=== PATIENT | male | born 1990 | race Caucasian/White ===

== ENCOUNTER 2024-07-17 03:34 | Emergency (ER) | payer OTHER, SELFPAY ==
[2024-07-17 03:41] VITALS: BP 144/88; PULSE 70; TEMP 36.6; O2SAT 99; BMI 18.8
--- OUTSIDE RECORDS SUMMARY | 2024-07-17 03:52 | XMS_ITS | Encounter Summary ---
Author Organization [facility] Address [address] [place] [address] Care Team Providers Care Sweat Band Sewer Name Role Phone Baron Serrato Primary Care Provider [phone] Reason for Visit * Reason Comments Medication Refill Encounter Details Date Type Department Care Team (Late Contact Info) Description 10/14/[address] [place] [id number] Lucio Gauthier MD [facility] [place] [address] Medication Refill Social History Tobacco Use Types Packs/Day Years Used Date Smoking Tobacco: Every Day Cigarettes 1 9 Smokeless Tobacco: Never Alcohol Use Standard Drinks/Week Comments Yes 0 (1 standard drink = 0.6 oz pur e alcohol) socially PHQ-2 Answer Date Recorded PHQ-9 Total Score 0 02/25/2020 Sex and Gender Information Value Date Recorded Sex Assigned at Not on file Legal Sex Male 1:02 PM EST Gender Identity Not on file Sexual Orientation Not on file COVID-19 Exposure Response Date Recorded In the last month, have you been in contact with someone who was confirmed or suspected to have Coronavirus / COVID-19? No / Unsure 10/02/2020 10:57 AM EDT documented as of this encounter Plan of Treatment Upcoming Encounters Date Type Department Care Team (Late Contact Info) Description 08/12/2024 11:00 AM EDT Office Visit [facility] [address] [place] [address] [place] [address] [place] [address] 6 month f/u documented as of this encounter Visit Diagnoses Diagnosis Erectile dysfunction, unspecified erectile dysfunction type documented in this encounter Additional Health Concerns Infection Onset Date Last Indicated Resolved Time COVID-19 (Rule Out) 11/05/2022 11/05/2022 11/06/19 2:11 AM EDT documented as of this encounter Care Teams Sweat Band Sewer Relationship Specialty [place] [address] [place] [address] PCP - General Physician Academic Affairs Coordinator 02/12/24 documented as of this encounter
--- OUTSIDE RECORDS SUMMARY | 2024-07-17 03:52 | XMS_ITS | Encounter Summary ---
Author Organization [facility] [employer] [facility] tem Address [id number] [address] [place] [address] Care Team Providers Care Senior Network Security Architect Name Role Phone No Pcp, No Pcp Primary Care Provider Unavailabl e Encounter Details Date Type Department Care Team (Late st Contact Info) Description 11/24/2016 Documentation [facility] - 8 MED-SURG/ORTHO [address] [place] [phone] Coral Jones, SHADE BANDER-ALIGNMENT TECHNICIAN [address] [place] [address] Social History Tobacco Use Types Packs/Day Years Used Date Smoking Tobacco: Every Day Cigarettes 1 10 Smokeless Tobacco: Never Alcohol Use Standard Drinks/Week Comments Yes 6 (1 standard drink = 0.6 oz pur e alcohol) 2-6 cans beer daily Sex and Gender Information Value Date Recorded Sex Assigned at Male 12/20/2023 12:02 PM EST Legal Sex Male 9:41 PM EDT Gender Identity Male 12/20/2023 12:02 PM EST Sexual Orientation Not on file documented as of this encounter Plan of Treatment Not on file documented as of this encounter Visit Diagnoses Not on filedocumented in this encounter Care Teams Senior Network Security Architect Relationship Specialty Start Date End Date No Pcp, [place] [address] PCP - General Family Medicine 12/20/23 documented as of this encounter
--- OUTSIDE RECORDS SUMMARY | 2024-07-17 03:52 | XMS_ITS | Encounter Summary ---
Author Organization [facility] tem Address [id number] [address] [place] [address] Care Team Providers Care Hydro Operator Name Role Phone No Pcp, No Pcp Primary Care Provider Unavailabl e Encounter Details Date Type Department Care Team (Late st Contact Info) Description 11/24/2016 Telephone [facility] - 8 MED-SURG/ORTHO [address] [place] [phone] Coral Jones, CANCER REGISTRAR-COFFERDAM CONSTRUCTION SUPERVISOR [address] [place] [address] Social History Tobacco Use Types Packs/Day Years [...] on filedocumented in this encounter Care Teams Hydro Operator Relationship Specialty Start Date End Date No Pcp, [place] [address] PCP - General Family Medicine 12/20/23 documented as of this encounter
--- OUTSIDE RECORDS SUMMARY | 2024-07-17 03:52 | XMS_ITS | Clinical Summary ---
Author Organization [employer] tem Address [id number] [address] [place] [address] Care Team Providers Care Absorption Plant Operator Helper Name Role Phone No Pcp, No Pcp Primary Care Provider Unavailabl e Allergies Active Allergy Reactions Criticality Noted Date Comments Aspirin 07/25/2016 Ibuprofen 12/21/2022 Ketorolac Flushing Low 12/22/2022 Medications vefhsu-ssygtbjp-ce ylase 40,000-126,000- 168,000 unit capsule,delayed release(DR/EC) Take 80,000 Units by mouth in the morning and 80,000 Units at noon and 80,000 Units in the evening. Take before meals. 12/17/19 23 Active pantoprazole (PROTONIX) 40 mg EC tablet Take 1 tablet (40 mg total) by mouth every morning before breakfast. 12/09/19 23 Active SENNA 8.6 mg tablet Take 2 tablets (17.2 mg total) by mouth daily as needed for constipation. Active thiamine HCl (VITAMIN B-1) 100 mg tablet Take 1 tablet (100 mg total) by mouth in the morning. 30 tablet 12/25/19 23 Active ondansetron ODT (ZOFRAN ODT) 4 mg disintegrating tablet Dissolve 1 tablet (4 mg total) on tongue every 8 (eight) hours as needed for nausea for up to 10 doses. 10 tablet 12/20/19 24 Active naloxone (NARCAN) 4 mg/actuation spray,non-aerosol nasal spray Administer 1 spray (4 mg total) into alternating nostrils as needed for opioid reversal. 12/20/19 24 Active Active Problems Problem Noted Date Diagnosed Date Alcohol-induced acute pancre atitis, unspecified complication status 12/21/2022 Sinus bradycardia 12/21/2022 Alcohol use disorder 12/21/2022 Acute on chronic pancreatitis 03/31/2022 Alcohol-induced chronic pancreatitis 08/30/2020 H/O acute pancreatitis 03/10/2017 Acute pancreatitis 02/19/2017 History of alcohol abuse 11/24/2016 H/O chronic pancreatitis 11/24/2016 Cigarette nicotine dependence without complicati on 11/24/2016 Smoking 09/24/2016 Pancreatitis 09/19/2016 Resolved Problems Problem Noted Date Diagnosed Date Resolved Date Pancreatic duct stones 10/17/202211/24 Bradycardia 07/16/2022 11/25/2023 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 01/12/2021 11/25/2023 Fatigue 01/12/2021 11/25/2023 Closed posterior dislocation of elbow, left, sequela 08/30/2020 11/25/2023 Herpes simplex virus infection 08/30/2020 11/25/2023 Alcohol-induced acute pancreatitis 11/21/2016 11/24/2016 Alcohol abuse 09/24/2016 11/24/2016 Genital herpes simplex 11/16/201411/24 Immunizations Immunization Administration Dates Next Due Influenza, Injectable, quadrivalent (PF) 017 Pneumococcal Polysaccharide 08/30/2020 Tdap 05/08/2020 Family History Medical History Relation Name Comments Asthma Brother 1 No Known Problems Brother 2 Heart disease Father Tobias Hypertension Father Tobias Other Father Tobias Heart Stent Hyperlipidemia Mother Bisi Hypertension Paternal Grandfather No Known Problems Sister Relation Name Status Comments Brother 1 Alive Brother 2 Alive Daughter 1 Alive Daughter 2 Alive Daughter 3 Alive Father Tobias Alive Mother Bisi Alive Paternal Grandfather Alive Paternal Grandmother Sister Alive Social History Tobacco Use Types Packs/Day Years Used Date Smoking Tobacco: Every Day Cigarettes 1 12 Smokeless Tobacco: Never Tobacco Cessation:Ready to Q uit: Not Asked; Counseling Given: Not Answered Alcohol Use Standard Drinks/Week Comments Yes 51 (1 standard drink = 0.6 oz pu re alcohol) 12 pack beer per day AUDIT-C Answer Date Recorded Frequency of Alcohol Consumption Never 12/03/2019 Average Number of Drinks Not on file 10/23/2 020 Frequency of Binge Drinking Not on file 11/11 PHQ-2 Answer Date Recorded Total Score 3 12/21/2022 Housing Instability Answer Date Recorde d Are you worried or concerned that in the next two months you may not have stable housing that you own, rent or stay in as a part of a household? No 12/23/2022 Childcare Answer Date Recorded Childcare Unknown 07/21/2018 Employment Answer Date Recorded Employment Unknown 07/21/2018 Hunger Screening Answer Date Recorded Within the past 12 months we worried whether our food would run out before we got money to buy more. Never True 12/20/2023 Within the past 12 months th e food we bought just didn't last and we didn't have money to get more. Never True 12/20/2023 Purpose - Life Answer Date Recorded Purpose and direction in life Unknown Sex and Gender Information Value Date Recorded Sex Assigned at Male 12/20/2023 12:02 PM EST Legal Sex Male 9:41 PM EDT Gender Identity Male 12/20/2023 12:02 PM EST Sexual Orientation Not on file Last Filed Vital Signs Vital Sign Reading Time Taken Comments Blood Pressure 132/83 12/20/2023 3:45 PM EST Pulse 71 12/20/2023 3:45 PM EST Temperature 36.2 C (97.1 F) 12/20/2023 11:57 AM EST Respiratory Rate 18 12/20/2023 3:45 PM EST Oxygen Saturation 98% 12/20/2023 4:00 PM EST Inhaled Oxygen Concentration - - Weight 54.9 kg (121 lb) 12/20/2023 11:57 AM EST Height 170.2 cm (5' 7 ) 12/21/2022 8:50 AM EST Body Mass Index 18.95 12/21/2022 8:50 AM EST Plan of Treatment Health Maintenance Due Date Last Done Comments Tobacco Counseling 1988 Depression Screening 12/22/2023 12/21/2022 Tobacco Screening 12/22/2023 12/21/2022 Influenza Vaccine 10/11/2024 11/23/2016 Adult BMI Screening 12/19/2024 12/20/2023 DTaP,Tdap and Td Vaccines (3 - Td or Tdap) 10/06/2033 10/07/2023, 05/08/2020 Goals Goal Patient Goal Type Associated Problems Recent Progress Patient-Stated? Author safe discharge General Yes Marifer Saleem LSW Note: Evaluation of progress towards goal: Home, self care. Patient says he plans to quit drinking without professional support or peer support. SW used Motivational Interviewing to help patient identify goals and motivation for change. He says his primary motivation to make this change is to protect the relationship he has with his children. He also pays child support and time in the hospital is time away from working to support his children. He further states if he does not pay his child support, he could have legal consequences. Patient says he does not identify as an alcoholic because he does not feel the need to drink. He says he chooses to drink again after periods of abstinence because he gets bored. He was not interested in further developing a relapse prevention plan at this time. Medical Devices Not on file Insurance [employer] [facility] Directives * Full Code (Latest Code Status on File) Date Activated Date Inactivated Comments 12/21/2022 1:38 AM 12/23/2022 4:42 PM * Full Code Date Activated Date Inactivated Comments 03/31/2022 9:15 PM 04/02/2022 7:13 PM * Full Code Date Activated Date Inactivated Comments 11/21/2016 4:40 PM 11/24/2016 1:51 PM * Full Code Date Activated Date Inactivated Comments 09/19/2016 5:42 PM 09/24/2016 7:47 PM Care Teams Absorption Plant Operator Helper Relationship Specialty Start Date End Date No Pcp, [place] [address] PCP - General Family Medicine 12/20/23
--- OUTSIDE RECORDS SUMMARY | 2024-07-17 03:52 | XMS_ITS | Clinical Summary ---
Author Organization [employer] [facility] 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 Intended supply: 90 days 180 capsule 1 04/17/19 25 025 Active Additional Information Patient not taking.Reported on 05/24/2024 ketoconazole (NIZORAL) 2 % shampooIndicat ions:Tinea versicolor Apply topically daily as needed. 120 mL 2 06/12/19 25 Active acetaminophen (TYLENOL) 500 MG tablet Take 2 tablets by mouth 2 times daily as needed for Pain 120 tablet 08/24/19 21 022 Discontinued escitalopram (LEXAPRO) 10 MG tabletIndicati ons:Current severe episode of major depressive 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 ([facility]) Take 1 tablet by mouth daily 30 tablet 1 02/13/19 22 022 Discontinued Active Problems Problem Noted Date Diagnosed Date Hospice care 07/07/2024 Pancreatitis, unspecified pancreatitis type 04/10 Chronic pancreatitis due to chronic alcoholism 0 04/25/2024 Alcohol abuse 03/24/2024 Normocytic anemia 03/23/2024 Proteinuria 03/23/2024 Transaminitis 11/22/2023 Moderate cigarette smoker (10-19 per day) 2023 Hyperglycemia 11/22/2023 Poor compliance 11/21/2023 Vapes nicotine containing substance 10/15/2022 Alcohol-induced acute pancre atitis without infection or necrosis 10/14/2022 Acute on chronic pancreatitis 07/16/2022 Alcohol use disorder 07/16/2022 Bradycardia 07/16/2022 Alcohol-induced acute pancreatitis 07/16/2022 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 01/12/2021 Assessment & Plan (02/12/2024 9:31 AM EST): Chronic, at goal (stable), continue current treatment plan Fatigue 01/12/2021 Closed posterior dislocation of elbow, left, seq uela 08/30/2020 Alcohol-induced chronic pancreatitis 08/30/2020 Herpes simplex virus infection 08/30/2020 Need for prophylactic vaccin ation against Streptococcus pneumoniae (pneumococcus) 08/30/2020 Resolved Problems Problem Noted Date Diagnosed Date Resolved Date Alcohol induced acute pancreatitis 11/26/2023 02/12/2024 Acute pancreatitis, unspecif ied complication status, unspecified pancreatitis type 11/21/2023 Malnutrition 11/21/2023 02/12/2024 Pancreatic duct stones 10/17/202202/11 Healthcare maintenance 08/30/202009/29 Encounters Date Type Department Care Team Description 06/11/2024 Telephone [facility] [address] [place] [address] Baron Serrato PA Medication Problem 05/24/2024 9:30 AM EDT Office Visit [facility] [address] [place] [address] Iglesia Esqueda DO Alcoholism (HCC) (Primary Dx); Alcohol-induced chronic pancreatitis (HCC); Nose irritation; Tinea versicolor 05/04/2024 Telephone [facility] [address] [place] [address] Lucio Gavin MD Other 04/25/2024 12:55 PM EDT - 04/28/2024 10:56 AM EDT Hospital Encounter [facility] [address] [place] [address] Kulwant Renee DO Matto, Shevan, MD Acute on chronic pancreatitis (HCC) (Primary Dx); Bradycardia; Chronic pancreatitis due to chronic alcoholism (HCC) Discharge Disposition: Home or Self Care 04/25/2024 Travel 04/16/2024 9:30 AM EST Office Visit [facility] [address] [address] [place] [address] [place] [address] Iglesia Esqueda DO Alcohol-induced chronic pancreatitis (HCC) (Primary Dx); Alcoholism (HCC); Irritation of nose from Last 3 Months Immunizations Immunization Administration Dates Next Due Influenza, FLUARIX, FLULAVAL , FLUZONE (age 6 mo+) and AFLURIA, (age 3 y+), Quadv PF, 0.5mL 11/23/2016 Pneumococcal, PPSV23, PNEUMO VAX 23, (age 2y+), SC/IM, 0.5mL 08/30/2020 TDaP, ADACEL (age 10y-64y), BOOSTRIX (age 10y+), IM, 0.5mL 10/07/2023,05/08/2020 Family History Medical History Relation Name Comments No Known Problems Father No Known Problems Mother Breast Cancer Paternal Aunt Cancer Paternal Grandfather Colon Cancer Paternal Grandfather Heart Disease Paternal Grandfather Relation Name Status Comments Father Alive Mother Alive Paternal Aunt Paternal Grandfather Social History Tobacco Use Types Packs/Day Years Used Date Smoking Tobacco: Former Cigarettes 0.5 17 0 02/10/2005 - 02/10/2022 Smokeless Tobacco: Never Tobacco Cessation:Counseling Given: Yes Alcohol Use Standard Drinks/Week Comments Not Currently 0 (1 standard drink = 0.6 oz pur e alcohol) [facility] Utilities Answer Date Recorded In the past 12 months has th e electric, gas, oil, or water company threatened to shut off services in your home? No 04/26/2024 AUDIT-C Answer Date Recorded Q1: How often do you have a drink containing alcohol? Never 10/07/2023 Q2: How many drinks containi ng alcohol do you have on a typical day when you are drinking? Patient does not drink Q3: How often do you have si x or more drinks on one occasion? Never 10/07/2023 Overall Financial Resource Strain (CARDIA) Answe r Date Recorded How hard is it for you to pa y for the very basics like food, housing, medical care, and heating? Not hard at all 02/12/2024 PHQ-2 Answer Date Recorded PHQ-9 Total Score 0 02/25/2024 Hunger Vital Sign Answer Date Recorded Within the past 12 months, y ou worried that your food would run out before you got the money to buy more. Never true 04/27/19 25 Within the past 12 months, t he food you bought just didn't last and you didn't have money to get more. Never true 04/26/2024 PRAPARE - Transportation Answer Date Re corded In the past 12 months, has l ack of transportation kept you from medical appointments or from getting medications? No 04/10 In the past 12 months, has l ack of transportation kept you from meetings, work, or from getting things needed for daily living? No 04/26/2024 Housing Stability Vital Sign Answer Colby e Recorded In the last 12 months, was t here a time when you were not able to pay the mortgage or rent on time? No 04/26/2024 In the past 12 months, how m any times have you moved where you were living? 0 04/26/2024 At any time in the past 12 m [facility], were you homeless or living in a snf (including now)? No 04/26/2024 Food Insecurity Answer Date Recorded Within the past 12 months, y ou worried that your food would run out before you got the money to buy more. 1 04/26/2024 Within the past 12 months, t he food you bought just didn't last and you didn't have money to get more. 1 04/26/2024 Interpersonal Safety Domain Source: IP Abuse Scr eening Answer Date Recorded Physical abuse Denies 04/25/2024 Verbal abuse Denies 04/25/2024 Emotional abuse Denies 04/25/2024 Financial abuse Denies 04/25/2024 Sexual abuse Denies 04/25/2024 Sex and Gender Information Value Date Recorded Sex Assigned at Not on file Legal Sex Male 1:02 PM EST Gender Identity Not on file Sexual Orientation Not on file Last Filed Vital Signs Vital Sign Reading Time Taken Comments Blood Pressure 102/64 05/24/2024 9:23 AM EDT Pulse 61 05/24/2024 9:23 AM EDT Temperature 36.8 C (98.2 F) 04/28/2024 8:43 AM EDT Respiratory Rate 18 04/27/2024 8:47 PM EDT Oxygen Saturation 99% 05/24/2024 9:23 AM EDT Inhaled Oxygen Concentration - - Weight 57.4 kg (126 lb 9.6 oz) 05/24/2024 9:23 A M EDT Height 170.2 cm (5' 7.01 ) 05/24/2024 9:23 AM ED T Body Mass Index 19.82 05/24/2024 9:23 AM EDT Plan of Treatment Upcoming Encounters Date Type Department Care Team (Late st Contact Info) Description 08/12/2024 11:00 AM EDT Office Visit [facility] [address] [place] [address] [place] [address] [place] [address] [facility] [place] [address] 6 month f/u Health Maintenance Due Date Last Done Comments Flu vaccine Discontinued 11/23/2016 Pneumococcal 0-49 years Vaccine Discontinued HIV screen Discontinued 09/19/2020 DTaP/Tdap/Td vaccine Discontinued 10/07/2023, 05/09/19 21 Hepatitis C screen Discontinued 10/30/2023, 09/19/2020 Depression Monitoring Discontinued 02/25/2024, 025 Medical Devices Implanted Type Area Energy Professional Device Identifier Shelf Expiration Date Model / Serial / Lot Stent Pancreas 7fr L12cm Plas Str Ld Katarina Trailing Radpq - [id number] Implanted:Qty : 1 on 12/05/2023 by Scott Morales MD at [facility] Stent:Bi soto/Pa ncreatic /Iliac N/A: Pancreas [employer]- [id number] 07/01/2024 [id number] 0 / / [id number] Stent Pancreas 7fr L7cm Plas Str Ld Katarina Trailing Radpq Mrk - [id number] Implanted:Qty : 1 on 12/05/2023 by Scott Morales MD at [facility] Stent:Bi soto/Pa ncreatic /Iliac N/A: Duodenum [employer]- [id number] 01/20/2025 [id number] / / [id number] Advanix Panc Stent Strt Lb 9xdw23pl - [id number] Implanted:Qty : 1 on 12/05/2023 by Scott Morales MD at [facility] Stent N/A: Pancreas [employer]- [id number] 04/29/2024 [id number] / / [id number] Stent Pancreas L7cm Od7fr Polymer Pgtl Ld Katarina Ld Radpq Mrk - [id number] Implanted:Qty : 1 on 10/17/2022 by Scott Morales MD at [facility] N/A: Other [employer]- 12/20/2023 [id number] / / [id number] Stent Pancreas 5fr L7cm 0.035in For Drn Obstructed Pancreas - [id number] Implanted:Qty : 1 on 10/17/2022 by Scott Morales MD at [facility] N/A: Other [employer]- 10/30/2024 [id number] / / [id number] System Del 7fr Pancreas Nav[employer] Rx - [id number] Implanted:Qty : 2 on 01/22/2023 by Scott Morales MD at [facility] N/A: Pancreas [employer]WD 05/19/2024 [id number] 0 / / [id number] Stent Pancreas L9cm Od7fr Polymer Pgtl Ld Katarina Ld Radpq Mrk - [id number] Implanted:Qty : 1 on 01/22/2023 by Scott Morales MD at [facility] N/A: Pancreas [employer]WD 04/29/2024 [id number] / / [id number] Stent Pancreas L7cm Od7fr Polymer Pgtl Ld Katarina Ld Radpq Mrk - [id number] Implanted:Qty : 1 on 01/22/2023 by Scott Morales MD at [facility] N/A: Pancreas [employer]WD 04/29/2024 [id number] / / [id number] Stent Pancreas L7cm Od5fr Polymer Pgtl Ld Katarina Ld Radpq Mrk - [id number] Implanted:Qty : 1 on 01/22/2023 by Scott Morales MD at [facility] N/A: Pancreas [employer]WD 06/02/2024 [id number] / / [id number] Explanted Type Area Energy Professional Device Identifier Shelf Expiration Date Model / Serial / Lot Kit Pancreas Stnt 5fr L7cm Plas Str No Ld Katarina Trailing - [id number] Explanted:Qty: 1 on 10/17/2022 at [facility] [employer] 12/08/2022 [id number] / / [id number] Description:Wrong size Procedures Procedure Name Priority Date/Time Associated Diagnosis Comments COMPREHENSIVE METABOLIC PANEL W/ REFLEX TO MG FOR LOW K Routine 04/28/2024 6:50 AM EDT CBC WITH AUTO DIFFERENTIAL Routine 04/28/2024 6:50 AM EDT COMPREHENSIVE METABOLIC PANEL W/ REFLEX TO MG FOR LOW K Routine 04/27/2024 7:15 AM EDT CBC WITH AUTO DIFFERENTIAL Routine 04/27/2024 7:15 AM EDT ECHO (TTE) COMPLETE Routine 04/26/2024 4 :[address] HEAD WO CONTRAST Routine 04/26/2024 1 2:31 PM EDT TSH REFLEX TO FT4 Routine 04/26/2024 7:0 2 AM EDT MAGNESIUM Routine 04/26/2024 7:02 AM EDT COMPREHENSIVE METABOLIC PANEL W/ REFLEX TO MG FOR LOW K STAT 04/26/2024 7:02 AM EDT CBC WITH AUTO DIFFERENTIAL STAT 04/26/2024 7:02 AM EDT POTASSIUM STAT 04/25/2024 9:38 PM EDT URINALYSIS WITH REFLEX TO CULTURE STAT 04/25/2024 2:34 PM EDT EKG 12-LEAD Routine 04/25/2024 2:08 PM EDT POTASSIUM STAT 04/25/2024 2:[address] ABDOMEN PELVIS W IV CONTRAST STAT 04/25/2024 1:38 PM EDT HEPATIC FUNCTION PANEL STAT 5 1:12 PM EDT LIPASE STAT 04/25/2024 1:12 PM EDT BASIC METABOLIC PANEL STAT 04/25/2024 1:12 PM EDT CBC WITH AUTO DIFFERENTIAL STAT 04/25/2024 1:12 PM EDT HEPATITIS PANEL, ACUTE STAT 4 9:13 PM EDT HIV SCREEN Routine 09/19/2020 10:05 AM EDT Healthcare maintenance from Last 3 Months or Most Recently Relevant to Health Maintenance Results * (ABNORMAL) Comprehensive Metabolic Panel w/ Reflex to MG (04/28/2024 6:50 AM EDT) Only the most recent of3 resultswithin the time period is included. Sodium 141 135 - 144 mmol/L 04/28/2024 6:50 AM [facility] Potassium 4.4 3.7 - 5.3 mmol/L 04/28/2024 6:50 AM [facility] Chloride 106 98 - 107 mmol/L 04/28/2024 6:50 AM [facility] CO2 28 20 - 31 mmol/L 04/28/2024 6:50 AM [facility] Anion Gap 7(L) 9 - 17 mmol/L 04/28/2024 6:50 AM [facility] Glucose 135(H) 70 - 99 mg/dL 04/28/2024 6:50 AM [facility] BUN 7 6 - 20 mg/dL 04/28/2024 6:50 AM [facility] Creatinine 0.8 0.7 - 1.2 mg/dL 04/28/2024 6:50 AM [facility] Est, Glom Filt Rate >90 >60 mL/min/1.7 3m2 04/28/2024 6:50 AM [facility] Comment: These results are not intended for use in patients <18 years of age. eGFR results are calculated without a race factor using the 2020 CKD-EPI equation. Careful clinical correlation is recommended, particularly when comparing to results calculated using previous equations. The CKD-EPI equation is less accurate in patients with extremes of muscle mass, extra-renal metabolism of creatine, excessive creatine ingestion, or following therapy that affects renal tubular secretion. Calcium 8.5(L) 8.6 - 10.4 mg/dL 04/28/2024 6:50 AM [facility] Total Protein 5.8(L) 6.4 - 8.3 g/dL 04/28/2024 6:50 AM [facility] Albumin 3.5 3.5 - 5.2 g/dL 04/28/2024 6:50 AM EDT [facility] Albumin/Globulin Ratio 1.5 1.0 - 2.5 04/28/2024 6:50 AM EDT [facility] Total Bilirubin 0.2(L) 0.3 - 1.2 mg/dL 04/28/2024 6:50 AM EDT [facility] Alkaline Phosphatase 82 40 - 129 U/L 04/28/2024 6:50 AM EDT [facility] ALT 34 5 - 41 U/L 04/28/2024 6:50 AM EDT [facility] AST 34 <40 U/L 04/28/2024 6:50 AM T [facility] Blood BLOOD SPECIMEN / Unknown 04/28/2024 6:50 AM EDT 04/28/2024 6:51 AM EDT us Amanda Moyer MD CHEMISTRY ORDERABLES [place] [address], [facility] [phone] [facility] [id number], [facility] [phone] * (ABNORMAL) CBC with Auto Differential (04/28/2024 6:50 AM EDT) Only the most recent of4 resultswithin the time period is included. WBC 5.9 3.5 - 11.0 k/uL 04/28/2024 6:50 AM EDT [facility] RBC 4.03(L) 4.5 - 5.9 m/uL 04/28/2024 6:50 AM EDT [facility] Hemoglobin 12.5(L) 13.5 - 17.5 g/dL 04/28/2024 6:50 AM EDT [facility] Hematocrit 36.4(L) 41 - 53 % 04/28/2024 6:50 AM [facility] MCV 90.2 80 - 100 fL 04/28/2024 6:50 AM [facility] MCH 30.9 26 - 34 pg 04/28/2024 6:50 AM [facility] MCHC 34.3 31 - 37 g/dL 04/28/2024 6:50 AM [facility] RDW 13.6 12.5 - 15.4 % 04/28/2024 6:50 AM [facility] Platelets 192 140 - 450 k/uL 04/28/2024 6:50 AM [facility] MPV 7.9 6.0 - 12.0 fL 04/28/2024 6:50 AM [facility] Neutrophils % 52 36 - 66 % 04/28/2024 6:50 AM [facility] Lymphocytes % 36 24 - 44 % 04/28/2024 6:50 AM [facility] Monocytes % 7 2 - 11 % 04/28/2024 6:50 AM [facility] Eosinophils % 4 1 - 4 % 04/28/2024 6:50 AM [facility] Basophils % 1 0 - 2 % 04/28/2024 6:50 AM [facility] Neutrophils Absolute 3.10 1.8 - 7.7 k/uL 04/28/2024 6:50 AM [facility] Lymphocytes Absolute 2.10 1.0 - 4.8 k/uL 04/28/2024 6:50 AM [facility] Monocytes Absolute 0.40 0.1 - 1.2 k/uL 04/28/2024 6:50 AM [facility] Eosinophils Absolute 0.20 0.0 - 0.4 k/uL 04/28/2024 6:50 AM [facility] Basophils Absolute 0.10 0.0 - 0.2 k/uL 04/28/2024 6:50 AM EDT [facility] Blood BLOOD SPECIMEN / Unknown 04/28/2024 6:50 AM EDT 04/28/2024 6:51 AM EDT us Amanda Moyer MD HEMATOLOGY ORDERABLES Final Resu lt [employer] [facility] [place] [address], [facility] [phone] [facility] [address] [place] [address], [facility] [phone] * ECHO (TTE) COMPLETE (04/26/2024 4:55 PM EDT) LA Minor Florence 4.8 cm [facility] CV CPACS LA Major Florence 4.3 cm [facility] CV CPACS LA Area 2C 17.4 cm2 BS CV CPACS LA Area 4C 13.5 cm2 [facility] CV CPACS LA Volume MOD A2C 50 18 - 58 mL [facility] CV CPA CS LA Volume MOD A4C 33 18 - 58 mL BS CV CPA CS LA Volume BP 43 18 - 58 mL [facility] CV CPACS LA Diameter 2.8 cm BS CV CPACS AR PHT 854.0 ms [facility] CV CPACS AR Max Velocity PISA 4.2 m/s BS CV CPACS AV Peak Velocity 1.4 m/s BS CV CPACS AV Peak Gradient 8 mmHg BS CV CPACS AV Mean Gradient 4 mmHg [facility] CV [facility]ACS AV VTI 32.8 cm [facility] CV [facility]ACS AV Mean Velocity 0.9 m/s BS CV CPACS AV Area by VTI 2.3 cm2 [facility] CV CPACS AV Area by Peak Velocity 2.1 cm2 [facility] CV CPACS Aortic Root 3.4 cm [facility] CV CPACS Ascending Aorta 3.9 cm [facility] IVC Expiration 2.1 cm [facility]ACS IVC Inspiration 1.0 cm [facility] CV CPACS IVSd 0.8 0.6 - 1.0 cm [facility] CV CPACS LVIDd 4.8 4.2 - 5.9 cm [facility] CV CPACS LVIDs 3.1 cm [facility] CV CPACS LVOT Diameter 2.1 cm BS CV CPACS LVOT Mean Gradient 2 mmHg [facility] CV CPACS LVOT VTI 21.9 cm BS CV CPACS LVOT Peak Velocity 0.8 m/s [facility] CV CPACS LVOT Peak Gradient 3 mmHg [facility] CV CPACS LVPWd 0.9 0.6 - 1.0 cm BS CV CPACS LV E' Lateral Velocity 13.50 cm/s [facility] CV CPACS LV E' Septal Velocity 12.50 cm/s [facility] CV CPACS LVOT Area 3.5 cm2 [facility] CV CPACS LVOT SV 75.8 ml [facility] CV CPACS MV E Wave Deceleration Time 215.0 ms [facility] MV A Velocity 0.30 m/s [facility] MV E Velocity 0.70 m/s [facility] CV CPACS RV Basal Dimension 3.0 cm [facility] CV CP[facility] RV Free Wall Peak S' 12.9 cm/s [facility] CV CPACS Body Surface Area 1.61 m2 [facility] CV CPACS Fractional Shortening 2D 35 28 - 44 % [facility] CV CPACS LVIDd Index 2.94 cm/m2 BS CV CPACS LVIDs Index 1.90 cm/m2 [facility] CV CPACS LV RWT Ratio 0.38 BS CV CPACS LV Mass 2D 137.1 88 - 224 g BS CV CPACS LV Mass 2D Index 84.1 49 - 115 g/m2 [facility] CV CPACS MV E/A 2.33 BS CV CPACS E/E' Ratio (Averaged) 5.39 BS CV CPACS E/E' Lateral 5.19 BS CV CPACS E/E' Septal 5.60 BS CV CPACS LA Volume Index BP 26 16 - 34 ml/m2 BS CV CPACS LVOT Stroke Volume Index 46.5 mL/m2 [facility] CV CPACS LA Volume Index MOD A2C 31 16 - 34 ml/m2 BS CV CPACS LA Volume Index MOD A4C 20 16 - 34 ml/m2 BS CV CPACS LA Size Index 1.72 cm/m2 [facility] CV CPACS LA/AO Root Ratio 0.82 BS CV CPACS Ao Root Index 2.09 cm/m2 [facility] CV CPACS Ascending Aorta Index 2.39 cm/m2 [facility] CV CPACS AV Velocity Ratio 0.57 BS CV CPACS LVOT:AV VTI Index 0.67 [facility] CV CPACS LUÍS/BSA VTI 1.4 cm2/m2 [facility] CV CPACS LUÍS/BSA Peak Velocity 1.3 cm2/m2 [facility] CV CPACS EF Physician 60 % [facility] CV CPACS Anatomical Region Laterality Modality Echocardiography Narrative 04/26/2024 5:53 PM EDT Left Ventricle: Normal left ventricular systolic function with a visually estimated EF of 55 - 60%. EF by visual approximation is 60%. Left ventricle size is normal. Normal wall thickness. Normal wall motion. Normal diastolic function. Aortic Valve: Bicuspid valve. Mild sclerosis of the aortic valve cusps. Mild regurgitation. Tricuspid Valve: Trace regurgitation. Pulmonic Valve: Trace regurgitation. Aorta: Normal sized aortic root. Ao root diameter is 3.4 cm. Mildly dilated ascending aorta. Ao ascending diameter is 3.9 cm. Image quality is adequate. Left Ventricle Normal left ventricular systolic function with a visually estimated EF of 55 - 60%. EF by visual approximation is 60%. Left ventricle size is normal. Normal wall thickness. Normal wall motion. Normal diastolic function. Right Ventricle Right ventricle size is normal. Normal systolic function. Left Atrium Left atrium size is normal. LA Vol Index is 26 ml/m2 mL/m2. Normal flow patterns in the pulmonary veins. Right Atrium Right atrium size is normal. IVC/SVC IVC diameter is less than or equal to 21 mm and decreases greater than 50% during inspiration; therefore the estimated right atrial pressure is normal (~3 mmHg). IVC size is normal. Mitral Valve Valve structure is normal. No regurgitation. No stenosis noted. Tricuspid Valve Valve structure is normal. Trace regurgitation. No stenosis noted. Aortic Valve Bicuspid valve. Mild sclerosis of the aortic valve cusps. Mild regurgitation. No stenosis. Pulmonic Valve Valve structure is normal. Trace regurgitation. No stenosis noted. Ascending Aorta Normal sized aortic root. Ao root diameter is 3.4 cm. Mildly dilated ascending aorta. Ao ascending diameter is 3.9 cm. Pericardium No pericardial effusion. Septum No interatrial shunt visualized with color Doppler. Study Details Image quality: adequate. The view(s) performed were parasternal, apical, subcostal and suprasternal. The underlying ECG rhythm was sinus bradycardia. Color flow Doppler was performed and pulse wave and/or continuous wave Doppler was performed. No contrast was given. Wall Scoring Baseline Score Index: 1.00 The left ventricular wall motion is normal. us Amanda Moyer MD CV ECHO ORDERABLES Final Result * CT HEAD WO CONTRAST (04/26/2024 12:31 PM EDT) Anatomical Region Laterality Modality Head Computed Tomogra phy 04/26/2024 1:17 PM EDT Impressions 04/26/2024 1:18 PM EDT No acute intracranial abnormality. Narrative 04/26/2024 1:18 PM EDT EXAMINATION: CT OF THE HEAD WITHOUT CONTRAST 04/26/2024 12:29 pm TECHNIQUE: CT of the head was performed without the administration of intravenous contrast. Automated exposure control, iterative reconstruction, and/or weight based adjustment of the mA/kV was utilized to reduce the radiation dose to as low as reasonably achievable. COMPARISON: CT head performed 03/08/2023. HISTORY: ORDERING SYSTEM PROVIDED HISTORY: numbness and tingling of the right face TECHNOLOGIST PROVIDED HISTORY: numbness and tingling of the right face Reason for Exam: Earlier today pt had tingling to rt side of face and left side of the back of his head. No falls or injury FINDINGS: BRAIN/VENTRICLES: There is no acute intracranial hemorrhage, mass effect, or midline shift. There is satisfactory overall choudhury-white matter differentiation. The ventricular structures are symmetric and unremarkable. The infratentorial structures are unremarkable. ORBITS: The visualized portion of the orbits demonstrate no acute abnormality. SINUSES: The visualized paranasal sinuses and mastoid air cells demonstrate no acute abnormality. SOFT TISSUES/SKULL: No acute abnormality of the visualized skull or soft tissues. Procedure Note Shawn Aguirre MD - 04/26/2024 EXAMINATION: CT OF THE HEAD WITHOUT CONTRAST 04/26/2024 12:29 pm TECHNIQUE: CT of the head was performed without the administration of intravenous contrast. Automated exposure control, iterative reconstruction, and/orweight based adjustment of the mA/kV was utilized to reduce the radiation dose toas low as reasonably achievable. COMPARISON: CT head performed 03/08/2023. HISTORY: ORDERING SYSTEM PROVIDED HISTORY: numbness and tingling of the rightface TECHNOLOGIST PROVIDED HISTORY: numbness and tingling of the right face Reason for Exam: Earlier today pt had tingling to rt side of face andleft side of the back of his head. No falls or injury FINDINGS: BRAIN/VENTRICLES: There is no acute intracranial hemorrhage, mass effect,or midline shift. There is satisfactory overall choudhury-white matter differentiation. The ventricular structures are symmetric andunremarkable. The infratentorial structures are unremarkable. ORBITS: The visualized portion of the orbits demonstrate no acuteabnormality. SINUSES: The visualized paranasal sinuses and mastoid air cellsdemonstrate no acute abnormality. SOFT TISSUES/SKULL: No acute abnormality of the visualized skull orsoft tissues. IMPRESSION: No acute intracranial abnormality. us Amanda Moyer MD IMG CT ORDERABLES Final Result * TSH reflex to FT4 (04/26/2024 7:02 AM EDT) TSH 4.34 0.30 - 5.00 uIU/mL 04/26/2024 7:02 AM EDT [facility] 04/26/2024 7:02 AM EDT 04/26/2024 7:03 AM EDT us Amanda Moyer MD CHEMISTRY ORDERABLES Final [place] [address], [facility] [phone] [facility] [address] [place] [id number], [facility] [phone] * Magnesium (04/26/2024 7:02 AM EDT) Magnesium 1.9 1.6 - 2.6 mg/dL 04/26/2024 7:02 AM EDT [facility] 04/26/2024 7:02 AM EDT 04/26/2024 7:03 AM EDT us Amanda Moyer MD CHEMISTRY ORDERABLES Final Resul t Performing Organization Address City/[facility]/[place] [address], [facility] [phone] [facility] [address] [place] [address], [facility] [phone] * Potassium (04/25/2024 9:38 PM EDT) Only the most recent of2 resultswithin the time period is included. Potassium 4.3 3.7 - 5.3 mmol/L 04/25/2024 9:38 PM EDT [facility] Blood BLOOD SPECIMEN / Unknown 04/25/2024 9:38 PM EDT 04/25/2024 9:39 PM EDT Amanda Moyer MD CHEMISTRY ORDERABLES Final Resul t Performing Organization Address [facility]/[place] [address], [facility] [phone] [facility] [address] [place] [address], [facility] [phone] * (ABNORMAL) Urinalysis with Reflex to Culture (04/25/2024 2:34 PM EDT) Color, UA Yellow Yellow 04/25/2024 2:34 PM EDT [facility] Turbidity UA Clear Clear 04/25/2024 2:34 PM EDT [facility] Glucose, Ur NEGATIVE NEGATIVE mg/dL 04/25/2024 2:34 PM EDT [facility] Bilirubin, Urine NEGATIVE NEGATIVE 04/25/2024 2:34 PM EDT [facility] Ketones, Urine LARGE(A) NEGATIVE mg/dL 04/25/2024 2:34 PM EDT [facility] Specific [place], UA 1.025 1.005 - 1.030 04/25/2024 2:34 PM EDT [facility] Urine Hgb NEGATIVE NEGATIVE 04/25/2024 2:34 PM EDT [facility] pH, Urine 5.5 5.0 - 8.0 04/25/2024 2:34 PM EDT [facility] Protein, UA NEGATIVE NEGATIVE mg/dL 04/25/2024 2:34 PM EDT [facility] Urobilinogen, Urine Normal 0.0 - 1.0 EU/dL 04/25/2024 2:34 PM EDT [facility] Nitrite, Urine NEGATIVE NEGATIVE 04/25/2024 2:34 PM EDT [facility] Leukocyte Esterase, Urine NEGATIVE NEGATIVE 04/25/2024 2:34 PM EDT [facility] Comment Microscopic exam not performed based on chemical results unless requested in original order. 04/25/2024 2:34 PM EDT [facility] Comment 04/25/2024 2:34 PM EDT [facility] Comment Utilizing a urinalysis as the only screening method to exclude a potential uropathogen can be unreliable in many patient populations. Rapid screening tests are less sensitive than culture and if UTI is a clinical possibility, culture should be considered despite a negative urinalysis. 04/25/2024 2:34 PM EDT [facility] URINE SPECIMEN / Unknown 04/25/2024 2:34 PM EDT 04/25/2024 2:42 PM EDT us Kulawnt Renee DO URINE ORDERABLES Final Result [employer] [address] [place] [address], [facility] [phone] [facility] [address] [place] [address], [facility] [phone] * EKG 12 Lead (04/25/2024 2:08 PM EDT) Ventricular Rate 79 BPM [facility] Atrial Rate 79 BPM [facility] P-R Interval 144 ms [facility] QRS Duration 86 ms [facility] Q-T Interval 378 ms [facility] QTc Calculation (Bazett) 433 ms [facility] P [place] 69 degrees [facility] R [place] 73 degrees [facility] T [place] 60 degrees [facility] 04/25/2024 2:08 PM EDT Narrative [facility] - 04/26/2024 10:57 PM EDT Normal sinus rhythm with sinus arrhythmia Normal ECG When compared with ECG of 22-MAR-2024 19:27, No significant change was found Procedure Note Lucio Gavin MD - 04/26/2024 Normal sinus rhythm with sinus arrhythmia Normal ECG When compared with ECG of 22-MAR-2024 19:27, No significant change was found us Kulwant Renee DO ECG ORDERABLES Final Result PN STV MUSE * CT ABDOMEN PELVIS W IV CONTRAST Additional Contrast? None (04/25/2024 1:38 PM EDT) Anatomical Region Laterality Modality Abdomen, Pelvis, Hip Computed To mography 04/25/2024 2:14 PM EDT Impressions 04/25/2024 2:17 PM EDT 1. No acute abnormality in the abdomen or pelvis. 2. Pancreatic duct stent is present. No inflammatory changes surrounding the pancreas, improved since the prior CT scan. Findings of chronic pancreatitis. Narrative 04/25/2024 2:17 PM EDT EXAMINATION: CT OF THE ABDOMEN AND PELVIS WITH CONTRAST 04/25/2024 1:26 pm TECHNIQUE: CT of the abdomen and pelvis was performed with the administration of intravenous contrast. Multiplanar reformatted images are provided for review. Automated exposure control, iterative reconstruction, and/or weight based adjustment of the mA/kV was utilized to reduce the radiation dose to as low as reasonably achievable. COMPARISON: CT scan of the abdomen and pelvis 03/22/2024 HISTORY: ORDERING SYSTEM PROVIDED HISTORY: Pain TECHNOLOGIST PROVIDED HISTORY: Pain Decision Support Exception - unselect if not a suspected or confirmed emergency medical condition->Emergency Medical Condition (MA) Reason for Exam: diffuse abdominal pains FINDINGS: Lower Chest: Visualized portion of the lower chest demonstrates no acute abnormality. Organs: The liver enhances homogeneously. The gallbladder is not visualized. The spleen and adrenal glands are unremarkable. Calcifications throughout the pancreas. A pancreatic duct stent is present. No inflammatory changes surrounding the pancreas, improved since the prior CT scan. The kidneys perfuse contrast symmetrically without hydronephrosis. GI/Bowel: No dilated loops of bowel. The appendix is within normal limits. Pelvis: The urinary bladder and pelvic organs are unremarkable. Peritoneum/Retroperitoneum: Aorta is normal in course and caliber. No free intraperitoneal air or free fluid. No lymphadenopathy. Bones/Soft Tissues: No acute osseous abnormality. Procedure Note Hesham Oh MD - 04/25/2024 EXAMINATION: CT OF THE ABDOMEN AND PELVIS WITH CONTRAST 04/25/2024 1:26 pm TECHNIQUE: CT of the abdomen and pelvis was performed with the administration of intravenous contrast. Multiplanar reformatted images are provided forreview. Automated exposure control, iterative reconstruction, and/or weightbased adjustment of the mA/kV was utilized to reduce the radiation dose to aslow as reasonably achievable. COMPARISON: CT scan of the abdomen and pelvis 03/22/2024 HISTORY: ORDERING SYSTEM PROVIDED HISTORY: Pain TECHNOLOGIST PROVIDED HISTORY: Pain Decision Support Exception - unselect if not a suspected or confirmed emergency medical condition->Emergency Medical Condition (MA) Reason for Exam: diffuse abdominal pains FINDINGS: Lower Chest: Visualized portion of the lower chest demonstrates noacute abnormality. Organs: The liver enhances homogeneously. The gallbladder is notvisualized. The spleen and adrenal glands are unremarkable. Calcificationsthroughout the pancreas. A pancreatic duct stent is present. No inflammatorychanges surrounding the pancreas, improved since the prior CT scan. The kidneys perfuse contrast symmetrically without hydronephrosis. GI/Bowel: No dilated loops of bowel. The appendix is within normallimits. Pelvis: The urinary bladder and pelvic organs are unremarkable. Peritoneum/Retroperitoneum: Aorta is normal in course and caliber. Nofree intraperitoneal air or free fluid. No lymphadenopathy. Bones/Soft Tissues: No acute osseous abnormality. IMPRESSION: 1. No acute abnormality in the abdomen or pelvis. 2. Pancreatic duct stent is present. No inflammatory changes surroundingthe pancreas, improved since the prior CT scan. Findings of chronicpancreatitis. us Kulwant Renee DO IMG CT ORDERABLES Final Result * Lipase (04/25/2024 1:12 PM EDT) Lipase 23 13 - 60 U/L 04/25/2024 1:12 PM EDT [facility] Blood BLOOD SPECIMEN / Unknown 04/25/2024 1:12 PM EDT 04/25/2024 1:25 PM EDT us Kulwant Renee DO CHEMISTRY ORDERABLES Final Res ult [employer] [address] [place] [address], [facility] [phone] [facility] [address] [place] [address], [facility] [phone] * (ABNORMAL) Hepatic Function Panel (04/25/2024 1:12 PM EDT) Albumin 5.0 3.5 - 5.2 g/dL 04/25/2024 1:12 PM EDT [facility] Alkaline Phosphatase 115 40 - 129 U/L 04/25/2024 1:12 PM EDT [facility] ALT 34 5 - 41 U/L 04/25/2024 1:12 PM EDT [facility] AST 45(H) <40 U/L 04/25/2024 1:12 PM EDT [facility] Total Bilirubin 0.8 0.3 - 1.2 mg/dL 04/25/2024 1:12 PM EDT [facility] Bilirubin, Direct 0.2 <0.3 mg/dL 04/25/2024 1:12 PM EDT [facility] Bilirubin, Indirect 0.6 0.0 - 1.0 mg/dL 04/25/2024 1:12 PM EDT [facility] Total Protein 8.7(H) 6.4 - 8.3 g/dL 04/25/2024 1:12 PM EDT [facility] Albumin/Globulin Ratio 1.4 1.0 - 2.5 04/25/2024 1:12 PM EDT [facility] Blood BLOOD SPECIMEN / Unknown 04/25/2024 1:12 PM EDT 04/25/2024 1:25 PM EDT us Kulwant Renee DO CHEMISTRY ORDERABLES Final Res ult [address] [place] [address], [facility] [phone] [facility] [address] [place] [address], [facility] [phone] * (ABNORMAL) Basic Metabolic Panel (04/25/2024 1:12 PM EDT) Sodium 134(L) 135 - 144 mmol/L 04/25/2024 1:12 PM EDT [facility] Potassium 7.0(HH) 3.7 - 5.3 mmol/L 04/25/2024 1:12 PM EDT [facility] Chloride 94(L) 98 - 107 mmol/L 04/25/2024 1:12 PM EDT [facility] CO2 19(L) 20 - 31 mmol/L 04/25/2024 1:12 PM EDT [facility] Anion Gap 21(H) 9 - 17 mmol/L 04/25/2024 1:12 PM EDT [facility] Glucose 89 70 - 99 mg/dL 04/25/2024 1:12 PM EDT [facility] BUN 16 6 - 20 mg/dL 04/25/2024 1:12 PM EDT [facility] Creatinine 1.0 0.7 - 1.2 mg/dL 04/25/2024 1:12 PM EDT [facility] Est, Glom Filt Rate >90 >60 mL/min/1. 73m2 04/25/2024 1:12 PM EDT [facility] Comment: These results are not intended for use in patients <18 years of age. eGFR results are calculated without a race factor using the 2020 CKD-EPI equation. Careful clinical correlation is recommended, particularly when comparing to results calculated using previous equations. The CKD-EPI equation is less accurate in patients with extremes of muscle mass, extra-renal metabolism of creatine, excessive creatine ingestion, or following therapy that affects renal tubular secretion. Calcium 9.1 8.6 - 10.4 mg/dL 04/25/2024 1:12 PM EDT [facility] Blood BLOOD SPECIMEN / Unknown 04/25/2024 1:12 PM EDT 04/25/2024 1:25 PM EDT us Kulwant Renee DO CHEMISTRY ORDERABLES Final Res ult [facility] [employer] [address] [place] [address], [facility] [phone] [facility] [address] [place] [address], [facility] [phone] * Hepatitis Panel, Acute (10/30/2023 9:13 PM EDT) Hepatitis B Surface Ag NONREACTIVE NONREACTIVE 10/30/2023 9:13 PM EDT [facility] [employer] Hepatitis C Ab NONREACTIVE NONREACTIVE 10/30/19 24 9:13 PM EDT [facility] Comment: The hepatitis C procedure used in our laboratory is a Chemiluminescent test specific for three recombinant HCV antigens. A negative anti-HCV result indicates that the antibodies to hepatitis C virus are not present at this time. Individuals with reactive anti-HCV should be considered infected and infectious until proven otherwise. Confirmation of all equivocal or reactive results is recommended by ordering HCV RNA by PCR. Hep B Core Ab, IgM NONREACTIVE NONREACTIVE 10/11 9:13 PM EDT [employer] Hep A IgM NONREACTIVE NONREACTIVE 10/30/2023 9:13 PM EDT [facility] [employer] BLOOD SPECIMEN / Unknown 10/30/2023 9:13 PM EDT 10/30/2023 9:16 PM EDT us Amaury Hooks PA-C IMMUNOLOGY ORDER YAZAN Final Result Performing Organization Address City/[facility]/ZIP Co de Phone Number [facility] [address] [place] [address], [facility] [phone] [employer] [address] [place], [place] [address] [phone] * HIV Screen (09/19/2020 10:05 AM EDT) Pathologist [facility] HIV Ag/Ab NONREACTIVE NONREACTIVE 09/19/2020 10:05 AM EDT [employer] Comment: No laboratory evidence of HIV infection. If acute HIV infection is suspected, consider testing for HIV-1 RNA. BLOOD SPECIMEN / Unknown 09/19/2020 10:05 AM EDT 09/19/2020 10:21 AM EDT us Ganesh Datt IMMUNOLOGY ORDERABLES Final Resu lt Performing Organization Address [facility]/ZIP Co de Phone Number [address] [address], [facility] [phone] from Last 3 Months or Most Recently Relevant to Health Maintenance Insurance [place]ICAID [place] [facility] Member Subscriber Plan / Payer (Ef fective 2023-Present) Name:Christoph Jones Relation to Subscriber:Self Name:Christoph Jones Payer ID:Not on file Group ID:[id number] Type:Not on file Address: [place] [id number] [facility] Advance Directives * Full Code (Latest Code Status on File) Date Activated Date Inactivated Comments 04/25/2024 8:22 PM 04/28/2024 1:01 PM * Full Code Date Activated Date Inactivated Comments 03/22/2024 10:50 PM 03/25/2024 8:21 PM * Full Code Date Activated Date Inactivated Comments 11/20/2023 7:43 PM 11/22/2023 3:31 PM * Full Code Date Activated Date Inactivated Comments 11/18/2023 11:06 PM 11/20/2023 7:41 PM * Full Code Date Activated Date Inactivated Comments 12/06/2022 6:47 AM 12/07/2022 8:01 PM Care Teams Equipment Processer Storage Relationship Specialty [place] [address] [place] [address] PCP - General Physician Filter Cleaner 02/12/24
--- NOTE | 2024-07-17 04:02 | ED_ITS ---
HPI HPI - General Adult General Chief complaint: Abdominal Pain Stated complaint: CRONIC PANCREATITIS Time Seen by Provider: 07/17/24 03:40 Source: patient Mode of arrival: walk-in Limitations: no limitations History of Present Illness HPI narrative: This 34-year-old male presents with a 2-day history of upper and mid abdominal pain accompanying nausea. 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 Symptoms had started 7 years ago. He states that he has had his pancreatic duct stented in the past. The stent was supposed to be removed 7 months ago but that never happened. He has recently moved from [place] to this area and is in the process of trying to find new physicians. Related Data Home Medications ?Medication ?Instructions ?Recorded ?Confirmed [id number] 1 cap PO TID 07/17/24 40,000-126,000-168,000 unit capsule, delay rel (Zenpep) Previous Rx's ?Medication ?Instructions ?Recorded dicyclomine 20 mg tablet 20 mg PO TID PRN abdominal p ain 07/17/24 #20 tabs polyethylene glycol 3350 17 17 g PO DAILY #476 grams 0 07/17/24 gram/dose oral powder (Miralax) Allergies Allergy/AdvReac Type Severity Reaction Status Date / Time aspirin Allergy Unknown Unknown Verified 07/17/24 03:49 Opioid HPI Opioid Management Most Recent Opioid Data: Last Pain Scale 9 Today, 03:41 Review of Systems ROS Status of ROS 10 or more systems reviewed and unremark able except as noted in history and below PFSH PFSH Social History Little interest or pleasure in doing things: not at all Feeling down, depressed, or hopeless: not at all Exam Narrative Exam Narrative: Patient is afebrile and has stable vital signs. He is not icteric or pale. HEENT exam is normal to inspection. Neck is supple. Lung sounds are clear to auscultation bilaterally with good air entry. Heart has regular rate and rhythm. Abdomen is soft and flat with tenderness in the epigastrium and just above the umbilicus. There is no organomegaly. No surgical scars are seen in the abdomen. Extremities are warm and dry. Speech and mentation are clear and intact. There is no facial asymmetry. He moves all extremities actively. Constitutional Vital Signs, click to edit/add: Last Vital Signs Temp 97.8 F 07/17/24 03:41 Pulse 70 07/17/24 03:41 Resp 16 07/17/24 03:41 BP 144/88 H 07/17/24 03:41 Pulse Ox 99 07/17/24 03:41 O2 Del Method Room Air 07/17/24 03:41 Course Vital Signs Vital signs: Vital Signs Temperature 97.8 F 07/17/24 03:41 Pulse Rate 70 07/17/24 03:41 Respiratory Rate 16 07/17/24 03:41 Blood Pressure 144/88 H 07/17/24 03:41 Pulse Oximetry 99 07/17/24 03:41 Oxygen Delivery Method Room Air 07/17/24 03:41 Temperature 97.8 F 07/17/24 03:41 Pulse Rate 70 07/17/24 03:41 Respiratory Rate 16 07/17/24 03:41 Blood Pressure 144/88 H 07/17/24 03:41 Pulse Oximetry 99 07/17/24 03:41 Oxygen Delivery Method Room Air 07/17/24 03:41 Medical Decision Making MDM Narrative Medical decision making narrative: Patient has a normal white count and CT scan of the abdomen pelvis is nondiagnostic for any acute inflammatory condition. There is no evidence of obstruction or perforation. Chronic pancreatitis is noted. Patient is fairly comfortable with IV morphine given in the ED. I upon discharge I am placing her on Bentyl for pain. A lot of stool showed up on the CT scan of the abdomen so I am also prescribing MiraLAX. Follow-up as advised with primary care and his industrial automation engineer. Lab Data Labs: Lab Results 07/17/24 Range/Units 04:15 WBC 7.6 (4.0-11.0) 10^3/uL RBC 4.41 L (4.70-6.10) 10^6/uL Hgb 13.6 L (14.0-18.0) g/dL Hct 39.5 L (42.0-54.0) % MCV 89.6 (80.0-94.0) fL MCH 30.8 (25.9-34.0) pg MCHC 34.4 (29.9-35.2) g/dL RDW 12.4 (11.0-15.0) % Plt Count 251 (150-450) 10^3/uL MPV 9.7 (9.5-13.5) fL Neut % (Auto) 43.5 (43.0-75.0) % Lymph % (Auto) 44.7 (20.5-60.0) % [place] % (Auto) 7.5 (1.7-12.0) % Eos % (Auto) 3.0 (0.9-7.0) % Baso % (Auto) 1.0 (0.2-2.0) % Neut # (Auto) 3.3 (1.4-6.5) 10^3/uL Lymph # (Auto) 3.4 (1.2-3.8) 10^3/uL [place] # (Auto) 0.6 (0.3-0.8) 10^3/uL Eos # (Auto) 0.2 (0.0-0.7) 10^3/uL Baso # (Auto) 0.1 (0.0-0.1) 10^3/uL Abs Immat Gran (auto) 0.02 (0.00-0.03) 10^3/uL Imm/Tot Granulo (auto) 0.3 (0.0-0.5) % Sodium 139 (136-145) mmol/L Potassium 3.6 (3.5-5.1) mmol/L Chloride 101 (98-107) mmol/L Carbon Dioxide 29.1 (21.0-32.0) mmol/L Anion Gap 12.5 BUN 9.0 (7.0-18.0) mg/dL Creatinine 0.83 (0.70-1.30) mg/dL Est GFR ( Amer) >60 (>=60 mL/min/1.73m^2) Est GFR (Non-Af Amer) >60 (>=60 mL/min/1.73m^2) BUN/Creatinine Ratio 10.8 Glucose 140 H (74-106) mg/dL Calcium 9.2 (8.5-10.1) mg/dL Total Bilirubin 0.2 (0.2-1.0) mg/dL Direct Bilirubin 0.1 (0.0-0.2) mg/dL AST 18 (15-37) U/L ALT 32 (16-63) U/L Alkaline Phosphatase 99 (46-116) U/L Total Protein 7.6 (6.4-8.2) g/dL Albumin 3.9 (3.4-5.0) g/dL Globulin 3.7 g/dL Albumin/Globulin Ratio 1.1 Lipase 110.0 H (16.0-77.0) U/L Ethanol Quant <3 mg/dL Discharge Plan Discharge Chief Complaint: Abdominal Pain Clinical Impression: Abdominal pain, Constipation Patient Disposition: Home, Self-Care Time of Disposition Decision: 06:49 Condition: Good Mode of Transportation: Private Vehicle Prescriptions / Home Meds: New polyethylene glycol 3350 [Miralax] 17 gram/dose powder 17 g PO DAILY Qty: 476 0RF dicyclomine 20 mg tablet 20 mg PO TID PRN (Reason: abdominal pain) Qty: 20 0RF No Action Zenpep 40,000-126,000- 168,000 unit capsule,delayed release(DR/EC) 1 cap PO TID Rx Instructions: administer with meals and/or snacks Print Language: Libyan Instructions: Constipation (ED), Abdominal Pain (ED) Additional Instructions: Liquid diet for 24 hours. Follow-up with primary care as soon as possible to establish care. Follow-up with your industrial automation engineer. Return for worsening symptoms. Abstain from alcohol. Referrals: Hermelindo Urena MD [Physician, Family Practice] - 1 week PhysicianNon-Staff, [Primary Care Provider] - 1 week
[2024-07-17] MEDS: ONDANSETRON PF 4 MG/2 ML VIAL IV (04:23)
[2024-07-17] MEDS: 0.9 % SODIUM CHLORIDE 1,000 ML 999 ML IV (04:23)
[2024-07-17] MEDS: MORPHINE SULFATE 2 MG/ML SYRINGE IM (04:24)
[2024-07-17 04:54] LABS: Basophils Absolute Auto 0.1 10^3/uL (0.0-0.1); Eosinophils Absolute Auto 0.2 10^3/uL (0.0-0.7); Hematocrit 39.5 % (42.0-54.0); Hemoglobin 13.6 g/dL (14.0-18.0); Immature Granulocytes Abs Auto 0.02 10^3/uL (0.00-0.03); Immature Granulocytes Pct Auto 0.3 % (0.0-0.5); Lymphocytes Absolute Auto 3.4 10^3/uL (1.2-3.8); Lymphocytes Percent Auto 44.7 % (20.5-60.0); Mean Corpuscular HGB Conc 34.4 g/dL (29.9-35.2); Mean Corpuscular Hemoglobin 30.8 pg (25.9-34.0); Mean Corpuscular Volume 89.6 fL (80.0-94.0); Mean Platelet Volume 9.7 fL (9.5-13.5); Monocytes Absolute Auto 0.6 10^3/uL (0.3-0.8); Monocytes Percent Auto 7.5 % (1.7-12.0); Neutrophils Absolute Auto 3.3 10^3/uL (1.4-6.5); Neutrophils Percent Auto 43.5 % (43.0-75.0); Platelet Count 251 10^3/uL (150-450); Red Blood Count 4.41 10^6/uL (4.70-6.10); Red Cell Distribution Width 12.4 % (11.0-15.0); White Blood Count 7.6 10^3/uL (4.0-11.0)
[2024-07-17 05:08] LABS: Alanine Aminotransferase 32 U/L (16-63); Albumin Globulin Ratio 1.1; Albumin Level 3.9 g/dL (3.4-5.0); Alkaline Phosphatase 99 U/L (46-116); Anion Gap 12.5; Aspartate Amino Transferase 18 U/L (15-37); BUN Creatinine Ratio 10.8; Bilirubin Direct 0.1 mg/dL (0.0-0.2); Bilirubin Total 0.2 mg/dL (0.2-1.0); Calcium 9.2 mg/dL (8.5-10.1); Carbon Dioxide 29.1 mmol/L (21.0-32.0); Chloride 101 mmol/L (98-107); Estimated GFR (African America >60 (>=60 mL/min/1.73m^2); Estimated GFR (Non-African Ame >60 (>=60 mL/min/1.73m^2); Globulin 3.7 g/dL; Glucose 140 mg/dL (74-106); Potassium 3.6 mmol/L (3.5-5.1); Sodium 139 mmol/L (136-145); Total Protein 7.6 g/dL (6.4-8.2)
[2024-07-17 05:24] LABS: Ethanol <3 mg/dL
== END 2024-07-17 07:11 | disposition home or self-care (01) ==
PROVIDERS: Emergency Provider Emergency Medicine
DX: K59.00 Constipation, unspecified (principal); R10.10 Upper abdominal pain, unspecified; K86.1 Other chronic pancreatitis
CPT/HCPCS: 36415; 74176; 80048; 80076; 80320; 81001; 83690; 85025; 96372; 96374; 99284; J2270; J2405

== ENCOUNTER 2024-07-29 12:17 | Emergency (ER) | payer OTHER, SELFPAY ==
[2024-07-29 12:23] VITALS: BP 129/91; PULSE 59; TEMP 36.9; O2SAT 100; BMI 19.1
[2024-07-29] MEDS: 0.9 % SODIUM CHLORIDE 1,000 ML 1000 ML IV (13:05)
[2024-07-29 13:06] LABS: Basophils Percent Auto 0.4 % (0.2-2.0); Eosinophils Absolute Auto 0.1 10^3/uL (0.0-0.7); Eosinophils Percent Auto 1.2 % (0.9-7.0); Hematocrit 38.9 % (42.0-54.0); Hemoglobin 13.1 g/dL (14.0-18.0); Immature Granulocytes Abs Auto 0.02 10^3/uL (0.00-0.03); Immature Granulocytes Pct Auto 0.2 % (0.0-0.5); Lymphocytes Absolute Auto 1.8 10^3/uL (1.2-3.8); Lymphocytes Percent Auto 18.3 % (20.5-60.0); Mean Corpuscular HGB Conc 33.7 g/dL (29.9-35.2); Mean Corpuscular Hemoglobin 30.8 pg (25.9-34.0); Mean Corpuscular Volume 91.5 fL (80.0-94.0); Mean Platelet Volume 9.4 fL (9.5-13.5); Monocytes Absolute Auto 0.5 10^3/uL (0.3-0.8); Monocytes Percent Auto 5.4 % (1.7-12.0); Neutrophils Absolute Auto 7.4 10^3/uL (1.4-6.5); Neutrophils Percent Auto 74.5 % (43.0-75.0); Platelet Count 201 10^3/uL (150-450); Red Blood Count 4.25 10^6/uL (4.70-6.10); Red Cell Distribution Width 12.6 % (11.0-15.0); White Blood Count 9.9 10^3/uL (4.0-11.0)
[2024-07-29] MEDS: ONDANSETRON PF 4 MG/2 ML VIAL IV (13:06)
[2024-07-29] MEDS: FAMOTIDINE/PF 20 MG/2 ML VIAL IV (13:06)
[2024-07-29 13:21] LABS: Alanine Aminotransferase 29 U/L (16-63); Albumin Globulin Ratio 1.1; Albumin Level 3.6 g/dL (3.4-5.0); Alkaline Phosphatase 85 U/L (46-116); Anion Gap 10.5; Aspartate Amino Transferase 18 U/L (15-37); BUN Creatinine Ratio 8.5; Bilirubin Total 0.5 mg/dL (0.2-1.0); Calcium 8.7 mg/dL (8.5-10.1); Carbon Dioxide 30.5 mmol/L (21.0-32.0); Chloride 102 mmol/L (98-107); Estimated GFR (African America >60 (>=60 mL/min/1.73m^2); Estimated GFR (Non-African Ame >60 (>=60 mL/min/1.73m^2); Globulin 3.4 g/dL; Glucose 122 mg/dL (74-106); Sodium 139 mmol/L (136-145)
[2024-07-29] MEDS: MORPHINE SULFATE 2 MG/ML SYRINGE IV ×2 (13:49→16:41)
--- NOTE | 2024-07-29 13:59 | CT_ITS ---
The [address] [address] Patient Name: BLUE CAO MRN: [id number] date: 1990 Sex: M Assigned Patient Location: ER Current Patient Location: ER Accession/Order Number: [id number] Exam Date: 07/29/2024 14:22 Report Date: 07/29/2024 14:28 At the request of: MAXIMINO STEELE MD Procedure: CT abdomen pelvis wo con CT Abdomen and Pelvis withoutcontrast TECHNIQUE: Axial imaging with 2-D reconstruction. . The CT exam was performed using one or more the following dose reduction techniques: Automated exposure control, adjustment of the MA and/or Kv according to patient size, or use of the iterative reconstruction technique. COMPARISON: 07/17/2024 History: Abdominal pain and nausea. History of pancreatitis LIMITATIONS: No IV contrast LOWER THORAX Unremarkable LIVER: Unremarkable GALLBLADDER: No gallbladder abnormality identified. BILE DUCTS: No dilatation SPLEEN: Unremarkable PANCREAS: Redemonstration of chronic pancreatitis and unchanged pancreatic duct stent. Mild adjacent inflammatory changes. Correlate with laboratory assessment. No pseudocyst or abscess. ADRENAL GLANDS: Unremarkable KIDNEYS:Punctate bilateral renal calculi redemonstrated. AORTA: No abdominal aortic aneurysm identified. RETROPERITONEUM: No significant retroperitoneal abnormalities identified. MESENTERY:Unremarkable STOMACH:Unremarkable SMALL BOWEL: The small bowel loops are nondistended. APPENDIX: The appendix is normal. COLON: Moderate constipation. URINARY BLADDER: Nondistended REPRODUCTIVE SYSTEM: Reproductive structures are unremarkable. PNEUMOPERITONEUM: None PERITONEAL FLUID:None BONY STRUCTURES: Unremarkable ABDOMINAL WALL: Unremarkable CT/CT abdomen pelvis wo con IMPRESSION: Acute on chronic pancreatitis. Correlate with laboratory assessment. No pseudocyst formation. No abscess. Unchanged pancreatic duct stent. Punctate bilateral nephrolithiasis without hydronephrosis. Nondistended urinary bladder. Impression dictated by: Sabino Sanders M.D. 07/29/2024 2:28 PM Dictation Location: [place] [address] Electronically authenticated by: [id number] Y Date: 07/29/2024 14:28
--- NOTE | 2024-07-29 15:27 | ECG_ITS ---
[facility] Test Date: 2024-07-29 Pat Name: BLUE CAO Department: Room: - Gender: Male Sorter Operator: : 1990 Requested By: [id number] Order Number: [id number] Reading MD: YEIMI MONTES DE OCA M.D. Measurements Intervals [place] Rate: 52 P: 72 NH: 144 QRS: 72 QRSD: 80 T: 47 QT: 404 QTc: 383 Interpretive Statements 1100 Sinus rhythm 9110 normal ECG No previous ECG available for comparison Electronically Signed On 07-29-2024 17:54:08 EDT by YEIMI MONTES DE OCA M.D.
--- NOTE | 2024-07-29 15:28 | PC.NURSE ---
pt puts call light on and reports his HR is in 40's has hx of bradycardia. Mother recently had a heart attack and he was concerned. Ekg cables hooked up to patient and EKG was done, given to Dr. Fernandez to review. Pt also mentions to this nurse that he vapes all day and does drink too much, he is here for pancreatitis. [employer] encourages him to try to change things he can control as family history isn't controllable.
[2024-07-29 16:23] LABS: Troponin I High Sensitivity <4.0 pg/mL (4.0-76.1)
--- NOTE | 2024-07-29 16:39 | ED_ITS ---
HPI - Abdominal Pain General Chief Complaint: Abdominal Pain Stated Complaint: ABDOMINAL PAIN Time Seen by Provider: 07/29/24 12:32 Source: patient Mode of arrival: walk-in Limitations: no limitations History of Present Illness HPI narrative: The patient is a 30 old male with history of alcoholic pancreatitis coming to the ER after he was just evaluated yesterday in another facility, the patient then was diagnosed with acute pancreatitis and discharged home with supportive care, he did not vomit since yesterday he has been discharged with Zofran the patient mentioned that tramadol is causing him to sleep and he thinks that he needs some other pain medication. The patient did not vomit since yesterday he has been drinking only liquids mostly Gatorade. The patient admit that he was drinking alcohol almost 3 days ago when this started Related Data Home Medications ?Medication ?Instructions ?Recorded ?Confirmed gxpkma-ujzztcgu-cfrwzyw 2 cap PO TID 07/17/24 40,000-126,000-168,000 unit capsule, delay rel (Zenpep) Previous Rx's ?Medication ?Instructions ?Recorded dicyclomine 20 mg tablet 20 mg PO TID PRN abdominal p ain 07/17/24 #20 tabs polyethylene glycol 3350 17 17 g PO DAILY #476 grams 0 07/17/24 gram/dose oral powder (Miralax) Allergies Allergy/AdvReac Type Severity Reaction Status Date / Time aspirin Allergy Unknown Unknown Verified 07/29/24 12:28 Review of Systems ROS Status of ROS 10 or more systems reviewed and unremark able except as noted in history and below PFSH PFS Social History Little interest or pleasure in doing things: not at all Feeling down, depressed, or hopeless: not at all Exam Narrative Exam Narrative: Nurses notes and vital signs reviewed and patient is not hypoxic. General: Well-appearing and in no apparent distress. Skin: Warm, dry, no pallor noted. No rash. Head: Normocephalic, atraumatic. Neck: Supple, non-tender. Eye: Pupils are equal, round and EOMI. No scleral icterus. Ears, Nose, Mouth, and Throat: TM are clear, no nasal mucosal hypertrophy. Oral mucosa is moist, no posterior oropharynx erythema, uvula is mid-line Cardiovascular: Regular Rate and Rhythm without murmur, gallop or rub. Respiratory: No accessory muscle use or respiratory distress. Lungs are clear to auscultation, no wheezing, rales or rhonchi Chest Wall: no tenderness Back: No midline thoracic or lumbar vertebral tenderness. No CVA tenderness Musculoskeletal: normal ROM, no calf or popliteal tenderness, no lower extremity edema/swelling GI: Abdomen is soft, non-distended. Normal bowel sounds. No masses appreciated. Epigastric discomfort Neurological: A&O x4. No cranial nerve dysfunction observed.t. Constitutional Vital Signs, click to edit/add: Last Vital Signs Temp 98.4 F 07/29/24 12:23 Pulse 59 L 07/29/24 12:23 Resp 16 07/29/24 12:23 BP 129/91 07/29/24 12:23 Pulse Ox 100 07/29/24 12:23 O2 Del Method Room Air 07/29/24 12:23 Course Vital Signs Vital signs: Vital Signs Temperature 98.4 F 07/29/24 12:23 Pulse Rate 59 L 07/29/24 12:23 Respiratory Rate 16 07/29/24 12:23 Blood Pressure 129/91 07/29/24 12:23 Pulse Oximetry 100 07/29/24 12:23 Oxygen Delivery Method Room Air 07/29/24 12:23 Temperature 98.4 F 07/29/24 12:23 Pulse Rate 59 L 07/29/24 12:23 Respiratory Rate 16 07/29/24 12:23 Blood Pressure 129/91 07/29/24 12:23 Pulse Oximetry 100 07/29/24 12:23 Oxygen Delivery Method Room Air 07/29/24 12:23 MDM - Abdominal Pain MDM Narrative Medical decision making narrative: The patient EKG showing sinus rhythm with a heart rate of [address] elevation or depression The patient which is diagnosed with pancreatitis yesterday he does not have any vomiting that is significant he has not been eating well because he is mostly drinking only fluids and he is tolerating that well Patient is coming to the ER requesting IV medication for pain control I did explain to him that right now he does not any IV fluid he mostly is providing p.o. well and that is usually the treatment for acute pancreatitis as well Specially that he is not vomiting the patient was provided here with IV fluid 1 L and his CBC and chemistry showed no acute significant pathology with a lipase of 499 CT of the abdomen pelvis showed no acute pathology and it was obtained because the patient history of a stent placement before and the fact that the pain is continuous Patient was tolerating p.o. in the ER with no difficulty and he was discharged home to continue taking his tramadol and supportive care The patient is to follow up with primary care physician in next 2-3 days or to return to the emergency department should any of the signs or symptoms worsen or new symptoms develop. The patient agrees with the following Diagnosis and Treatment plan and the patient will be discharged home. Lab Data Labs: Lab Results 07/29/24 07/29/24 Range/Units 12:56 15:53 WBC 9.9 (4.0-11.0) 10^3/uL RBC 4.25 L (4.70-6.10) 10^6/uL Hgb 13.1 L (14.0-18.0) g/dL Hct 38.9 L (42.0-54.0) % MCV 91.5 (80.0-94.0) fL MCH 30.8 (25.9-34.0) pg MCHC 33.7 (29.9-35.2) g/dL RDW 12.6 (11.0-15.0) % Plt Count 201 (150-450) 10^3/uL MPV 9.4 L (9.5-13.5) fL Neut % (Auto) 74.5 (43.0-75.0) % Lymph % (Auto) 18.3 L (20.5-60.0) % [place] % (Auto) 5.4 (1.7-12.0) % Eos % (Auto) 1.2 (0.9-7.0) % Baso % (Auto) 0.4 (0.2-2.0) % Neut # (Auto) 7.4 H (1.4-6.5) 10^3/uL Lymph # (Auto) 1.8 (1.2-3.8) 10^3/uL [place] # (Auto) 0.5 (0.3-0.8) 10^3/uL Eos # (Auto) 0.1 (0.0-0.7) 10^3/uL Baso # (Auto) 0.0 (0.0-0.1) 10^3/uL Abs Immat Gran (auto) 0.02 (0.00-0.03) 10^3/uL Imm/Tot Granulo (auto) 0.2 (0.0-0.5) % Sodium 139 (136-145) mmol/L Potassium 4.0 (3.5-5.1) mmol/L Chloride 102 (98-107) mmol/L Carbon Dioxide 30.5 (21.0-32.0) mmol/L Anion Gap 10.5 BUN 6.0 L (7.0-18.0) mg/dL Creatinine 0.71 (0.70-1.30) mg/dL Est GFR ( Amer) >60 (>=60 mL/min/1.73m^2) Est GFR (Non-Af Amer) >60 (>=60 mL/min/1.73m^2) BUN/Creatinine Ratio 8.5 Glucose 122 H (74-106) mg/dL Calcium 8.7 (8.5-10.1) mg/dL Total Bilirubin 0.5 (0.2-1.0) mg/dL AST 18 (15-37) U/L ALT 29 (16-63) U/L Alkaline Phosphatase 85 (46-116) U/L Troponin I High Sens <4.0 L (4.0-76.1) pg/mL Total Protein 7.0 (6.4-8.2) g/dL Albumin 3.6 (3.4-5.0) g/dL Globulin 3.4 g/dL Albumin/Globulin Ratio 1.1 Lipase 499.0 H (16.0-77.0) U/L Discharge Plan Discharge Chief Complaint: Abdominal Pain Clinical Impression: Pancreatitis Patient Disposition: Home, Self-Care Time of Disposition Decision: 16:29 Condition: Good Prescriptions / Home Meds: No Action Zenpep 40,000-126,000- 168,000 unit capsule,delayed release(DR/EC) 2 cap PO TID Rx Instructions: administer with meals and/or snacks polyethylene glycol 3350 [Miralax] 17 gram/dose powder 17 g PO DAILY Qty: 476 0RF dicyclomine 20 mg tablet 20 mg PO TID PRN (Reason: abdominal pain) Qty: 20 0RF Print Language: [place] Citizen Instructions: Pancreatitis (ED), Full Liquid Diet (DC) Referrals: Physician,Non-Staff, MD [Primary Care Provider] - 1 week Discharge Date/Time: 07/29/24 16:59
== END 2024-07-29 16:59 | disposition home or self-care (01) ==
PROVIDERS: Emergency Provider Emergency Medicine
DX: K85.90 Acute pancreatitis without necrosis or infection, unspecified (principal); R10.84 Generalized abdominal pain
CPT/HCPCS: 36415; 74176; 80053; 83690; 84484; 85025; 93005; 96361; 96374; 96375; 96376; 99285; J2270; J2405; J3490

== ENCOUNTER 2024-08-31 20:43 | Emergency (ER) | payer OTHER, SELFPAY ==
[2024-08-31 20:47] VITALS: BP 180/104; PULSE 63; TEMP 36.6; O2SAT 100; BMI 19.0
--- NOTE | 2024-08-31 20:48 | CT_ITS ---
The [address] [address] Patient Name: BLUE CAO MRN: [id number] date: 1990 Sex: M Assigned Patient Location: ED.MAIN Current Patient Location: ED.MAIN Accession/Order Number: [id number] Exam Date: 08/31/2024 22:35 Report Date: 08/31/2024 22:42 At the request of: LISA JIMENEZ Procedure: CT abdomen pelvis w con CT Abdomen and Pelvis withcontrast TECHNIQUE: Axial imaging with 2-D reconstruction.100 cc of Omnipaque 300. The CT exam was performed using one or more the following dose reduction techniques: Automated exposure control, adjustment of the MA and/or Kv according to patient size, or use of the iterative reconstruction technique. COMPARISON: 07/29/2024 History: Abdominal pain. History of pancreatitis. LIMITATIONS: None LOWER THORAX Unremarkable LIVER: Unremarkable GALLBLADDER: No gallbladder abnormality identified. BILE DUCTS: No dilatation SPLEEN: Unremarkable PANCREAS: Scattered pancreatic calcifications throughout consistent with chronic pancreatitis pancreatic duct stent present. There is in adequate position. Mild inflammatory changes pancreatic head. This suggests acute component. ADRENAL GLANDS: Unremarkable KIDNEYS:Punctate bilateral nephrolithiasis. No hydronephrosis. AORTA: No abdominal aortic aneurysm identified. RETROPERITONEUM: No significant retroperitoneal abnormalities identified. MESENTERY:Unremarkable STOMACH:Unremarkable SMALL BOWEL: The small bowel loops are nondistended. APPENDIX: The appendix is normal. COLON: Moderate constipation URINARY BLADDER: Urinary bladder wall thickening. May represent muscular hypertrophy. REPRODUCTIVE SYSTEM: Prostatomegaly PNEUMOPERITONEUM: None PERITONEAL FLUID:None BONY STRUCTURES: Unremarkable ABDOMINAL WALL: Unremarkable CT/CT abdomen pelvis w con IMPRESSION: No acute findings. Chronic pancreatitis. Mild acute pancreatitis may be present. Pancreatic stent in place. Impression dictated by: Saibno Sanders M.D. 08/31/2024 10:42 PM Dictation Location: [facility] Electronically authenticated by: [id number] Y Date: 08/31/2024 22:42
--- NOTE | 2024-08-31 20:54 | ED.ABDPAIN1 ---
Documented by User: Heather Angeles 09/05/24 15:14 HPI - Abdominal Pain General Chief Complaint: Abdominal Pain Stated Complaint: PANCREATITUS/ HURTS TO EAT OR DRINK Time Seen by Provider: 08/31/24 20:46 Source: patient Mode of arrival: walk-in Limitations: no limitations History of Present Illness HPI narrative: 34-year-old male presents here with chief complaint of abdominal pain. Patient states he has a history of chronic pancreatitis due to alcoholism. He states he has not drank any alcohol since last week. Patient was seen here last month diagnosed with pancreatitis. He states he recently moved to the area from [place]. He has not been able to take his Nathen Pap because not been able to get a refill states he does not have a car transportation to do so. Patient is currently afebrile. He states he had a friend dropped him off here to the ER. Related Data Home Medications �Medication �Instructions �Recorded �Confirmed elxjma-vjvvxyav-hlenecc 2 cap PO TID 07/17/24 08/31/24 40,000-126,000-168,000 unit capsule, delay rel (Zenpep) Previous Rx's �Medication �Instructions �Recorded dicyclomine 20 mg tablet 20 mg PO TID PRN abdominal pain 07/17/24 #20 tabs polyethylene glycol 3350 17 17 g PO DAILY #476 grams 07/17/24 gram/dose oral powder (Miralax) Allergies Allergy/AdvReac Type Severity Reaction Status Date / Time aspirin Allergy Unknown Unknown Verified 08/31/24 20:51 Review of Systems ROS Status of ROS 10 or more systems reviewed and unremarkable except as noted in history and below PFSH PFSH Social History Little interest or pleasure in doing things: not at all Feeling down, depressed, or hopeless: not at all Exam Narrative Exam Narrative: All Systems are negative except as noted/marked.All systems reviewed and otherwise negative Nurses note and vital signs reviewed and patient is not hypoxic. General: The patient appears well and in no apparent distress. Patient is resting comfortably on cart. Skin: Warm, dry, no pallor noted. There is no rash noted. Head: Normocephalic, atraumatic Eye: Normal conjunctiva, no drainage, EOMI. PERRL Ears, Nose, Mouth, and Throat: oral mucosa is moist. Nares patent. Mouth without vesicles. Ear canals patent. Tm's without Erythema Cardiovascular: Regular Rate and Rhythm Respiratory: Patient is in no distress, no accessory muscle use, lungs are clear to auscultation, no wheezing, rales or rhonchi Back: no CVA tenderness bilaterally to percussion. GI: upper quadrant pain, Normal bowel sounds, no tenderness to palpation, no masses appreciated. No rebound, guarding, or rigidity noted. Musculoskeletal: The patient has no evidence of calf tenderness, no pitting edema, symmetrical pulses noted bilaterally Neurological: A&O x4, normal speech Psychiatric: Cooperative Constitutional Vital Signs, click to edit/add: Last Vital Signs Temp 98.2 F 08/31/24 23:35 Pulse 51 L 08/31/24 23:35 Resp 16 08/31/24 23:35 BP 139/81 08/31/24 23:35 Pulse Ox 99 08/31/24 23:35 O2 Del Method Room Air 08/31/24 23:35 Course Vital Signs Vital signs: Vital Signs Temperature 97.8 F 08/31/24 20:47 Pulse Rate 63 08/31/24 20:47 Respiratory Rate 16 08/31/24 20:47 Blood Pressure 180/104 H 08/31/24 20:47 Pulse Oximetry 100 08/31/24 20:47 Oxygen Delivery Method Room Air 08/31/24 20:47 Temperature 98.2 F 08/31/24 23:35 Pulse Rate 51 L 08/31/24 23:35 Respiratory Rate 16 08/31/24 23:35 Blood Pressure 139/81 08/31/24 23:35 Pulse Oximetry 99 08/31/24 23:35 Oxygen Delivery Method Room Air 08/31/24 23:35 MDM - Abdominal Pain MDM Narrative Medical decision making narrative: 34-year-old male presents here with chief complaint of abdominal pain. Patient states he has a history of chronic pancreatitis due to alcoholism. He states he has not drank any alcohol since last week. Patient was seen here last month diagnosed with pancreatitis. He states he recently moved to the area from [place]. He has not been able to take his Nathen Pap because not been able to get a refill states he does not have a car transportation to do so. Patient is currently afebrile. He states he had a friend dropped him off here to the ER. CBC and CMP were reviewed. Patient's lipase is 130 compared to 440 that was previous. Patient is been given IV fluids he is CT scan is currently pending. Transition of care to Dr. Jamison Differential Diagnosis Differential diagnosis: Likely acute appendicitis, constipation and pancreatitis Medical Records Attestation: I reviewed the patient's medical records. Lab Data Attestation: I reviewed the patient's lab results. Labs: Lab Results 08/31/24 08/31/24 Range/Units 20:55 21:50 WBC 8.7 (4.0-11.0) 10^3/uL RBC 4.31 L (4.70-6.10) 10^6/uL Hgb 13.5 L (14.0-18.0) g/dL Hct 40.1 L (42.0-54.0) % MCV 93.0 (80.0-94.0) fL MCH 31.3 (25.9-34.0) pg MCHC 33.7 (29.9-35.2) g/dL RDW 13.3 (11.0-15.0) % Plt Count 203 (150-450) 10^3/uL MPV 9.6 (9.5-13.5) fL Neut % (Auto) 59.9 (43.0-75.0) % Lymph % (Auto) 28.8 (20.5-60.0) % [place] % (Auto) 8.2 (1.7-12.0) % Eos % (Auto) 2.1 (0.9-7.0) % Baso % (Auto) 0.7 (0.2-2.0) % Neut # (Auto) 5.2 (1.4-6.5) 10^3/uL Lymph # (Auto) 2.5 (1.2-3.8) 10^3/uL [place] # (Auto) 0.7 (0.3-0.8) 10^3/uL Eos # (Auto) 0.2 (0.0-0.7) 10^3/uL Baso # (Auto) 0.1 (0.0-0.1) 10^3/uL Abs Immat Gran (auto) 0.03 (0.00-0.03) 10^3/uL Imm/Tot Granulo (auto) 0.3 (0.0-0.5) % Sodium 141 (136-145) mmol/L Potassium 4.0 (3.5-5.1) mmol/L Chloride 104 (98-107) mmol/L Carbon Dioxide 29.0 (21.0-32.0) mmol/L Anion Gap 12.0 BUN 10.0 (7.0-18.0) mg/dL Creatinine 0.88 (0.70-1.30) mg/dL Est GFR ( Amer) >60 (>=60 mL/min/1.73m^2) Est GFR (Non-Af Amer) >60 (>=60 mL/min/1.73m^2) BUN/Creatinine Ratio 11.4 Glucose 119 H (74-106) mg/dL Lactate 1.1 (0.4-2.0) mmol/L Calcium 9.1 (8.5-10.1) mg/dL Total Bilirubin 0.2 (0.2-1.0) mg/dL Direct Bilirubin 0.1 (0.0-0.2) mg/dL AST 27 (15-37) U/L ALT 32 (16-63) U/L Alkaline Phosphatase 86 (46-116) U/L Total Protein 7.1 (6.4-8.2) g/dL Albumin 3.4 (3.4-5.0) g/dL Globulin 3.7 g/dL Albumin/Globulin Ratio 0.9 Lipase 130.0 H (16.0-77.0) U/L Urine Color Lt. yellow (YELLOW) Urine Clarity Clear (CLEAR) Urine pH 6.5 (5.0-9.0) Ur Specific [place] 1.010 (1.005-1.025) Urine Protein Negative (NEG/TRACE) mg/dL Urine Glucose (UA) Negative (NEGATIVE) mg/dL Urine Ketones Negative (NEGATIVE) mg/dL Urine Occult Blood Negative (NEGATIVE) Urine Nitrite Negative (NEGATIVE) Urine Bilirubin Negative (NEGATIVE) Urine Urobilinogen 0.2 (0.2-1.0) EU/dL Ur Leukocyte Esterase Negative (NEGATIVE) Urine RBC None seen (0-2) #/HPF Urine WBC None seen (NONE SEEN) #/HPF Ur Squamous Epith Cells None seen (NONE/RARE) #/LPF Urine Crystals Seen A (None Seen) #/HPF Amorphous Sediment Many Urine Bacteria None seen (NONE SEEN) #/HPF Urine Casts None seen (NONE SEEN) #/LPF Urine Mucus Small A (NONE SEEN) Ur Culture Indicated? No Discharge Plan Discharge Chief Complaint: Abdominal Pain Clinical Impression: Pancreatitis Patient Disposition: Home, Self-Care Condition: Good Mode of Transportation: Private Vehicle Prescriptions / Home Meds: No Action Zenpep 40,000-126,000- 168,000 unit capsule,delayed release(DR/EC) 2 cap PO TID Rx Instructions: administer with meals and/or snacks polyethylene glycol 3350 [Miralax] 17 gram/dose powder 17 g PO DAILY Qty: 476 0RF dicyclomine 20 mg tablet 20 mg PO TID PRN (Reason: abdominal pain) Qty: 20 0RF Print Language: [place] Instructions: Pancreatitis (ED) Referrals: Physician,Non-Staff, [Primary Care Provider] - 1 week Discharge Date/Time: 08/31/24 23:40 Documented by User: Amrik Jamison MD 08/31/24 23:29 HPI - Abdominal Pain General Chief Complaint: Abdominal Pain Stated Complaint: PANCREATITUS/ HURTS TO EAT OR DRINK Time Seen by Provider: 08/31/24 20:46 Related Data Home Medications �Medication �Instructions �Recorded �Confirmed maavfi-gzgyeblq-vklvijh 2 cap PO TID 07/17/24 08/31/24 40,000-126,000-168,000 unit capsule, delay rel (Zenpep) Previous Rx's �Medication �Instructions �Recorded dicyclomine 20 mg tablet 20 mg PO TID PRN abdominal pain 07/17/24 #20 tabs polyethylene glycol 3350 17 17 g PO DAILY #476 grams 07/17/24 gram/dose oral powder (Miralax) Allergies Allergy/AdvReac Type Severity Reaction Status Date / Time aspirin Allergy Unknown Unknown Verified 08/31/24 20:51 PFSH PFSH Social History Little interest or pleasure in doing things: not at all Feeling down, depressed, or hopeless: not at all Exam Constitutional Vital Signs, click to edit/add: Last Vital Signs Temp 98.2 F 08/31/24 23:35 Pulse 51 L 08/31/24 23:35 Resp 16 08/31/24 23:35 BP 139/81 08/31/24 23:35 Pulse Ox 99 08/31/24 23:35 O2 Del Method Room Air 08/31/24 23:35 Course Vital Signs Vital signs: Vital Signs Temperature 97.8 F 08/31/24 20:47 Pulse Rate 63 08/31/24 20:47 Respiratory Rate 16 08/31/24 20:47 Blood Pressure 180/104 H 08/31/24 20:47 Pulse Oximetry 100 08/31/24 20:47 Oxygen Delivery Method Room Air 08/31/24 20:47 Temperature 98.2 F 08/31/24 23:35 Pulse Rate 51 L 08/31/24 23:35 Respiratory Rate 16 08/31/24 23:35 Blood Pressure 139/81 08/31/24 23:35 Pulse Oximetry 99 08/31/24 23:35 Oxygen Delivery Method Room Air 08/31/24 23:35 MDM - Abdominal Pain MDM Narrative Medical decision making narrative: 34-year-old male presents here with chief complaint of abdominal pain. Patient states he has a history of chronic pancreatitis due to alcoholism. He states he has not drank any alcohol since last week. Patient was seen here last month diagnosed with pancreatitis. He states he recently moved to the area from [place]. He has not been able to take his Nathen Pap because not been able to get a refill states he does not have a car transportation to do so. Patient is currently afebrile. He states he had a friend dropped him off here to the ER. CBC and CMP were reviewed. Patient's lipase is 130 compared to 440 that was previous. Patient is been given IV fluids he is CT scan is currently pending. Transition of care to Dr. Jamison CT return with findings of chronic pancreatitis and mild acute pancreatitis. Pain is down to 5-6/10. Patient resting comfortably and in no distress. Patient informed of the plan to treat with norco and zofran prn. Given prescription for Valentines 5/325 1-2 tid prn # 10 he is to follow up with a family doctor Lab Data Labs: Lab Results 08/31/24 08/31/24 Range/Units 20:55 21:50 WBC 8.7 (4.0-11.0) 10^3/uL RBC 4.31 L (4.70-6.10) 10^6/uL Hgb 13.5 L (14.0-18.0) g/dL Hct 40.1 L (42.0-54.0) % MCV 93.0 (80.0-94.0) fL MCH 31.3 (25.9-34.0) pg MCHC 33.7 (29.9-35.2) g/dL RDW 13.3 (11.0-15.0) % Plt Count 203 (150-450) 10^3/uL MPV 9.6 (9.5-13.5) fL Neut % (Auto) 59.9 (43.0-75.0) % Lymph % (Auto) 28.8 (20.5-60.0) % [place] % (Auto) 8.2 (1.7-12.0) % Eos % (Auto) 2.1 (0.9-7.0) % Baso % (Auto) 0.7 (0.2-2.0) % Neut # (Auto) 5.2 (1.4-6.5) 10^3/uL Lymph # (Auto) 2.5 (1.2-3.8) 10^3/uL [place] # (Auto) 0.7 (0.3-0.8) 10^3/uL Eos # (Auto) 0.2 (0.0-0.7) 10^3/uL Baso # (Auto) 0.1 (0.0-0.1) 10^3/uL Abs Immat Gran (auto) 0.03 (0.00-0.03) 10^3/uL Imm/Tot Granulo (auto) 0.3 (0.0-0.5) % Sodium 141 (136-145) mmol/L Potassium 4.0 (3.5-5.1) mmol/L Chloride 104 (98-107) mmol/L Carbon Dioxide 29.0 (21.0-32.0) mmol/L Anion Gap 12.0 BUN 10.0 (7.0-18.0) mg/dL Creatinine 0.88 (0.70-1.30) mg/dL Est GFR ( Amer) >60 (>=60 mL/min/1.73m^2) Est GFR (Non-Af Amer) >60 (>=60 mL/min/1.73m^2) BUN/Creatinine Ratio 11.4 Glucose 119 H (74-106) mg/dL Lactate 1.1 (0.4-2.0) mmol/L Calcium 9.1 (8.5-10.1) mg/dL Total Bilirubin 0.2 (0.2-1.0) mg/dL Direct Bilirubin 0.1 (0.0-0.2) mg/dL AST 27 (15-37) U/L ALT 32 (16-63) U/L Alkaline Phosphatase 86 (46-116) U/L Total Protein 7.1 (6.4-8.2) g/dL Albumin 3.4 (3.4-5.0) g/dL Globulin 3.7 g/dL Albumin/Globulin Ratio 0.9 Lipase 130.0 H (16.0-77.0) U/L Urine Color Lt. yellow (YELLOW) Urine Clarity Clear (CLEAR) Urine pH 6.5 (5.0-9.0) Ur Specific [place] 1.010 (1.005-1.025) Urine Protein Negative (NEG/TRACE) mg/dL Urine Glucose (UA) Negative (NEGATIVE) mg/dL Urine Ketones Negative (NEGATIVE) mg/dL Urine Occult Blood Negative (NEGATIVE) Urine Nitrite Negative (NEGATIVE) Urine Bilirubin Negative (NEGATIVE) Urine Urobilinogen 0.2 (0.2-1.0) EU/dL Ur Leukocyte Esterase Negative (NEGATIVE) Urine RBC None seen (0-2) #/HPF Urine WBC None seen (NONE SEEN) #/HPF Ur Squamous Epith Cells None seen (NONE/RARE) #/LPF Urine Crystals Seen A (None Seen) #/HPF Amorphous Sediment Many Urine Bacteria None seen (NONE SEEN) #/HPF Urine Casts None seen (NONE SEEN) #/LPF Urine Mucus Small A (NONE SEEN) Ur Culture Indicated? No Discharge Plan Discharge Chief Complaint: Abdominal Pain Clinical Impression: Pancreatitis Patient Disposition: Home, Self-Care Condition: Good Mode of Transportation: Private Vehicle Prescriptions / Home Meds: No Action Zenpep 40,000-126,000- 168,000 unit capsule,delayed release(DR/EC) 2 cap PO TID Rx Instructions: administer with meals and/or snacks polyethylene glycol 3350 [Miralax] 17 gram/dose powder 17 g PO DAILY Qty: 476 0RF dicyclomine 20 mg tablet 20 mg PO TID PRN (Reason: abdominal pain) Qty: 20 0RF Print Language: Emirati Instructions: Pancreatitis (ED) Referrals: Physician,Non-Staff, MD [Primary Care Provider] - 1 week Discharge Date/Time: 08/31/24 23:40
--- OUTSIDE RECORDS SUMMARY | 2024-08-31 20:57 | XMS_ITS | Encounter Summary ---
Author Organization [facility] tem Address [facility]-[id number] [address] [place] [address] Care Team Providers Care Purchasing Assistant Name Role Phone No Pcp, No Pcp Primary Care Provider Unavailabl e Encounter Details Date Type Department Care Team (Late st Contact Info) Description 11/24/2016 Documentation [facility] - [facility] [address] [place] [id number] Coral Jones, PROGRAM ANALYST-PBX SUPERVISOR [id number] [place] [address] Social History Tobacco Use Types Packs/Day Years [...] on filedocumented in this encounter Care Teams Purchasing Assistant Relationship Specialty Start Date End Date No Pcp, [place] [address] PCP - General Family Medicine 12/20/23 documented as of this encounter
--- OUTSIDE RECORDS SUMMARY | 2024-08-31 20:57 | XMS_ITS | Encounter Summary ---
Author Organization [facility] tem Address [id number] [address] [place] [address] Care Team Providers Care Unarmed Security Guard Name Role Phone No Pcp, No Pcp Primary Care Provider Unavailabl e Encounter Details Date Type Department Care Team (Late st Contact Info) Description 11/24/2016 Telephone [facility] - 8 MED-SURG/ORTHO [address] [place] [address] Coral Jones, JAVA USER INTERFACE DEVELOPER-ROLL BUCKER [address] [place] [address] Social History Tobacco Use Types Packs/Day Years [...] on filedocumented in this encounter Care Teams Unarmed Security Guard Relationship Specialty Start Date End Date No Pcp, [place] [address] PCP - General Family Medicine 12/20/23 documented as of this encounter
--- OUTSIDE RECORDS SUMMARY | 2024-08-31 20:57 | XMS_ITS | Clinical Summary ---
Author Organization [facility] Address [address], [address] [place] [address] Care Team Providers Care Kier Boiler Name Role Phone Baron Serrato Primary Care Provider [phone] Allergies Active Allergy Reactions Criticality Noted Date Comments Aspirin 05/10/2014 Unsure why he states mom told him to not take it Ibuprofen 12/21/2022 Ketorolac Other (See Comments) Low 12/22/2022 Medications Pancrelipase, Dis-Wssu-Ufhn, (ZENPEP) 71011-211751 units CPEP Take 2 capsules by mouth in the morning, at noon, and at bedtime 240 capsule 4 12/26/19 24 Active gabapentin (NEURONTIN) 100 MG capsuleIndicat ions:Alcoholis m ([facility]) Take 1 capsule by mouth 2 times [...] 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 ([facility]) Take 1 tablet by mouth daily 30 [...] Type Department Care Team Description 06/11/2024 Telephone [facility] Primary Care [address] [place] [address] Baron Serrato PA Medication Problem from Last 3 Months Immunizations Immunization Administration [...] drink = 0.6 oz pur e alcohol) [facility] [employer] Answer Date Recorded In the past 12 months has [employer], oil, or water Friend [employer] threatened to shut off services in your [...] any time in the past 12 [facility], were you homeless or living in a [place] health care facility (including now)? No 04/26/2024 Food Insecurity Answer [...] 05/24/2024 9:23 AM EDT Plan of Treatment Health Maintenance Due Date Last Done Comments Flu vaccine Discontinued 11/23/2016 Pneumococcal 0-49 years Vaccine Discontinued HIV screen Discontinued 09/19/2020 DTaP/Tdap/Td vaccine Discontinued 10/07/2023, 05/09/19 Hepatitis C screen Discontinued 10/30/2023, 09/19/2020 Depression Monitoring Discontinued 02/25/2024, 025 Medical Devices Implanted Type Area Bright Cutter Device Identifier Shelf Expiration Date Model / Serial / Lot Stent Pancreas 7fr L12cm Plas Str Ld Katarina Trailing Radpq - [id number] Implanted:Qty : 1 on 12/05/2023 by Scott Morales MD at [facility] Stent:Bi liary/Pa ncreatic /Iliac N/A: Pancreas [employer] [id number] 07/01/2024 [id number] 0 / / [id number] Stent Pancreas 7fr L7cm Plas Str Ld Katarina Trailing Radpq Mrk - [id number] Implanted:Qty : 1 on 12/05/2023 by Scott Morales MD at [facility] Stent:Bi liary/Pa ncreatic /Iliac N/A: Duodenum [employer] [id number] 01/20/2025 [id number] 0 / / [id number] Advanix Panc Stent Strt Lb 8yuy11xr - [id number] Implanted:Qty : 1 on 12/05/2023 by Scott Morales MD at [facility] Stent N/A: Pancreas [employer] [id number] 04/29/2024 [id number] 0 / / [id number] Stent Pancreas L7cm Od7fr Polymer Pgtl Ld Katarina Ld Radpq Mrk - [id number] Implanted:Qty : 1 on 10/17/2022 by Scott Morales MD at [facility] N/A: Other [employer] 12/20/2023 [id number] 0 / / [id number] Stent Pancreas 5fr L7cm 0.035in For Drn Obstructed Pancreas - [id number] Implanted:Qty : 1 on 10/17/2022 by Scott Morales MD at [facility] N/A: Other [employer] 10/30/2024 [id number] / / [id number] System Del 7fr Pancreas Naviflex Rx - [id number] Implanted:Qty : 2 on 01/22/2023 by Scott Morales MD at [facility] N/A: Pancreas [employer] 05/19/2024 [id number] 0 / / [id number] Stent Pancreas L9cm Od7fr Polymer Pgtl Ld Katarina Ld Radpq Mrk - [id number] Implanted:Qty : 1 on 01/22/2023 by Scott Morales MD at [facility] N/A: Pancreas [employer] 04/29/2024 [id number] 0 / / [id number] Stent Pancreas L7cm Od7fr Polymer Pgtl Ld Katarina Ld Radpq Mrk - [id number] Implanted:Qty : 1 on 01/22/2023 by Scott Morales MD at [facility] N/A: Pancreas [employer] 04/29/2024 [id number] 0 / / [id number] Stent Pancreas L7cm Od5fr Polymer Pgtl Ld Katarina Ld Radpq Mrk - [id number] Implanted:Qty : 1 on 01/22/2023 by Scott Morales MD at [facility] N/A: Pancreas [employer] 06/02/2024 [id number] / / [id number] Explanted Type Area Bright Cutter Device Identifier Shelf Expiration Date Model / Serial / Lot Kit Pancreas Stnt 5fr L7cm Plas Str No Ld Katarina Trailing - [id number] Explanted:Qty: 1 on 10/17/2022 at [facility] [employer] 12/08/2022 [id number] / / [id number] Description:Wrong size Procedures Procedure Name Priority Date/Time Associated Diagnosis Comments HEPATITIS PANEL, ACUTE STAT 10/30/2023 9:13 PM EDT HIV SCREEN Routine 09/19/2020 10:05 AM EDT Healthcare maintenance from Last 3 Months or Most Recently Relevant to Health Maintenance Results * Hepatitis Panel, Acute (10/30/2023 9:13 PM EDT) Hepatitis B Surface Ag NONREACTIVE NONREACTIVE 10/30/2023 9:13 PM EDT [facility] Hepatitis C Ab NONREACTIVE NONREACTIVE 10/30/19 9:13 PM EDT [facility] Comment: The hepatitis C procedure used in [...] IgM NONREACTIVE NONREACTIVE 10/11 9:13 PM EDT [facility] Hep A IgM NONREACTIVE NONREACTIVE 10/30/2023 9:13 PM EDT [facility] BLOOD SPECIMEN / Unknown 10/30/2023 9:13 PM EDT 10/30/2023 9:16 PM EDT us Amaury Hooks PA-C IMMUNOLOGY ORDER YAZAN Final Result [facility] [address] [place] [address], [facility] [phone] [place] [address], [facility] [phone] * HIV Screen (09/19/2020 10:05 AM EDT) Pathologist [facility] [place] HIV Ag/Ab NONREACTIVE NONREACTIVE 09/19/2020 10:05 AM EDT [facility] Comment: No laboratory evidence of HIV infection. If acute HIV infection is suspected, consider testing for HIV-1 RNA. BLOOD SPECIMEN / Unknown 09/19/2020 10:05 AM EDT 09/19/2020 10:21 AM EDT us Ganesh Datt IMMUNOLOGY ORDERABLES Final Resu lt [facility] [address] [place] [address], [facility] [phone] from Last 3 Months or Most Recently Relevant to Health Maintenance Insurance [employer] Member Subscriber Plan / Payer (Ef fective 2023-Present) Name:Christoph Jones Relation to Subscriber:Self Name:Christoph Jones Payer ID:Not on file Group ID:[id number] Type:Not on file Address: [place] [phone] [employer] Member Subscriber Plan / Payer (Ef fective 2023-Present) Name:Larry Jonesy Relation to Subscriber:Self Name:Christoph Jones Payer ID:Not on file Group ID:[id number] Type:Not on file Address: [place] [phone] [facility] Advance Directives * Full Code (Latest Code [...] 6:47 AM 12/07/2022 8:01 PM Care Teams Kier Boiler Relationship Specialty [place] [address] [facility] [place] [address] PCP - General Physician Chain Sales Representative 02/12/24
--- OUTSIDE RECORDS SUMMARY | 2024-08-31 20:57 | XMS_ITS | Clinical Summary ---
Author Organization [employer] tem Address [id number] [address] [place] [address] Care Team Providers Care Slackman Name Role Phone No Pcp, No Pcp Primary Care Provider Unavailabl e Allergies Active Allergy Reactions Criticality Noted Date Comments Aspirin 07/25/2016 Ibuprofen 12/21/2022 Ketorolac Flushing Low 12/22/2022 Medications pnppmg-cbrzzjeb-qhc lase 40,000-126,000- 168,000 unit capsule,delayed release(DR/EC) Take 80,000 Units by mouth in the morning and 80,000 Units at noon and 80,000 Units in the evening. Take with meals. 4 Active ondansetron ODT (ZOFRAN ODT) 4 mg disintegrating tablet Dissolve 1 tablet (4 mg total) on tongue 3 (three) times a day as needed for nausea for up to 3 doses. 3 tablet 5 Active Active Problems Problem Noted Date Diagnosed [...] abuse 09/24/2016 11/24/2016 Genital herpes simplex 11/16/201411/24 Encounters Date Type Department Care Team Description 07/28/2024 4:37 PM EDT - 07/28/2024 7:29 PM EDT Emergency [facility] - Emergency [address] [place] [address] Hilario Thomas MD Alcohol-induced chronic pancreatitis (CMS-HCC) (Primary Dx) Discharge Disposition: Home 07/28/2024 Travel from Last 3 Months Immunizations Immunization Administration [...] Average Number of Drinks Not on file 020 Frequency of Binge Drinking Not on [...] got money to buy more. Never True 07/28/2024 Within the past 12 months th e food we bought just didn't last and we didn't have money to get more. Never True 07/28/2024 Purpose - Life Answer Date Recorded Purpose and direction in life Unknown Sex and Gender Information Value Date Recorded Sex Assigned at Male 12/20/2023 12:02 PM EST Legal Sex Male 9:41 PM EDT Gender Identity Male 12/20/2023 12:02 PM EST Sexual Orientation Not on file Last Filed Vital Signs Vital Sign Reading Time Taken Comments Blood Pressure 156/102 07/28/2024 6:43 PM EDT Pulse 48 07/28/2024 6:43 PM EDT Temperature 36.9 C (98.4 F) 07/28/2024 4:13 PM EDT Respiratory Rate 20 07/28/2024 6:43 PM EDT Oxygen Saturation 100% 07/28/2024 6:43 PM EDT Inhaled Oxygen Concentration - - Weight 54.9 kg (121 lb) 07/28/2024 4:13 PM EDT Height 170.2 cm (5' 7 ) 07/28/2024 4:13 PM EDT Body Mass Index 18.95 07/28/2024 4:13 PM EDT Plan of Treatment Health Maintenance Due Date Last Done Comments Tobacco Counseling 1988 Depression Screening 12/22/2023 12/21/2022 Influenza Vaccine 10/11/2024 11/23/2016 Adult BMI Screening 07/28/2025 07/28/2024 Tobacco Screening 07/28/2025 07/28/2024 DTaP,Tdap and Td Vaccines (3 - Td [...] this time. Medical Devices Not on file Procedures Procedure Name Priority Date/Time Associated Diagnosis Comments LACTATE W/ REFLEX STAT 07/28/2024 4:3 6 PM EDT EXTRA TUBES BLUE TOP Routine 07/28/2024 4:35 PM EDT EXTRA TUBES Routine 07/28/2024 4:35 PM EDT ETHANOL STAT 07/28/2024 4:35 PM EDT LIPASE STAT 07/28/2024 4:35 PM EDT COMPREHENSIVE METABOLIC PANEL STAT 07/28/2024 4:35 PM EDT CBC WITH AUTO DIFFERENTIAL STAT 07/28/2024 4:35 PM EDT from Last 3 Months Results * Lactate w/ Reflex (07/28/2024 4:36 PM EDT) LACTATE W/REFLEX 0.8 0.4 - 2.0 mmol/L 07/28/2024 4:59 PM EDT [facility] Blood Venous blood / Unknown 07/28/2024 4:36 PM EDT 07/28/2024 4:41 PM EDT Narrative [facility] - 07/28/2024 4:59 PM EDT Result did not trigger repeat Lactate, re-order if needed. us Hilario Thomas MD LAB BLOOD ORDERABLES Final Resu lt Performing Organization Address City/[facility]/ZIP Co de Phone Number [address] [place] [address], [place] * Light Blue Top (07/28/2024 4:35 PM EDT) Extra Tube Auto Resulted 07/28/2024 6:02 PM EDT [facility] Blood Venous blood / Unknown 07/28/2024 4:35 PM EDT 07/28/2024 4:43 PM EDT Hilario Thomas MD LAB BLOOD ORDERABLES Final Resu lt Performing Organization Address [facility] Co de Phone Number [address] [place] [address], [place] * (ABNORMAL) CBC auto differential (07/28/2024 4:35 PM EDT) WBC 13.2(H) 4 - 11 x10E9/L 07/28/2024 4:51 PM EDT [facility] RBC Count 4.48 4.1 - 5.7 X10E12/L 07/28/2024 4:51 PM EDT [facility] Hemoglobin 13.6 13 - 17 g/dL 07/28/2024 4:51 PM EDT [facility] Hematocrit 40.4 39 - 50 % 07/28/2024 4:51 PM EDT [facility] MCV 90 80 - 100 fL 07/28/2024 4:51 PM EDT [facility] MCH 30.5 27 - 34 pg 07/28/2024 4:51 PM EDT [facility] MCHC 33.7 32 - 36 g/dL 07/28/2024 4:51 PM EDT [facility] RDW 13.4 11.5 - 15 % 07/28/2024 4:51 PM EDT [facility] Platelet Count 251 150 - 450 X10E9/L 07/28/2024 4:51 PM EDT [facility] MPV 7.6 7 - 12 fL 07/28/2024 4:51 PM EDT [facility] Neutrophils % 71.4 % 07/28/2024 4:51 PM EDT [facility] Lymphocytes % 20.0 % 07/28/2024 4:51 PM EDT [facility] Monocytes % 7.4 % 07/28/2024 4:51 PM EDT [facility] Eosinophils % 0.8 % 07/28/2024 4:51 PM EDT [facility] Basophils % 0.4 % 07/28/2024 4:51 PM EDT [facility] Neutrophils Absolute (A) 9.5(H) 1.5 - 6.6 10*3/uL 07/28/2024 4:51 PM EDT [facility] Lymphocytes Absolute 2.7 1.0 - 3.5 10*3/uL 07/28/2024 4:51 PM EDT [facility] Monocytes Absolute 1.0(H) 0.0 - 0.9 10*3/uL 07/28/2024 4:51 PM EDT [facility] Eosinophils Absolute 0.1 0.0 - 0.4 10*3/uL 07/28/2024 4:51 PM EDT [facility] Basophils Absolute 0.1 0.0 - 0.2 10*3/uL 07/28/2024 4:51 PM EDT [facility] Differential Type AUTOMATED DIFFERENTIAL 07/28/2024 4:51 PM EDT [facility] Blood Venous blood / Unknown 07/28/2024 4:35 PM EDT 07/28/2024 4:42 PM EDT us Hilario Thomas MD LAB BLOOD ORDERABLES Final Resu lt [address] [place] [address], [place] * (ABNORMAL) Lipase (07/28/2024 4:35 PM EDT) LIPASE 141(H) 17 - 40 U/L 07/28/2024 4:57 PM EDT [facility] Blood Venous blood / Unknown 07/28/2024 4:35 PM EDT 07/28/2024 4:42 PM EDT Hilario Thomas MD LAB BLOOD ORDERABLES Final Resu lt Performing Organization Address [facility] Co de Phone Number [address] [place] [address], [place] * Ethanol (07/28/2024 4:35 PM EDT) ETHANOL <0.010 <=0.080 g/dL 07/28/2024 5:00 PM EDT [facility] Comment: This report is intended for use in clinical monitoring or management of patients. Blood Venous blood / Unknown 07/28/2024 4:35 PM EDT 07/28/2024 4:42 PM EDT Hilario Thomas MD LAB BLOOD ORDERABLES Final Resu lt Performing Organization Address City/[facility] Co de Phone Number [address] [place] [address], [place] * (ABNORMAL) Comprehensive metabolic panel (07/28/2024 4:35 PM EDT) SODIUM 134 134 - 146 mmol/L 07/28/2024 5:00 PM EDT [facility] POTASSIUM 3.5 3.5 - 5.0 mmol/L 07/28/2024 5:00 PM EDT [facility] CHLORIDE 105 98 - 109 mmol/L 07/28/2024 5:00 PM EDT [facility] CARBON DIOXIDE 24 22 - 32 mmol/L 07/28/2024 5:00 PM EDT [facility] ANION GAP 5 5 - 15 mmol/L 07/28/2024 5:00 PM EDT [facility] BLOOD UREA NITROGEN 11 5 - 23 mg/dL 07/28/2024 5:00 PM EDT [facility] CREATININE 0.86 0.70 - 1.20 mg/dL 07/28/2024 5:00 PM EDT [facility] Comment:METHOD TRACEABLE TO IDMS STANDARD GLUCOSE 120(H) 65 - 99 mg/dL 07/28/2024 5:00 PM EDT [facility] CALCIUM 8.7 8.5 - 10.5 mg/dL 07/28/2024 5:00 PM EDT [facility] TOTAL PROTEIN 7.3 6.0 - 8.0 g/dL 07/28/2024 5:00 PM EDT [facility] ALBUMIN 4.2 3.2 - 5.3 g/dL 07/28/2024 5:00 PM EDT [facility] ALKALINE PHOSPHATASE 75 39 - 130 U/L 07/28/2024 5:00 PM EDT [facility] AST 25 <=41 U/L 07/28/2024 5:00 PM EDT [facility] ALT 24 <=40 U/L 07/28/2024 5:00 PM EDT [facility] BILIRUBIN,TOTAL 0.8 0.3 - 1.2 mg/dL 07/28/2024 5:00 PM EDT [facility] EGFR Non-Race Dependent >90 >=60 ml/min/1.7 3sq.m 07/28/2024 5:00 PM EDT [facility] Comment: eGFR not reported due to non-numeric value for Creatinine. Reported eGFR is based on the CKD-EPI 2020 equation that does not use a race coefficient. Blood Venous blood / Unknown 07/28/2024 4:35 PM EDT 07/28/2024 4:42 PM EDT us Hilario Thomas MD LAB BLOOD ORDERABLES Final Resu lt [facility] [address] [place] [address], [place] from Last 3 Months Insurance [employer] Advance Directives * Full Code (Latest Code [...] 5:42 PM 09/24/2016 7:47 PM Care Teams Slackman Relationship Specialty Start Date End Date No Pcp, [place] [address] PCP - General Family Medicine 12/20/23
--- OUTSIDE RECORDS SUMMARY | 2024-08-31 20:57 | XMS_ITS | Encounter Summary ---
Author Organization [facility] Address [address], [address] [place] [address] Care Team Providers Care Water Filterer Name Role Phone Baron Serrato Primary Care Provider [phone] Reason for Visit * Reason Comments Medication Refill Encounter Details Date Type Department Care Team (Late st Contact Info) Description [facility] [facility] [address] [place] [address] [address] [place] [address] Lucio Gauthier MD [facility] [employer] [place] [phone] Medication Refill Social History Tobacco Use Types [...] Time COVID-19 (Rule Out) 11/05/2022 11/05/2022 11/06/19 23 2:11 AM EDT documented as of this encounter Care Teams Water Filterer Relationship Specialty [place] [address] [place] [address] PCP - General Physician Import And Export Clerk 02/12/24 documented as of this encounter
[2024-08-31] MEDS: MORPHINE SULFATE 2 MG/ML SYRINGE IV ×2 (21:04→22:07)
[2024-08-31 21:06] LABS: Hematocrit 40.1 % (42.0-54.0); Hemoglobin 13.5 g/dL (14.0-18.0); Immature Granulocytes Abs Auto 0.03 10^3/uL (0.00-0.03); Immature Granulocytes Pct Auto 0.3 % (0.0-0.5); Lymphocytes Absolute Auto 2.5 10^3/uL (1.2-3.8); Mean Corpuscular HGB Conc 33.7 g/dL (29.9-35.2); Mean Corpuscular Hemoglobin 31.3 pg (25.9-34.0); Mean Corpuscular Volume 93.0 fL (80.0-94.0); Platelet Count 203 10^3/uL (150-450); Red Blood Count 4.31 10^6/uL (4.70-6.10); White Blood Count 8.7 10^3/uL (4.0-11.0)
[2024-08-31 21:23] LABS: Alanine Aminotransferase 32 U/L (16-63); Albumin Globulin Ratio 0.9; Albumin Level 3.4 g/dL (3.4-5.0); Alkaline Phosphatase 86 U/L (46-116); Anion Gap 12.0; Aspartate Amino Transferase 27 U/L (15-37); Blood Urea Nitrogen 10.0 mg/dL (7.0-18.0); Calcium 9.1 mg/dL (8.5-10.1); Carbon Dioxide 29.0 mmol/L (21.0-32.0); Chloride 104 mmol/L (98-107); Estimated GFR (African America >60 (>=60 mL/min/1.73m^2); Estimated GFR (Non-African Ame >60 (>=60 mL/min/1.73m^2); Globulin 3.7 g/dL; Glucose 119 mg/dL (74-106); Potassium 4.0 mmol/L (3.5-5.1); Sodium 141 mmol/L (136-145); Total Protein 7.1 g/dL (6.4-8.2)
[2024-08-31 21:28] LABS: Lactate/Lactic Acid 1.1 mmol/L (0.4-2.0)
[2024-08-31 21:45] LABS: Lipase 130.0 U/L (16.0-77.0)
[2024-08-31 21:58] LABS: Glucose Urine UA NEGATIVE (NEGATIVE)
[2024-08-31 22:05] LABS: Cast Seen? NONE SEEN #/LPF (NONE SEEN); Crystals Seen? Seen #/HPF (None Seen); Urine Culture Indicated NO
[2024-08-31 22:15] VITALS: BP 146/90; PULSE 62; O2SAT 97
[2024-08-31] MEDS: PROMETHAZINE HCL 12.5 MG in 0.9 % SODIUM CHLORIDE 50 ML 202 MG IV (22:18)
[2024-08-31] MEDS: HYDROCODONE/ACET 5-325 MG TABLET 2 TAB PO (23:30)
[2024-08-31 23:35] VITALS: BP 139/81; PULSE 51; TEMP 36.8; O2SAT 99
== END 2024-08-31 23:40 | disposition home or self-care (01) ==
PROVIDERS: Physician Assistant; Emergency Provider Internal Medicine
DX: K86.0 Alcohol-induced chronic pancreatitis (principal)
CPT/HCPCS: 36415; 74177; 80053; 80076; 81001; 83605; 83690; 85025; 96365; 96375; 96376; 99285; J2270; J2405; J2550; Q9967

== ENCOUNTER 2024-09-10 17:06 | Emergency (ER) | payer OTHER, SELFPAY ==
[2024-09-10 17:14] VITALS: BP 137/87; PULSE 82; TEMP 36.9; O2SAT 100; BMI 18.8
--- OUTSIDE RECORDS SUMMARY | 2024-09-10 17:25 | XMS_ITS | Encounter Summary ---
Author Organization [facility] Address [address] [place] [address] Care Team Providers Care Home Health Aide Name Role Phone Baron Serrato Primary Care Provider [phone] Reason for Visit * Reason Comments Medication Refill Encounter Details Date Type Department Care Team (Late st Contact Info) Description 10/14/2020 [facility] [address] [place] [address] [address] [place] [address] Lucio Gauthier MD [facility] [employer] [place] [phone] Medication Refill Social History Tobacco Use Types [...] documented as of this encounter Care Teams Home Health Aide Relationship Specialty [place] [address] [place] [address] PCP - General Physician Machine Plate Stacker 02/12/24 documented as of this encounter
--- OUTSIDE RECORDS SUMMARY | 2024-09-10 17:25 | XMS_ITS | Encounter Summary ---
Author Organization [facility] tem Address [facility] [place] [address] [place] [address] Care Team Providers Care Multi Media Specialist Name Role Phone No Pcp, No Pcp Primary Care Provider Unavailabl e Encounter Details Date Type Department Care Team (Late st Contact Info) Description 11/24/2016 Documentation [facility] - 8 MED-SURG/ORTHO [address] [place] [id number] Coarl Jones, COMMUNITY HEALTH NAVIGATOR-HOUSING DIRECTOR [address] [place] [address] Social History Tobacco Use Types Packs/Day Years [...] on filedocumented in this encounter Care Teams Multi Media Specialist Relationship Specialty Start Date End Date No Pcp, [place] [address] PCP - General Family Medicine 12/20/23 documented as of this encounter
--- OUTSIDE RECORDS SUMMARY | 2024-09-10 17:25 | XMS_ITS | Clinical Summary ---
Author Organization [facility] tem Address [id number] [address] [place] [address] Care Team Providers Care Team Psychologist Name Role Phone No Pcp, No Pcp Primary Care Provider Unavailabl e Allergies Active Allergy Reactions Criticality Noted Date Comments Aspirin 07/25/2016 Ibuprofen 12/21/2022 Ketorolac Flushing Low 12/22/2022 Medications wvbyaj-ccjaqdfx-gkw lase 40,000-126,000- 168,000 unit capsule,delayed release(DR/EC) Take [...] EDT - 07/28/2024 7:29 PM EDT Emergency [facility] - Emergency [address] [place] [address] Hilario Thomas MD Alcohol-induced chronic pancreatitis (CMS-HCC) [...] - 2.0 mmol/L 07/28/2024 4:59 PM EDT [facility] Blood Venous blood / Unknown 07/28/2024 4:36 PM EDT 07/28/2024 4:41 PM EDT Narrative [facility] - 07/28/2024 4:59 PM EDT Result did not trigger repeat Lactate, re-order if needed. us Hilario Thomas MD LAB BLOOD ORDERABLES Final Resu lt Performing Organization Address City/[facility]/ZIP Co de Phone Number [address] [place] [address], [place] * Light Blue Top (07/28/2024 4:35 PM EDT) Extra Tube Auto Resulted 07/28/2024 6:02 PM EDT [facility] Blood Venous blood / Unknown 07/28/2024 4:35 PM EDT 07/28/2024 4:43 PM EDT Hilario Thomas MD LAB BLOOD ORDERABLES Final Resu lt Performing Organization Address [facility] Co de Phone Number [address] [place] [address], [place] * (ABNORMAL) CBC auto differential (07/28/2024 4:35 PM EDT) WBC 13.2(H) 4 - 11 x10E9/L 07/28/2024 4:51 PM EDT [facility] RBC Count 4.48 4.1 - 5.7 X10E12/L 07/28/2024 4:51 PM EDT [facility] Hemoglobin 13.6 13 - 17 g/dL 07/28/2024 4:51 PM EDT [facility] Hematocrit 40.4 39 - 50 % 07/28/2024 4:51 PM EDT [facility] MCV 90 80 - 100 fL 07/28/2024 4:51 PM EDT [facility] MCH 30.5 27 - 34 pg 07/28/2024 4:51 PM EDT [facility] MCHC 33.7 32 - 36 g/dL 07/28/2024 4:51 PM EDT [facility] RDW 13.4 11.5 - 15 % 07/28/2024 4:51 PM EDT [facility] Platelet Count 251 150 - 450 X10E9/L 07/28/2024 4:51 PM EDT [facility] MPV 7.6 7 - 12 fL 07/28/2024 4:51 PM EDT [facility] Neutrophils % 71.4 % 07/28/2024 4:51 PM EDT [facility] Lymphocytes % 20.0 % 07/28/2024 4:51 PM EDT [facility] Monocytes % 7.4 % 07/28/2024 4:51 PM EDT [facility] Eosinophils % 0.8 % 07/28/2024 4:51 PM EDT [facility] Basophils % 0.4 % 07/28/2024 4:51 PM EDT [facility] Neutrophils Absolute (A) 9.5(H) 1.5 - 6.6 10*3/uL 07/28/2024 4:51 PM EDT [facility] Lymphocytes Absolute 2.7 1.0 - 3.5 10*3/uL 07/28/2024 4:51 PM EDT [facility] Monocytes Absolute 1.0(H) 0.0 - 0.9 10*3/uL 07/28/2024 4:51 PM EDT [facility] Eosinophils Absolute 0.1 0.0 - 0.4 10*3/uL 07/28/2024 4:51 PM EDT [facility] Basophils Absolute 0.1 0.0 - 0.2 10*3/uL 07/28/2024 4:51 PM EDT [facility] Differential Type AUTOMATED DIFFERENTIAL 07/28/2024 4:51 PM EDT [facility] Blood Venous blood / Unknown 07/28/2024 4:35 PM EDT 07/28/2024 4:42 PM EDT us Hilario Thomas MD LAB BLOOD ORDERABLES Final Resu lt [address] [place] [address], [place] * (ABNORMAL) Lipase (07/28/2024 4:35 PM EDT) LIPASE 141(H) 17 - 40 U/L 07/28/2024 4:57 PM EDT [facility] Blood Venous blood / Unknown 07/28/2024 4:35 PM EDT 07/28/2024 4:42 PM EDT Hilario Thomas MD LAB BLOOD ORDERABLES Final Resu lt Performing Organization Address [facility] Co de Phone Number [address] [place] [address], [place] * Ethanol (07/28/2024 4:35 PM EDT) ETHANOL <0.010 <=0.080 g/dL 07/28/2024 5:00 PM EDT [facility] Comment: This report is intended for use in clinical monitoring or management of patients. Blood Venous blood / Unknown 07/28/2024 4:35 PM EDT 07/28/2024 4:42 PM EDT Hilario Thomas MD LAB BLOOD ORDERABLES Final Resu lt Performing Organization Address City/[facility] Co de Phone Number [address] [place] [address], [place] * (ABNORMAL) Comprehensive metabolic panel (07/28/2024 4:35 PM EDT) SODIUM 134 134 - 146 mmol/L 07/28/2024 5:00 PM EDT [facility] POTASSIUM 3.5 3.5 - 5.0 mmol/L 07/28/2024 5:00 PM EDT [facility] CHLORIDE 105 98 - 109 mmol/L 07/28/2024 5:00 PM EDT [facility] CARBON DIOXIDE 24 22 - 32 mmol/L 07/28/2024 5:00 PM EDT [facility] ANION GAP 5 5 - 15 mmol/L 07/28/2024 5:00 PM EDT [facility] BLOOD UREA NITROGEN 11 5 - 23 mg/dL 07/28/2024 5:00 PM EDT [facility] CREATININE 0.86 0.70 - 1.20 mg/dL 07/28/2024 5:00 PM EDT [facility] Comment:METHOD TRACEABLE TO IDMS STANDARD GLUCOSE 120(H) 65 - 99 mg/dL 07/28/2024 5:00 PM EDT [facility] CALCIUM 8.7 8.5 - 10.5 mg/dL 07/28/2024 5:00 PM EDT [facility] TOTAL PROTEIN 7.3 6.0 - 8.0 g/dL 07/28/2024 5:00 PM EDT [facility] ALBUMIN 4.2 3.2 - 5.3 g/dL 07/28/2024 5:00 PM EDT [facility] ALKALINE PHOSPHATASE 75 39 - 130 U/L 07/28/2024 5:00 PM EDT [facility] AST 25 <=41 U/L 07/28/2024 5:00 PM EDT [facility] ALT 24 <=40 U/L 07/28/2024 5:00 PM EDT [facility] BILIRUBIN,TOTAL 0.8 0.3 - 1.2 mg/dL 07/28/2024 5:00 PM EDT [facility] EGFR Non-Race Dependent >90 >=60 ml/min/1.7 3sq.m 07/28/2024 5:00 PM EDT [facility] Comment: eGFR not reported due to non-numeric value for Creatinine. Reported eGFR is based on the CKD-EPI 2020 equation that does not use a race coefficient. Blood Venous blood / Unknown 07/28/2024 4:35 PM EDT 07/28/2024 4:42 PM EDT us Hilario Thomas MD LAB BLOOD ORDERABLES Final Resu lt [facility] [address] [place] [address], [place] from Last 3 Months Insurance [employer] [...] 5:42 PM 09/24/2016 7:47 PM Care Teams Team Psychologist Relationship Specialty Start Date End Date No Pcp, [place] [address] PCP - General Family Medicine 12/20/23
--- OUTSIDE RECORDS SUMMARY | 2024-09-10 17:25 | XMS_ITS | Clinical Summary ---
Author Organization [facility] Address [address], [address] [place] [address] Care Team Providers Care Catcher Helper Name Role Phone Baron Serrato Primary Care Provider [phone] Allergies Active Allergy Reactions Criticality Noted Date Comments Aspirin 05/10/2014 Unsure why he states mom told him to not take it Ibuprofen 12/21/2022 Ketorolac Other (See Comments) Low 12/22/2022 Medications Pancrelipase, Ier-Jfit-Qtgv, (ZENPEP) 44775-967434 units CPEP Take 2 capsules by mouth in the morning, at noon, and at bedtime 240 capsule 4 12/26/19 24 Active gabapentin (NEURONTIN) 100 MG capsuleIndicat ions:Alcoholis m ([facility]) Take 1 capsule by mouth 2 [...] 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 ([facility]) Take 1 tablet by mouth daily [...] Type Department Care Team Description 06/11/2024 Telephone [facility] Primary Care [address] [place] [address] Baron Serrato PA Medication Problem [...] drink = 0.6 oz pur e alcohol) [facility] [employer] Answer Date Recorded In the past 12 months has [employer] oil, or water [employer] threatened to shut off services in your [...] any time in the past 12 m [facility], were you homeless or living in [...] 02/25/2024, 025 Medical Devices Implanted Type Area Magnetic Resonance Imaging Director Device Identifier Shelf Expiration Date Model / Serial / Lot Stent Pancreas 7fr L12cm Plas Str Ld Katarina Trailing Radpq - [id number] Implanted:Qty : 1 on 12/05/2023 by Scott Morales MD at [facility] Stent:Bi liary/Pa ncreatic /Iliac N/A: Pancreas [employer] [id number] 07/01/2024 [id number] / / [id number] Stent Pancreas 7fr L7cm Plas Str Ld Katarina Trailing Radpq Mrk - [id number] Implanted:Qty : 1 on 12/05/2023 by Scott Morales MD at [facility] Stent:Bi liary/Pa ncreatic /Iliac N/A: Duodenum [employer] [id number] 01/20/2025 [id number] / / [id number] Advanix Panc Stent Strt Lb 3ciu63cz - [id number] Implanted:Qty : 1 on 12/05/2023 by Scott Morales MD at [facility] Stent N/A: Pancreas [employer] [id number] 04/29/2024 [id number] / / [id number] Stent Pancreas L7cm Od7fr Polymer Pgtl Ld Katarina Ld Radpq Mrk - [id number] Implanted:Qty : 1 on 10/17/2022 by Scott Morales MD at [facility] N/A: Other [employer] 12/20/2023 [id number] / / [id number] Stent Pancreas 5fr L7cm 0.035in For Drn Obstructed Pancreas - [id number] Implanted:Qty : 1 on 10/17/2022 by Scott Morales MD at [facility] N/A: Other [employer] 10/30/2024 [id number] / / [id number] System Del 7fr Pancreas Naviflex Rx - [id number] Implanted:Qty : 2 on 01/22/2023 by Scott Morales MD at [facility] N/A: Pancreas [employer] 05/19/2024 [id number] / / [id number] Stent Pancreas L9cm Od7fr Polymer Pgtl Ld Katarina Ld Radpq Mrk - [id number] Implanted:Qty : 1 on 01/22/2023 by Scott Morales MD at [facility] N/A: Pancreas [employer] 04/29/2024 [id number] / / [id number] Stent Pancreas L7cm Od7fr Polymer Pgtl Ld Katarina Ld Radpq Mrk - [id number] Implanted:Qty : 1 on 01/22/2023 by Scott Morales MD at [facility] N/A: Pancreas [employer] 04/29/2024 [id number] / / [id number] Stent Pancreas L7cm Od5fr Polymer Pgtl Ld Katarina Ld Radpq Mrk - [id number] Implanted:Qty : 1 on 01/22/2023 by Scott Morales MD at [facility] N/A: Pancreas [employer] 06/02/2024 [id number] / / [id number] Explanted Type Area Magnetic Resonance Imaging Director Device Identifier Shelf Expiration Date Model / Serial / Lot Kit Pancreas Stnt 5fr L7cm Plas Str No Ld Katarina Trailing - [id number] Explanted:Qty: 1 on 10/17/2022 at [facility] [employer] 12/08/2022 [id number] / / [id number] Description:Wrong size Procedures Procedure Name Priority Date/Time Associated Diagnosis Comments HEPATITIS PANEL, ACUTE STAT 10/30/2023 9:13 PM EDT HIV SCREEN Routine 09/19/2020 10:05 AM EDT Healthcare maintenance from Last 3 Months or Most Recently Relevant to Health Maintenance Results * Hepatitis Panel, Acute (10/30/2023 9:13 PM EDT) Hepatitis B Surface Ag NONREACTIVE NONREACTIVE 10/30/2023 9:13 PM EDT [facility] [employer] Hepatitis C Ab NONREACTIVE NONREACTIVE 10/30/19 9:13 PM EDT [facility] [employer] Comment: The hepatitis C procedure used in [...] IgM NONREACTIVE NONREACTIVE 10/11 9:13 PM EDT [facility] [employer] Hep A IgM NONREACTIVE NONREACTIVE 10/30/2023 9:13 PM EDT [facility] [employer] BLOOD SPECIMEN / Unknown 10/30/2023 9:13 PM EDT 10/30/2023 9:16 PM EDT us Amaury Hooks PA-C IMMUNOLOGY ORDER YAZAN Final Result [facility] [address] [place] [address], [facility] [phone] [place] [address], [facility] [phone] * HIV Screen (09/19/2020 10:05 AM EDT) Pathologist [facility] HIV Ag/Ab NONREACTIVE NONREACTIVE 09/19/2020 10:05 AM EDT [facility] Comment: No laboratory evidence of HIV infection. If acute HIV infection is suspected, consider testing for HIV-1 RNA. BLOOD SPECIMEN / Unknown 09/19/2020 10:05 AM EDT 09/19/2020 10:21 AM EDT us Ganesh Datt IMMUNOLOGY ORDERABLES Final Resu lt [facility] [address] [place] [address], [facility] [phone] from Last 3 Months or Most Recently Relevant to Health Maintenance Insurance [employer] Member Subscriber Plan / Payer (Ef fective 2023-Present) Name:Christoph Jones Relation to Subscriber:Self Name:Christoph Jones Payer ID:Not on file Group ID:[id number] Type:Not on file Address: [place] [phone] [employer] Member Subscriber Plan / Payer (Ef fective 2023-Present) Name:Larry Jonesy Relation to Subscriber:Self Name:Christoph Jones Payer ID:Not on file Group ID:[id number] Type:Not on file Address: [place] [phone] [facility] Advance Directives * Full Code (Latest Code [...] 6:47 AM 12/07/2022 8:01 PM Care Teams Catcher Helper Relationship Specialty [place] [address] [address] [place] [address] PCP - General Physician Hostel Manager 02/12/24
--- OUTSIDE RECORDS SUMMARY | 2024-09-10 17:25 | XMS_ITS | Encounter Summary ---
Author Organization [facility] tem Address [id number] [address] [place] [address] Care Team Providers Care Electrical Engineering Teacher Name Role Phone No Pcp, No Pcp Primary Care Provider Unavailabl e Encounter Details Date Type Department Care Team (Late st Contact Info) Description 11/24/2016 Telephone [facility] - 8 [facility]TH[facility] [address] [place] [address] Coral Jones, VICE CHAIRMAN-DATE NIGHT SITTER [address] [place] [address] Social History Tobacco Use Types Packs/Day Years [...] on filedocumented in this encounter Care Teams Electrical Engineering Teacher Relationship Specialty Start Date End Date No Pcp, [place] [address] PCP - General Family Medicine 12/20/23 documented as of this encounter
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
[2024-09-10] MEDS: DIPHTH,PERTUSS(ACELL),TET VAC 0.5 ML SYRINGE IM (18:00)
== END 2024-09-10 18:50 | disposition home or self-care (01) ==
PROVIDERS: Emergency Provider Emergency Medicine
DX: S06.0XAA Concussion with loss of consciousness status unknown, initial encounter (principal); S80.212A Abrasion, left knee, initial encounter; S80.211A Abrasion, right knee, initial encounter; V28.99XA Unspecified rider of other motorcycle injured in noncollision transport accident in traffic accident, initial encounter; Z23 Encounter for immunization
CPT/HCPCS: 70450; 72125; 73562; 90471; 99285

== ENCOUNTER 2024-10-04 10:12 | Emergency (ER) | payer OTHER, SELFPAY ==
[2024-10-04] VITALS (18 sets, daily range): BP systolic 143–173; BP diastolic 90–113; PULSE 55–96; TEMP 36.8–36.9; O2SAT 96–99; BMI 19.3
--- NOTE | 2024-10-04 10:22 | ECG_ITS ---
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
--- OUTSIDE RECORDS SUMMARY | 2024-10-04 10:31 | XMS_ITS | Clinical Summary ---
Author Organization [facility] Address [address], [address] [place] [address] Care Team Providers Care Eligibility Counselor Name Role Phone Baron Serrato Primary Care Provider [phone] Allergies Active Allergy Reactions Criticality Noted Date Comments Aspirin 05/10/2014 Unsure why he states mom told him to not take it Ibuprofen 12/21/2022 Ketorolac Other (See Comments) Low 12/22/2022 Medications Pancrelipase, Tiy-Shxj-Djww, (ZENPEP) 06093-934796 units CPEP Take 2 capsules by mouth in the morning, at noon, and at bedtime 240 capsule 4 12/26/19 24 Active gabapentin (NEURONTIN) 100 MG capsuleIndicat ions:[place] m ([facility]) Take 1 capsule by mouth 2 [...] 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 No 04/26/2024 Food Insecurity Answer [...] Discontinued 11/23/2016 Pneumococcal 0-49 years Vaccine Discontinued 1 HIV screen Discontinued 09/19/2020 DTaP/Tdap/Td vaccine Discontinued 10/07/2023, 03/29/20 21 Hepatitis C screen Discontinued 10/30/2023, 09/19/2020 Depression Monitoring Discontinued 02/25/2024, 025 Medical Devices Implanted Type Area Nutrition Internship Device Identifier Shelf Expiration Date Model / Serial / Lot Stent Pancreas 7fr L12cm Plas Str Ld Katarina Trailing Radpq - [id number] Implanted:Qty : 1 on 12/05/2023 by Scott Morales MD at [facility] Stent:Bi liary/Pa ncreatic /Iliac N/A: Pancreas [employer]- [id number] 07/01/2024 [id number] / / [id number] Stent Pancreas 7fr L7cm Plas Str Ld Katarina Trailing Radpq Mrk - [id number] Implanted:Qty : 1 on 12/05/2023 by Scott Morales MD at [facility] Stent:Bi liary/Pa ncreatic /Iliac N/A: Duodenum [employer]- [id number] 01/20/2025 [id number] 0 / / [id number] Advanix Panc Stent Strt Lb 5lbr31oe - [id number] Implanted:Qty : 1 on 12/05/2023 by Scott Morales MD at [facility] Stent N/A: Pancreas [employer]- [id number] 04/29/2024 [id number] 0 / / [id number] Stent Pancreas L7cm Od7fr Polymer Pgtl Ld Katarina Ld Radpq Mrk - [id number] Implanted:Qty : 1 on 10/17/2022 by Scott Morales MD at [facility] N/A: Other [employer]- 12/20/2023 [id number] / / [id number] Stent Pancreas 5fr L7cm 0.035in For Drn Obstructed Pancreas - [id number] Implanted:Qty : 1 on 10/17/2022 by Scott Morales MD at [facility] N/A: Other [employer]-WD 10/30/2024 [id number] / / [id number] System Del 7fr Pancreas [employer] Rx - [id number] Implanted:Qty : 2 on 01/22/2023 by Scott Morales MD at [facility] N/A: Pancreas [employer]-WD 05/19/2024 [id number] 0 / / [id number] Stent Pancreas L9cm Od7fr Polymer Pgtl Ld Katarina Ld Radpq Mrk - [id number] Implanted:Qty : 1 on 01/22/2023 by Scott Morales MD at [facility] N/A: Pancreas [employer]WD 04/29/2024 [id number] / / [id number] Stent Pancreas L7cm Od7fr Polymer Pgtl Ld Katarina Ld Radpq Mrk - [id number] Implanted:Qty : 1 on 01/22/2023 by Scott Morales MD at [facility] N/A: Pancreas [employer]WD 04/29/2024 [id number] / / [id number] Stent Pancreas L7cm Od5fr Polymer Pgtl Ld Katarina Ld Radpq Mrk - [id number] Implanted:Qty : 1 on 01/22/2023 by Scott Morales MD at [facility] N/A: Pancreas [employer]WD 06/02/2024 [id number] / / [id number] Explanted Type Area Nutrition Internship Device Identifier Shelf Expiration Date Model / Serial / Lot Kit Pancreas Stnt 5fr L7cm Plas Str No Ld Katarina Trailing - [id number] Explanted:Qty: 1 on 10/17/2022 at [facility] [employer]-WD 12/08/2022 [id number] / / [id number] Description:Wrong size Procedures Procedure Name Priority Date/Time Associated Diagnosis Comments HEPATITIS PANEL, ACUTE STAT 10/30/2023 9:13 PM EDT HIV SCREEN Routine 09/19/2020 10:05 AM EDT Healthcare maintenance from Last 3 Months or Most Recently Relevant to Health Maintenance Results * Hepatitis Panel, Acute (10/30/2023 9:13 PM EDT) Hepatitis B Surface Ag NONREACTIVE NONREACTIVE 10/30/2023 9:13 PM EDT [employer] Hepatitis C Ab NONREACTIVE NONREACTIVE 10/30/19 24 9:13 PM EDT [employer] Comment: The hepatitis C procedure used in [...] IgM NONREACTIVE NONREACTIVE 10/11 9:13 PM EDT [employer] Hep A IgM NONREACTIVE NONREACTIVE 10/30/2023 9:13 PM EDT [employer] BLOOD SPECIMEN / Unknown 10/30/2023 9:13 PM EDT 10/30/2023 9:16 PM EDT Amaury Hooks PA-C IMMUNOLOGY ORDER YAZAN Final Result Performing Organization Address City/[facility]/ZIP Co de Phone Number [facility] [address] [place] [address], [facility] [phone] [facility] [address] [place] [address], [facility] [phone] * HIV Screen (09/19/2020 10:05 AM EDT) Pathologist [facility] HIV Ag/Ab NONREACTIVE NONREACTIVE 09/19/2020 10:05 AM EDT [employer] Comment: No laboratory evidence of HIV infection. If acute HIV infection is suspected, consider testing for HIV-1 RNA. BLOOD SPECIMEN / Unknown 09/19/2020 10:05 AM EDT 09/19/2020 10:21 AM EDT Ganesh Datt IMMUNOLOGY ORDERABLES Final Resu lt Performing Organization Address City/[facility]/ZIP Co de Phone Number [facility] [employer] [address] [place] [address], [facility] [phone] from Last 3 Months or Most Recently Relevant to Health Maintenance Insurance [facility] Member Subscriber Plan / Payer (Ef fective 2023-Present) Name:Christoph Jones Relation to Subscriber:Self Name:Christoph Jones Payer ID:[id number] (NAIC) Group ID:[id number] Type:Not on file Address: [place] [phone] [facility] Advance Directives * Full Code (Latest Code [...] 6:47 AM 12/07/2022 8:01 PM Care Teams Eligibility Counselor Relationship Specialty [place] [address] [place] [address] PCP - General Physician President Financial Institution 02/12/24
--- OUTSIDE RECORDS SUMMARY | 2024-10-04 10:31 | XMS_ITS | Encounter Summary ---
Author Organization [facility] tem Address [id number] [address] [place] [address] Care Team Providers Care Towing Pilot Name Role Phone No Pcp, No Pcp Primary Care Provider Unavailabl e Encounter Details Date Type Department Care Team (Late st Contact Info) Description 11/24/2016 Documentation [facility] - 8 MED-SURG/ORTHO [address] [place] [id number] Coral Jones, PROJECT CONTROL ANALYST-LABORATORY MACHINIST [address] [place] [address] Social History Tobacco Use Types Packs/Day Years [...] on filedocumented in this encounter Care Teams Towing Pilot Relationship Specialty Start Date End Date No Pcp, [place] [address] PCP - General Family Medicine 12/20/23 documented as of this encounter
--- OUTSIDE RECORDS SUMMARY | 2024-10-04 10:31 | XMS_ITS | Clinical Summary ---
Author Organization [facility] tem Address [id number] [place] [address] Care Team Providers Care Cable Layer Name Role Phone No Pcp, No Pcp Primary Care Provider Unavailabl e Allergies Active Allergy Reactions Criticality Noted Date Comments Aspirin 07/25/2016 Ibuprofen 12/21/2022 Ketorolac Flushing Low 12/22/2022 Medications usgquw-orugijaf-geo lase 40,000-126,000- 168,000 unit capsule,delayed release(DR/EC) Take [...] Inc - Emergency [address] [place] [address] Hilario Thomas MD Alcohol-induced chronic pancreatitis (CMS-HCC) [...] - 2.0 mmol/L 07/28/2024 4:59 PM EDT [facility] Blood Venous blood / Unknown 07/28/2024 4:36 PM EDT 07/28/2024 4:41 PM EDT Narrative [facility] - 07/28/2024 4:59 PM EDT Result did not trigger repeat Lactate, re-order if needed. us Hilario Thomas MD LAB BLOOD ORDERABLES Final Resu lt Performing Organization Address City/[facility]/ZIP Co de Phone Number [address] [place] [address], [place] * Light Blue Top (07/28/2024 4:35 PM EDT) Extra Tube Auto Resulted 07/28/2024 6:02 PM EDT [facility] Blood Venous blood / Unknown 07/28/2024 4:35 PM EDT 07/28/2024 4:43 PM EDT Hilario Thomas MD LAB BLOOD ORDERABLES Final Resu lt Performing Organization Address [facility] Co de Phone Number [address] [place] [address], [place] * (ABNORMAL) CBC auto differential (07/28/2024 4:35 PM EDT) WBC 13.2(H) 4 - 11 x10E9/L 07/28/2024 4:51 PM EDT [facility] RBC Count 4.48 4.1 - 5.7 X10E12/L 07/28/2024 4:51 PM EDT [facility] Hemoglobin 13.6 13 - 17 g/dL 07/28/2024 4:51 PM EDT [facility] Hematocrit 40.4 39 - 50 % 07/28/2024 4:51 PM EDT [facility] MCV 90 80 - 100 fL 07/28/2024 4:51 PM EDT [facility] MCH 30.5 27 - 34 pg 07/28/2024 4:51 PM EDT [facility] MCHC 33.7 32 - 36 g/dL 07/28/2024 4:51 PM EDT [facility] RDW 13.4 11.5 - 15 % 07/28/2024 4:51 PM EDT [facility] Platelet Count 251 150 - 450 X10E9/L 07/28/2024 4:51 PM EDT [facility] MPV 7.6 7 - 12 fL 07/28/2024 4:51 PM EDT [facility] Neutrophils % 71.4 % 07/28/2024 4:51 PM EDT [facility] Lymphocytes % 20.0 % 07/28/2024 4:51 PM EDT [facility] Monocytes % 7.4 % 07/28/2024 4:51 PM EDT [facility] Eosinophils % 0.8 % 07/28/2024 4:51 PM EDT [facility] Basophils % 0.4 % 07/28/2024 4:51 PM EDT [facility] Neutrophils Absolute (A) 9.5(H) 1.5 - 6.6 10*3/uL 07/28/2024 4:51 PM EDT [facility] Lymphocytes Absolute 2.7 1.0 - 3.5 10*3/uL 07/28/2024 4:51 PM EDT [facility] Monocytes Absolute 1.0(H) 0.0 - 0.9 10*3/uL 07/28/2024 4:51 PM EDT [facility] Eosinophils Absolute 0.1 0.0 - 0.4 10*3/uL 07/28/2024 4:51 PM EDT [facility] Basophils Absolute 0.1 0.0 - 0.2 10*3/uL 07/28/2024 4:51 PM EDT [facility] Differential Type AUTOMATED DIFFERENTIAL 07/28/2024 4:51 PM EDT [facility] Blood Venous blood / Unknown 07/28/2024 4:35 PM EDT 07/28/2024 4:42 PM EDT us Hilario Thomas MD LAB BLOOD ORDERABLES Final Resu lt [address] [place] [address], [place] * (ABNORMAL) Lipase (07/28/2024 4:35 PM EDT) LIPASE 141(H) 17 - 40 U/L 07/28/2024 4:57 PM EDT [facility] Blood Venous blood / Unknown 07/28/2024 4:35 PM EDT 07/28/2024 4:42 PM EDT Hilario Thomas MD LAB BLOOD ORDERABLES Final Resu lt Performing Organization Address [facility] Co de Phone Number [address] [place] [address], [place] * Ethanol (07/28/2024 4:35 PM EDT) ETHANOL <0.010 <=0.080 g/dL 07/28/2024 5:00 PM EDT [facility] Comment: This report is intended for use in clinical monitoring or management of patients. Blood Venous blood / Unknown 07/28/2024 4:35 PM EDT 07/28/2024 4:42 PM EDT Hilario Thomas MD LAB BLOOD ORDERABLES Final Resu lt Performing Organization Address City/[facility] Co de Phone Number [address] [place] [address], [place] * (ABNORMAL) Comprehensive metabolic panel (07/28/2024 4:35 PM EDT) SODIUM 134 134 - 146 mmol/L 07/28/2024 5:00 PM EDT [facility] POTASSIUM 3.5 3.5 - 5.0 mmol/L 07/28/2024 5:00 PM EDT [facility] CHLORIDE 105 98 - 109 mmol/L 07/28/2024 5:00 PM EDT [facility] CARBON DIOXIDE 24 22 - 32 mmol/L 07/28/2024 5:00 PM EDT [facility] ANION GAP 5 5 - 15 mmol/L 07/28/2024 5:00 PM EDT [facility] BLOOD UREA NITROGEN 11 5 - 23 mg/dL 07/28/2024 5:00 PM EDT [facility] CREATININE 0.86 0.70 - 1.20 mg/dL 07/28/2024 5:00 PM EDT [facility] Comment:METHOD TRACEABLE TO IDMS STANDARD GLUCOSE 120(H) 65 - 99 mg/dL 07/28/2024 5:00 PM EDT [facility] CALCIUM 8.7 8.5 - 10.5 mg/dL 07/28/2024 5:00 PM EDT [facility] TOTAL PROTEIN 7.3 6.0 - 8.0 g/dL 07/28/2024 5:00 PM EDT [facility] ALBUMIN 4.2 3.2 - 5.3 g/dL 07/28/2024 5:00 PM EDT [facility] ALKALINE PHOSPHATASE 75 39 - 130 U/L 07/28/2024 5:00 PM EDT [facility] AST 25 <=41 U/L 07/28/2024 5:00 PM EDT [facility] ALT 24 <=40 U/L 07/28/2024 5:00 PM EDT [facility] BILIRUBIN,TOTAL 0.8 0.3 - 1.2 mg/dL 07/28/2024 5:00 PM EDT [facility] EGFR Non-Race Dependent >90 >=60 ml/min/1.7 3sq.m 07/28/2024 5:00 PM EDT [facility] Comment: eGFR not reported due to non-numeric value for Creatinine. Reported eGFR is based on the CKD-EPI 2020 equation that does not use a race coefficient. Blood Venous blood / Unknown 07/28/2024 4:35 PM EDT 07/28/2024 4:42 PM EDT us Hilario Thomas MD LAB BLOOD ORDERABLES Final Resu lt [facility] [address] [place] [address], [place] from Last 3 Months Insurance [employer] [...] 5:42 PM 09/24/2016 7:47 PM Care Teams Cable Layer Relationship Specialty Start Date End Date No Pcp, [place] [address] PCP - General Family Medicine 12/20/23
--- OUTSIDE RECORDS SUMMARY | 2024-10-04 10:31 | XMS_ITS | Encounter Summary ---
Author Organization [facility] tem Address [id number] [address] [place] [address] Care Team Providers Care Dump Truck Operator Name Role Phone No Pcp, No Pcp Primary Care Provider Unavailabl e Encounter Details Date Type Department Care Team (Late st Contact Info) Description 11/24/2016 Telephone [facility] - 8 MED-SURG/ORTHO [address] [place] [address] Coral Jones, TAXI DRIVER-HIGHWAY SAFETY ENGINEER [address] [place] [address] Social History Tobacco Use Types Packs/Day Years [...] on filedocumented in this encounter Care Teams Dump Truck Operator Relationship Specialty Start Date End Date No Pcp, [place] [address] PCP - General Family Medicine 12/20/23 documented as of this encounter
--- OUTSIDE RECORDS SUMMARY | 2024-10-04 10:31 | XMS_ITS | Encounter Summary ---
Author Organization [facility] Address [address], [address] [place] [address] Care Team Providers Care Drain Layer Name Role Phone Baron Serrato Primary Care Provider [phone] Reason for Visit * Reason Comments Medication Refill Encounter Details Date Type Department Care Team (Late st Contact Info) Description 10/14/2020 Refill [facility] [address] [place] [address] [address] [place] [address] Lucio Gauthier MD [address] [place] [address] Medication Refill Social History Tobacco Use Types [...] documented as of this encounter Care Teams Drain Layer Relationship Specialty [place] [address] [place] [address] PCP - General Physician Subwarehouse Supervisor 02/12/24 documented as of this encounter
--- OUTSIDE RECORDS SUMMARY | 2024-10-04 10:31 | XMS_ITS | Encounter Summary ---
Author Organization nGame tem Address [id number] [address] [place] [address] Care Team Providers Care Helmet Binder Name Role Phone No Pcp, No Pcp Primary Care Provider Unavailabl e Encounter Details Date Type Department Care Team (Late st Contact Info) Description 12/16/2023 Orders Only [facility] [address] [place] [address] External, Scanning Provider Social History Tobacco Use Types Packs/Day Years Used Date Smoking Tobacco: Every Day Cigarettes 1 12 Smokeless Tobacco: Never Alcohol Use Standard Drinks/Week Comments Yes 51 [...] on file documented as of this encounter Goals Goal Patient Goal Type Associated Problems [...] a relapse prevention plan at this time. documented as of this encounter Visit Diagnoses Not on filedocumented in this encounter Additional Health Concerns Assessment Noted Time PHQ-9 Depression Total Score: 3 12/22/19 23 8:57 AM EST documented as of this encounter Care Teams Helmet Binder Relationship Specialty Start Date End Date No Pcp, [place] [address] PCP - General Family Medicine 12/20/23 documented as of this encounter
[2024-10-04 10:48] LABS: Hematocrit 42.1 % (42.0-54.0); Hemoglobin 14.4 g/dL (14.0-18.0); Immature Granulocytes Abs Auto 0.02 10^3/uL (0.00-0.03); Immature Granulocytes Pct Auto 0.2 % (0.0-0.5); Lymphocytes Absolute Auto 1.2 10^3/uL (1.2-3.8); Mean Corpuscular HGB Conc 34.2 g/dL (29.9-35.2); Mean Corpuscular Hemoglobin 31.0 pg (25.9-34.0); Mean Corpuscular Volume 90.7 fL (80.0-94.0); Platelet Count 251 10^3/uL (150-450); Red Blood Count 4.64 10^6/uL (4.70-6.10); White Blood Count 9.5 10^3/uL (4.0-11.0)
[2024-10-04] MEDS: HYDROMORPHONE HCL 1 MG/ML CARTRIDGE IVP (10:57)
[2024-10-04] MEDS: 0.9 % SODIUM CHLORIDE 2,000 ML 1000 ML IV (10:57)
[2024-10-04] MEDS: FAMOTIDINE/PF 20 MG/2 ML VIAL IV (10:58)
[2024-10-04 11:04] LABS: Alanine Aminotransferase 36 U/L (16-63); Albumin Globulin Ratio 1.1; Albumin Level 4.1 g/dL (3.4-5.0); Alkaline Phosphatase 96 U/L (46-116); Amylase 48 U/L (25-115); Anion Gap 18.7; Aspartate Amino Transferase 29 U/L (15-37); Blood Urea Nitrogen 17.0 mg/dL (7.0-18.0); Calcium 8.8 mg/dL (8.5-10.1); Carbon Dioxide 25.6 mmol/L (21.0-32.0); Chloride 96 mmol/L (98-107); Estimated GFR (African America >60 (>=60 mL/min/1.73m^2); Estimated GFR (Non-African Ame >60 (>=60 mL/min/1.73m^2); Globulin 3.8 g/dL; Glucose 208 mg/dL (74-106); Magnesium 1.7 mg/dL (1.8-2.4); Potassium 4.3 mmol/L (3.5-5.1); Sodium 136 mmol/L (136-145); Total Protein 7.9 g/dL (6.4-8.2)
[2024-10-04 11:06] LABS: Lipase 82.0 U/L (16.0-77.0)
[2024-10-04] MEDS: HYDROCORTISONE 1% 1 APPLIC TOPICAL (11:33)
[2024-10-04] MEDS: MORPHINE SULFATE 4 MG/ML VIAL IV (12:30)
[2024-10-04] MEDS: MAGNESIUM OXIDE 400 MG TABLET PO (12:30)
--- NOTE | 2024-10-04 12:32 | ED.GENADUL1 ---
HPI HPI - General Adult General Chief complaint: Chest Pain Stated complaint: CHEST PAIN, RASH, LIP TINGLING Time Seen by Provider: 10/04/24 10:15 Source: patient Mode of arrival: walk-in Limitations: no limitations History of Present Illness HPI narrative: Patient is a 34-year-old male, history significant for recurrent episodes of pancreatitis, presenting to the emergency department for concerns of recurrent pancreatitis. Patient states he drinks 11 shots of whiskey last night, and now this morning, he is has epigastric pain that is consistent with his previous episodes of pancreatitis. He states its actually less severe than his typical flare-ups. He states he is nauseous, but no vomiting. He was only able to eat a little bit of chili this morning. He denies any constipation or diarrhea. No fevers or chills. No chest pain or shortness of breath. He takes pancrelipase. He also has stents as he had stones blocking his pancreas. Related Data Home Medications ?Medication ?Instructions ?Recorded ?Confirmed maitlr-efrrcdxg-thvpkri 2 cap PO TID 07/17/24 10/04/24 40,000-126,000-168,000 unit capsule, delay rel (Zenpep) Previous Rx's ?Medication ?Instructions ?Recorded oxycodone 5 mg tablet 5 mg PO Q8H PRN pain #7 tabs 10/04/24 Allergies Allergy/AdvReac Type Severity Reaction Status Date / Time aspirin Allergy Unknown Unknown Verified 10/04/24 10:22 Opioid HPI Opioid Management Most Recent Opioid Data: Last Pain Scale 6 Today, 12:30 Review of Systems ROS Status of ROS 10 or more systems reviewed and unremarkable except as noted in history and below PFSH PFS Social History Little interest or pleasure in doing things: not at all Feeling down, depressed, or hopeless: not at all Exam Narrative Exam Narrative: CONSTITUTIONAL: He appears uncomfortable, but nontoxic. Answer questions and follow commands appropriately. SKIN: Was warm and dry. EYES: Sclerae white. No scleral icterus EARS, NOSE, THROAT: Tacky mucous membranes. RESPIRATORY: Clear to auscultation bilaterally, no wheezes, crackles, or stridor, no use of accessory muscles CARDIOVASCULAR: Normal rate and regular rhythm. There is no S3, S4, murmur, rub. GASTROINTESTINAL: There is tenderness to palpation in the epigastrium without rebound tenderness. There is voluntary guarding. Abdomen is nondistended. MUSCULOSKELETAL: No peripheral edema. NEUROLOGIC: Patient is awake and alert. Facies were symmetrical. Constitutional Vital Signs, click to edit/add: Last Vital Signs Temp 98.2 F 10/04/24 13:04 Pulse 84 10/04/24 13:04 Resp 18 10/04/24 13:04 BP 154/99 H 10/04/24 13:04 Pulse Ox 98 10/04/24 13:04 O2 Del Method Room Air 10/04/24 13:04 Course Vital Signs Vital signs: Vital Signs Pulse Rate 86 10/04/24 10:21 Respiratory Rate 10 L 10/04/24 10:21 Temperature 98.2 F 10/04/24 13:04 Pulse Rate 84 10/04/24 13:04 Respiratory Rate 18 10/04/24 13:04 Blood Pressure 154/99 H 10/04/24 13:04 Pulse Oximetry 98 10/04/24 13:04 Oxygen Delivery Method Room Air 10/04/24 13:04 Medical Decision Making [facility] Narrative Medical decision making narrative: Patient is a 34-year-old male, history significant for pancreatitis, presenting to the emergency department with epigastric pain consistent with his previous episodes of pancreatitis after drinking 11 shots of whiskey last night. Vital signs on arrival are significant for mild hypertension, likely related to his acute pain. He is afebrile and hemodynamically stable. He has tenderness to palpation of the epigastrium without peritoneal signs My clinical impression is that the patient is having recurrent pancreatitis secondary to binging on alcohol yesterday. He has no changes in the characteristics of his symptoms, actually states is less severe than usual. Additionally, he has no vomiting, fevers, or other systemic symptoms. I have low concern for necrotizing pancreatitis, pseudocyst, or other complications related to pancreatitis. Other potential differential diagnose includes gastritis or GERD. IV was established and laboratory studies were obtained. He was given IV Dilaudid, 2 L bolus normal saline, and IV Zofran for symptomatic treatment Laboratory studies were unremarkable other than a mildly elevated lipase level of 82. Amylase level was normal. He is mildly hypomagnesemic, which was replaced with oral magnesium oxide. No significant electrolyte or metabolic derangement. No evidence of acute kidney injury. No anemia, leukocytosis, or thrombocytopenia. No transaminitis or hyperbilirubinemia. Patient's presentation is consistent with an episode of mild pancreatitis. On reevaluation, patient states his pain is improving but is requesting another dose of medication. He was given 4 mg IV morphine. He was given ice chips to drink, which he did tolerate. On further reevaluation, patient states he feels improved enough to go home. His pain is under control and he is tolerating p.o. I did give him prescription for oxycodone x 6 tablets. Return precautions were given including any new or concerning symptoms. Patient was instructed to follow-up with his PCP for further care. Patient understands and agrees to plan. FINAL IMPRESSION: #Acute on chronic pancreatitis DISPOSITION: Discharged home CONDITION: Fair Medical Records Medical records reviewed: Yes I reviewed the patient's medical records Lab Data Lab results reviewed: Yes I reviewed the patient's lab results Labs: Lab Results 10/04/24 Range/Units 10:30 WBC 9.5 (4.0-11.0) 10^3/uL RBC 4.64 L (4.70-6.10) 10^6/uL Hgb 14.4 (14.0-18.0) g/dL Hct 42.1 (42.0-54.0) % MCV 90.7 (80.0-94.0) fL MCH 31.0 (25.9-34.0) pg MCHC 34.2 (29.9-35.2) g/dL RDW 12.7 (11.0-15.0) % Plt Count 251 (150-450) 10^3/uL MPV 9.3 L (9.5-13.5) fL Neut % (Auto) 82.0 H (43.0-75.0) % Lymph % (Auto) 12.3 L (20.5-60.0) % Norton % (Auto) 4.3 (1.7-12.0) % Eos % (Auto) 0.2 L (0.9-7.0) % Baso % (Auto) 1.0 (0.2-2.0) % Neut # (Auto) 7.8 H (1.4-6.5) 10^3/uL Lymph # (Auto) 1.2 (1.2-3.8) 10^3/uL Norton # (Auto) 0.4 (0.3-0.8) 10^3/uL Eos # (Auto) 0.0 (0.0-0.7) 10^3/uL Baso # (Auto) 0.1 (0.0-0.1) 10^3/uL Abs Immat Gran (auto) 0.02 (0.00-0.03) 10^3/uL Imm/Tot Granulo (auto) 0.2 (0.0-0.5) % Sodium 136 (136-145) mmol/L Potassium 4.3 (3.5-5.1) mmol/L Chloride 96 L (98-107) mmol/L Carbon Dioxide 25.6 (21.0-32.0) mmol/L Anion Gap 18.7 BUN 17.0 (7.0-18.0) mg/dL Creatinine 0.88 (0.70-1.30) mg/dL Est GFR ( Amer) >60 (>=60 mL/min/1.73m^2) Est GFR (Non-Af Amer) >60 (>=60 mL/min/1.73m^2) BUN/Creatinine Ratio 19.3 Glucose 208 H (74-106) mg/dL Calcium 8.8 (8.5-10.1) mg/dL Magnesium 1.7 L (1.8-2.4) mg/dL Total Bilirubin 0.8 (0.2-1.0) mg/dL AST 29 (15-37) U/L ALT 36 (16-63) U/L Alkaline Phosphatase 96 (46-116) U/L Total Protein 7.9 (6.4-8.2) g/dL Albumin 4.1 (3.4-5.0) g/dL Globulin 3.8 g/dL Albumin/Globulin Ratio 1.1 Amylase 48 (25-115) U/L Lipase 82.0 H (16.0-77.0) U/L ECG Data Attestation: I personally reviewed and interpreted this ECG as follows: (12 Lead EKG: Normal sinus rhythm at a rate of 87. Normal axis. No ST segment elevations. QRS, MD, and QTc interval within normal limits. Final impression: normal sinus rhythm without evidence of acute myocardial ischemia) Discharge Plan Discharge Chief Complaint: Chest Pain Clinical Impression: Pancreatitis Qualifiers: Chronicity: acute Pancreatitis type: alcohol induced Patient Disposition: Home, Self-Care Time of Disposition Decision: 13:01 Condition: Fair Mode of Transportation: Private Vehicle Prescriptions / Home Meds: New oxycodone 5 mg tablet 5 mg PO Q8H PRN (Reason: pain) Qty: 7 0RF No Action Zenpep 40,000-126,000- 168,000 unit capsule,delayed release(DR/EC) 2 cap PO TID Rx Instructions: administer with meals and/or snacks Print Language: Urdu Instructions: Pancreatitis (ED) Referrals: Physician,Non-Staff, MD [Primary Care Provider] - 1 week Discharge Date/Time: 10/04/24 13:26
== END 2024-10-04 13:26 | disposition home or self-care (01) ==
PROVIDERS: Emergency Provider Student in an Organized Health Care Education/Training Program
DX: K85.20 Alcohol induced acute pancreatitis without necrosis or infection (principal); E83.42 Hypomagnesemia
CPT/HCPCS: 36415; 80053; 82150; 83690; 83735; 85025; 93005; 96374; 96375; 99284; J1171; J2270; J2405; J3490

== ENCOUNTER 2024-10-05 18:45 | Emergency (ER) | payer OTHER, SELFPAY ==
[2024-10-05 18:52] VITALS: BP 161/96; PULSE 69; TEMP 36.7; O2SAT 99; BMI 19.3
--- OUTSIDE RECORDS SUMMARY | 2024-10-05 19:29 | XMS_ITS | Clinical Summary ---
Author Organization [email or web address] tem Address [id number] [address] [place] [address] Care Team Providers Care Catalyst Unit Operator Name Role Phone No Pcp, No Pcp Primary Care Provider Unavailabl e Allergies Active Allergy Reactions Criticality Noted Date Comments Aspirin 07/25/2016 Ibuprofen 12/21/2022 Ketorolac Flushing Low 12/22/2022 Medications tjybcc-nbgqlajg-aqw lase 40,000-126,000- 168,000 unit capsule,delayed release(DR/EC) Take [...] EDT - 07/28/2024 7:29 PM EDT Emergency [facility] - Emergency [address] [place] [address] Hilario Thomas MD Alcohol-induced chronic pancreatitis (CMS-HCC) (Primary Dx) Discharge Disposition: Home 07/28/2024 Travel from Last 3 Months Immunizations Immunization Administration Dates Next Due Influenza, Injectable, quadrivalent (PF) 017 Pneumococcal Polysaccharide 08/30/2020 Tdap 05/08/2020 Family History Medical History Relation Name Comments Asthma Brother 1 No Known Problems Brother 2 Heart disease Father Tobias Hypertension Father Tobias Other Father Tobias Heart Stent Hyperlipidemia Mother Biis Hypertension Paternal Grandfather No Known Problems Sister [...] - 2.0 mmol/L 07/28/2024 4:59 PM EDT [facility] Blood Venous blood / Unknown 07/28/2024 4:36 PM EDT 07/28/2024 4:41 PM EDT Narrative [facility] - 07/28/2024 4:59 PM EDT Result did not trigger repeat Lactate, re-order if needed. us Hilario Thomas MD LAB BLOOD ORDERABLES Final Resu lt Performing Organization Address City/[facility]/ZIP Co de Phone Number [address] [place] [address], [place] * Light Blue Top (07/28/2024 4:35 PM EDT) Extra Tube Auto Resulted 07/28/2024 6:02 PM EDT [facility] Blood Venous blood / Unknown 07/28/2024 4:35 PM EDT 07/28/2024 4:43 PM EDT Hilario Thomas MD LAB BLOOD ORDERABLES Final Resu lt Performing Organization Address [facility] Co de Phone Number [address] [place] [address], [place] * (ABNORMAL) CBC auto differential (07/28/2024 4:35 PM EDT) WBC 13.2(H) 4 - 11 x10E9/L 07/28/2024 4:51 PM EDT [facility] RBC Count 4.48 4.1 - 5.7 X10E12/L 07/28/2024 4:51 PM EDT [facility] Hemoglobin 13.6 13 - 17 g/dL 07/28/2024 4:51 PM EDT [facility] Hematocrit 40.4 39 - 50 % 07/28/2024 4:51 PM EDT [facility] MCV 90 80 - 100 fL 07/28/2024 4:51 PM EDT [facility] MCH 30.5 27 - 34 pg 07/28/2024 4:51 PM EDT [facility] MCHC 33.7 32 - 36 g/dL 07/28/2024 4:51 PM EDT [facility] RDW 13.4 11.5 - 15 % 07/28/2024 4:51 PM EDT [facility] Platelet Count 251 150 - 450 X10E9/L 07/28/2024 4:51 PM EDT [facility] MPV 7.6 7 - 12 fL 07/28/2024 4:51 PM EDT [facility] Neutrophils % 71.4 % 07/28/2024 4:51 PM EDT [facility] Lymphocytes % 20.0 % 07/28/2024 4:51 PM EDT [facility] Monocytes % 7.4 % 07/28/2024 4:51 PM EDT [facility] Eosinophils % 0.8 % 07/28/2024 4:51 PM EDT [facility] Basophils % 0.4 % 07/28/2024 4:51 PM EDT [facility] Neutrophils Absolute (A) 9.5(H) 1.5 - 6.6 10*3/uL 07/28/2024 4:51 PM EDT [facility] Lymphocytes Absolute 2.7 1.0 - 3.5 10*3/uL 07/28/2024 4:51 PM EDT [facility] Monocytes Absolute 1.0(H) 0.0 - 0.9 10*3/uL 07/28/2024 4:51 PM EDT [facility] Eosinophils Absolute 0.1 0.0 - 0.4 10*3/uL 07/28/2024 4:51 PM EDT [facility] Basophils Absolute 0.1 0.0 - 0.2 10*3/uL 07/28/2024 4:51 PM EDT [facility] Differential Type AUTOMATED DIFFERENTIAL 07/28/2024 4:51 PM EDT [facility] Blood Venous blood / Unknown 07/28/2024 4:35 PM EDT 07/28/2024 4:42 PM EDT us Hilario Thomas MD LAB BLOOD ORDERABLES Final Resu lt [address] [place] [address], [place] * (ABNORMAL) Lipase (07/28/2024 4:35 PM EDT) LIPASE 141(H) 17 - 40 U/L 07/28/2024 4:57 PM EDT [facility] Blood Venous blood / Unknown 07/28/2024 4:35 PM EDT 07/28/2024 4:42 PM EDT Hilario Thomas MD LAB BLOOD ORDERABLES Final Resu lt Performing Organization Address [facility] Co de Phone Number [address] [place] [address], [place] * Ethanol (07/28/2024 4:35 PM EDT) ETHANOL <0.010 <=0.080 g/dL 07/28/2024 5:00 PM EDT [facility] Comment: This report is intended for use in clinical monitoring or management of patients. Blood Venous blood / Unknown 07/28/2024 4:35 PM EDT 07/28/2024 4:42 PM EDT Hilario Thomas MD LAB BLOOD ORDERABLES Final Resu lt Performing Organization Address City/[facility] Co de Phone Number [address] [place] [address], [place] * (ABNORMAL) Comprehensive metabolic panel (07/28/2024 4:35 PM EDT) SODIUM 134 134 - 146 mmol/L 07/28/2024 5:00 PM EDT [facility] POTASSIUM 3.5 3.5 - 5.0 mmol/L 07/28/2024 5:00 PM EDT [facility] CHLORIDE 105 98 - 109 mmol/L 07/28/2024 5:00 PM EDT [facility] CARBON DIOXIDE 24 22 - 32 mmol/L 07/28/2024 5:00 PM EDT [facility] ANION GAP 5 5 - 15 mmol/L 07/28/2024 5:00 PM EDT [facility] BLOOD UREA NITROGEN 11 5 - 23 mg/dL 07/28/2024 5:00 PM EDT [facility] CREATININE 0.86 0.70 - 1.20 mg/dL 07/28/2024 5:00 PM EDT [facility] Comment:METHOD TRACEABLE TO IDMS STANDARD GLUCOSE 120(H) 65 - 99 mg/dL 07/28/2024 5:00 PM EDT [facility] CALCIUM 8.7 8.5 - 10.5 mg/dL 07/28/2024 5:00 PM EDT [facility] TOTAL PROTEIN 7.3 6.0 - 8.0 g/dL 07/28/2024 5:00 PM EDT [facility] ALBUMIN 4.2 3.2 - 5.3 g/dL 07/28/2024 5:00 PM EDT [facility] ALKALINE PHOSPHATASE 75 39 - 130 U/L 07/28/2024 5:00 PM EDT [facility] AST 25 <=41 U/L 07/28/2024 5:00 PM EDT [facility] ALT 24 <=40 U/L 07/28/2024 5:00 PM EDT [facility] BILIRUBIN,TOTAL 0.8 0.3 - 1.2 mg/dL 07/28/2024 5:00 PM EDT [facility] EGFR Non-Race Dependent >90 >=60 ml/min/1.7 3sq.m 07/28/2024 5:00 PM EDT [facility] Comment: eGFR not reported due to non-numeric value for Creatinine. Reported eGFR is based on the CKD-EPI 2020 equation that does not use a race coefficient. Blood Venous blood / Unknown 07/28/2024 4:35 PM EDT 07/28/2024 4:42 PM EDT us Hilario Thomas MD LAB BLOOD ORDERABLES Final Resu lt [facility] [address] [place] [address], [place] from Last 3 Months Insurance [employer] [...] 5:42 PM 09/24/2016 7:47 PM Care Teams Catalyst Unit Operator Relationship Specialty Start Date End Date No Pcp, [place] [address] PCP - General Family Medicine 12/20/23
--- OUTSIDE RECORDS SUMMARY | 2024-10-05 19:29 | XMS_ITS | Encounter Summary ---
Author Organization [facility] tem Address [id number] [address] [place] [address] Care Team Providers Care Expert Witness Name Role Phone No Pcp, No Pcp Primary Care Provider Unavailabl e Encounter Details Date Type Department Care Team (Late st Contact Info) Description 11/24/2016 Documentation [facility] - 8 MED-SURG/ORTHO [address] [place] [id number] Coral Jones, RESIDENTIAL DOOR INSTALLER-RATE SUPERVISOR [address] [place] [address] Social History Tobacco Use Types Packs/Day Years [...] on filedocumented in this encounter Care Teams Expert Witness Relationship Specialty Start Date End Date No Pcp, [place] [address] PCP - General Family Medicine 12/20/23 documented as of this encounter
--- OUTSIDE RECORDS SUMMARY | 2024-10-05 19:29 | XMS_ITS | Clinical Summary ---
Author Organization [facility] Address [address], [address] [place] [address] Care Team Providers Care Tearer Press Clipping Name Role Phone Baron Serrato Primary Care Provider Allergies Active Allergy Reactions Criticality Noted Date Comments Aspirin 05/10/2014 Unsure why he states mom told him to not take it Ibuprofen 12/21/2022 Ketorolac Other (See Comments) Low 12/22/2022 Medications Pancrelipase, Ldf-Miso-Ioxo, (ZENPEP) 7[address]60-391934 units CPEP Take 2 capsules by mouth in the morning, at noon, and at bedtime 240 capsule 4 12/26/19 24 Active gabapentin (NEURONTIN) 100 MG capsuleIndicat ions:Alcoholis m ([facility]) Take 1 capsule by mouth 2 times [...] 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 No 04/26/2024 Food Insecurity Answer [...] 02/25/2024, 025 Medical Devices Implanted Type Area Metal Stud Framer Device Identifier Shelf Expiration Date Model / Serial / Lot Stent Pancreas 7fr L12cm Plas Str Ld Katarina Trailing Rad[employer] - [id number] Implanted:Qty : 1 on 12/05/2023 by Scott Morales MD at [facility] Stent:Bi liary/Pa ncreatic /Iliac N/A: Pancreas [employer]- [id number] 07/01/2024 [id number] 0 / / [id number] Stent Pancreas 7fr L7cm Plas Str Ld Katarina Trailing Radpq Mrk - [id number] Implanted:Qty : 1 on 12/05/2023 by Scott Morales MD at [facility] Stent:Bi liary/Pa ncreatic /Iliac N/A: Duodenum [employer]- [id number] 01/20/2025 [id number] 0 / / [id number] Advanix Panc Stent Strt Lb 7xgd34gu - [id number] Implanted:Qty : 1 on 12/05/2023 by Scott Morales MD at [facility] Stent N/A: Pancreas [employer]- [id number] 04/29/2024 [id number] 0 / / [id number] Stent Pancreas L7cm Od7fr Polymer Pgtl Ld Katarina Ld Radpq Mrk - [id number] Implanted:Qty : 1 on 10/17/2022 by Scott Morales MD at [facility] N/A: Other [employer]- 12/20/2023 [id number] / / [id number] Stent Pancreas 5fr L7cm 0.035in For Drn Obstructed Pancreas - [id number] Implanted:Qty : 1 on 10/17/2022 by Scott Morales MD at [facility] N/A: Other [employer]WD 10/30/2024 [id number] / / [id number] System Del 7fr Pancreas [employer] Rx - [id number] Implanted:Qty : 2 on 01/22/2023 by Scott Morales MD at [facility] N/A: Pancreas [employer]WD 05/19/2024 [id number] 0 / / [id number] Stent Pancreas L9cm Od7fr Polymer Pgtl Ld Katarina Ld Radpq Mrk - [id number] Implanted:Qty : 1 on 01/22/2023 by Scott Morales MD at [facility] N/A: Pancreas [employer]WD 04/29/2024 [id number] 0 / / [id number] Stent Pancreas L7cm Od7fr Polymer Pgtl Ld Katarina Ld Radpq Mrk - [id number] Implanted:Qty : 1 on 01/22/2023 by Scott Morales MD at [facility] N/A: Pancreas [employer]WD 04/29/2024 [id number] / / [id number] Stent Pancreas L7cm Od5fr Polymer Pgtl Ld Katarina Ld Radpq Mrk - [id number] Implanted:Qty : 1 on 01/22/2023 by Scott Morales MD at [facility] N/A: Pancreas [employer]WD 06/02/2024 [id number] / / [id number] Explanted Type Area Metal Stud Framer Device Identifier Shelf Expiration Date Model / Serial / Lot Kit Pancreas Stnt 5fr L7cm Plas Str No Ld Katarina Trailing - [id number] Explanted:Qty: 1 on 10/17/2022 at [facility] [employer] 12/08/2022 [id number] / / [id number] Description:Wrong size Procedures Procedure Name Priority Date/Time Associated Diagnosis Comments HEPATITIS PANEL, ACUTE STAT 10/30/2023 9:13 PM EDT HIV SCREEN Routine 09/19/2020 10:05 AM EDT Healthcare maintenance from Last 3 Months or Most Recently Relevant to Health Maintenance Results * Hepatitis Panel, Acute (10/30/2023 9:13 PM EDT) Hepatitis B Surface Ag NONREACTIVE NONREACTIVE 10/30/2023 9:13 PM EDT [facility] Hepatitis C Ab NONREACTIVE NONREACTIVE 10/30/19 24 9:13 PM EDT [facility] Comment: The hepatitis C procedure used in [...] IgM NONREACTIVE NONREACTIVE 10/11 9:13 PM EDT [facility] Hep A IgM NONREACTIVE NONREACTIVE 10/30/2023 9:13 PM EDT [facility] BLOOD SPECIMEN / Unknown 10/30/2023 9:13 PM EDT 10/30/2023 9:16 PM EDT Amaury Hooks PA-C IMMUNOLOGY ORDER YAZAN Final Result Performing Organization Address City/[facility]/ZIP Co de Phone Number [facility] [address] [place] [address], [facility] [phone] [facility] [address] [place] [address], [facility] [phone] * HIV Screen (09/19/2020 10:05 AM EDT) Pathologist [facility] HIV Ag/Ab NONREACTIVE NONREACTIVE 09/19/2020 10:05 AM EDT [facility] Comment: No laboratory evidence of HIV infection. If acute HIV infection is suspected, consider testing for HIV-1 RNA. BLOOD SPECIMEN / Unknown 09/19/2020 10:05 AM EDT 09/19/2020 10:21 AM EDT Ganesh Datt IMMUNOLOGY ORDERABLES Final Resu lt Performing Organization Address City/[facility]/ZIP Co de Phone Number [facility] [employer] [address] [place] [address], [facility] [phone] from Last 3 Months or Most Recently Relevant to Health Maintenance Insurance [facility] Member Subscriber Plan / Payer (Ef fective 2023-Present) Name:Christoph Jones Relation to Subscriber:Self Name:Christoph Jones Payer ID:[id number] (NAIC) Group ID:[id number] Type:Not on file Address: [place] [phone] [facility] Advance Directives * Full Code (Latest [...] 6:47 AM 12/07/2022 8:01 PM Care Teams Tearer Press Clipping Relationship Specialty Start [place] [address] [place] [address] PCP - General Physician Pediatric Oncologist 02/12/24
--- OUTSIDE RECORDS SUMMARY | 2024-10-05 19:29 | XMS_ITS | Encounter Summary ---
Author Organization [facility] Address [address], [address] [place] [address] Care Team Providers Care Call Center Dispatcher Name Role Phone Baron Serrato Primary Care Provider [phone] Reason for Visit * Reason Comments Medication Refill Encounter Details Date Type Department Care Team (Late st Contact Info) Description 10/14/2020 [facility] [address] [place] [address] [address] [place] [address] Lucio Gauthier MD [address] [place] [address] Medication Refill Social History Tobacco Use Types [...] documented as of this encounter Care Teams Call Center Dispatcher Relationship Specialty [place] [address] [place] [address] PCP - General Physician Tower Helper 02/12/24 documented as of this encounter
--- OUTSIDE RECORDS SUMMARY | 2024-10-05 19:29 | XMS_ITS | Encounter Summary ---
Author Organization [facility] tem Address [id number] [address] [place] [address] Care Team Providers Care Form Raiser Name Role Phone No Pcp, No Pcp Primary Care Provider Unavailabl e Encounter Details Date Type Department Care Team (Late st Contact Info) Description 11/24/2016 Telephone [facility]OR[facility]O [address] [place] [address] Coral Jones, LITHOGRAPHIC PRINTING MACHINIST-STEAM PAN SPONGER [address] [place] [address] Social History Tobacco Use Types Packs/Day Years [...] on filedocumented in this encounter Care Teams Form Raiser Relationship Specialty Start Date End Date No Pcp, [place] [address] PCP - General Family Medicine 12/20/23 documented as of this encounter
[2024-10-05] MEDS: TRIAMCINOLONE ACETONIDE 40 MG/ML VIAL IM (19:37)
--- NOTE | 2024-10-05 19:39 | ED.GENADUL1 ---
HPI HPI - General Adult General Chief complaint: Skin/Abscess/Foreign Body Stated complaint: PANCREATITUS FLARE/ POISON CODY Time Seen by Provider: 10/05/24 19:25 Source: patient Mode of arrival: walk-in Limitations: no limitations History of Present Illness HPI narrative: 34-year-old male returns here to the emergency room with a chief complaint of a rash bilateral lower extremities consistent with contact dermatitis. Patient was seen and worked up here yesterday for pancreatitis in the ER, new prescription for hydrocodone. At that time he used umbp-mmb-uvtztpn cortisone cream. He states the rash is getting worse. He states the rash hurts. Rash to bilateral shins of the lower extremity consistent with contact dermatitis. Patient has no other complaints today. Related Data Home Medications ?Medication ?Instructions ?Recorded ?Confirmed fujpfr-kqxaebiq-uenyzob 2 cap PO TID 07/17/24 10/04/24 40,000-126,000-168,000 unit capsule, delay rel (Zenpep) Previous Rx's ?Medication ?Instructions ?Recorded oxycodone 5 mg tablet 5 mg PO Q8H PRN pain #7 tabs 10/04/24 prednisone 20 mg tablet 20 mg PO DAILY 3 days #5 tabs 10/05/24 Allergies Allergy/AdvReac Type Severity Reaction Status Date / Time aspirin Allergy Unknown Unknown Verified 10/05/24 18:52 Opioid HPI Opioid Management Most Recent Opioid Data: Last Pain Scale 5 Today, 18:52 Review of Systems ROS Status of ROS 10 or more systems reviewed and unremarkable except as noted in history and below PFSH PFS Social History Little interest or pleasure in doing things: not at all Feeling down, depressed, or hopeless: not at all Exam Narrative Exam Narrative: All Systems are negative except as noted/marked.All systems reviewed and otherwise negative Nurses note and vital signs reviewed and patient is not hypoxic. General: The patient appears well and in no apparent distress. Patient is resting comfortably on cart. Skin: Warm, dry, no pallor noted. Dermatitis bilateral lower extremities anterior shins and right thigh Head: Normocephalic, atraumatic Eye: Normal conjunctiva, no drainage, EOMI. PERRL Ears, Nose, Mouth, and Throat: oral mucosa is moist. Nares patent. Mouth without vesicles. Ear canals patent. Tm's without Erythema Cardiovascular: Regular Rate and Rhythm Respiratory: Patient is in no distress, no accessory muscle use, lungs are clear to auscultation, no wheezing, rales or rhonchi Back: non-tender, no CVA tenderness bilaterally to percussion. GI: Normal bowel sounds, no tenderness to palpation, no masses appreciated. No rebound, guarding, or rigidity noted. Musculoskeletal: The patient has no evidence of calf tenderness, no pitting edema, symmetrical pulses noted bilaterally Neurological: A&O x4, normal speech Psychiatric: Cooperative Constitutional Vital Signs, click to edit/add: Last Vital Signs Temp 98.1 F 10/05/24 18:52 Pulse 69 10/05/24 18:52 Resp 16 10/05/24 18:52 BP 161/96 H 10/05/24 18:52 Pulse Ox 99 10/05/24 18:52 Course Vital Signs Vital signs: Vital Signs Temperature 98.1 F 10/05/24 18:52 Pulse Rate 69 10/05/24 18:52 Respiratory Rate 16 10/05/24 18:52 Blood Pressure 161/96 H 10/05/24 18:52 Pulse Oximetry 99 10/05/24 18:52 Temperature 98.1 F 10/05/24 18:52 Pulse Rate 69 10/05/24 18:52 Respiratory Rate 16 10/05/24 18:52 Blood Pressure 161/96 H 10/05/24 18:52 Pulse Oximetry 99 10/05/24 18:52 Medical Decision Making [facility] Narrative Medical decision making narrative: 34-year-old male returns here to the emergency room with a chief complaint of a rash bilateral lower extremities consistent with contact dermatitis. Patient was seen and worked up here yesterday for pancreatitis in the ER, new prescription for hydrocodone. At that time he used brii-tjn-weoajll cortisone cream. He states the rash is getting worse. He states the rash hurts. Rash to bilateral shins of the lower extremity consistent with contact dermatitis. Patient has no other complaints today. Patient presented here with a chief complaint of he needed a work note from his visit here in the emergency room yesterday for plaque pancreatitis and also wanted his poison cody reevaluated. Patient was given a shot here of Kenalog for his poison cody. He was also given a small prescription of prednisone that he may start 72 hours from now if the symptoms or not improving. Patient also told use atyd-fdm-prglvwa calamine lotion. Patient verbalized understanding agrees plan of care denied any pain for his abdomen today. Differential Diagnosis Differential Diagnosis: Cody, poison oak, contact dermatitis, rash Medical Records Medical records reviewed: Yes I reviewed the patient's medical records Lab Data Lab results reviewed: Yes I reviewed the patient's lab results Discharge Plan Discharge Chief Complaint: Skin/Abscess/Foreign Body Clinical Impression: Contact dermatitis Patient Disposition: Home, Self-Care Time of Disposition Decision: 19:39 Condition: Good Prescriptions / Home Meds: New prednisone 20 mg tablet 20 mg PO DAILY 3 Days Qty: 5 0RF No Action oxycodone 5 mg tablet 5 mg PO Q8H PRN (Reason: pain) Qty: 7 0RF Zenpep 40,000-126,000- 168,000 unit capsule,delayed release(DR/EC) 2 cap PO TID Rx Instructions: administer with meals and/or snacks Print Language: Polish Instructions: Contact Dermatitis (ED) Referrals: Physician,Non-Staff, MD [Primary Care Provider] - 1 week
--- NOTE | 2024-10-05 19:52 | PC.NURSE ---
poison lorenzo to lower extremities. Was seen yesterday in this ED for pancreatitis, had the rash at that time. Today, the rash is much worse, his leg is red and swollen and irritated. He has been using topical medication and Benadryl with no relief. He called urgent care to see if they would treat him and they advised him to come to the ED.
== END 2024-10-05 19:52 | disposition home or self-care (01) ==
PROVIDERS: Emergency Provider Student in an Organized Health Care Education/Training Program
DX: L25.5 Unspecified contact dermatitis due to plants, except food (principal)
CPT/HCPCS: 96372; 99284; J3301

== ENCOUNTER 2024-10-12 19:14 | Emergency (ER) | payer SELFPAY ==
[2024-10-12 19:20] VITALS: BP 164/102; PULSE 72; TEMP 36.8; O2SAT 100; BMI 18.8
--- NOTE | 2024-10-12 19:34 | ED_ITS ---
HPI - Abdominal Pain General Chief Complaint: Abdominal Pain Stated Complaint: PANCREATITUS Time Seen by Provider: 10/12/24 19:24 Source: patient Mode of arrival: Uber History of Present Illness HPI narrative: cc -abdominal pain Patient with history of chronic, recurrent pancreatitis was been seen several times in this emergency department [place] now returns with complaints consistent with an acute exacerbation of his chronic pancreatitis. Patient states he is a chronic, regular user of alcohol and gets intermittent flareups secondary to alcohol use. He stated that over the last 48 to 72 hours he has been drinking alcohol persistently with last use around 9 AM this morning. He presents with a tightness and what he described as waves of achy pain in the mid epigastric area without radiation to the back. He admits to some nausea without vomiting. No diarrhea. No blood in urine or stool. No fall or injury to account for this pain. He denies any fever, chills. No history of pancreatic or biliary stones. He has history of pancreatic stent Chart review reveals that he has been seen several times in this emergency department for similar presentation with some findings showing elevated lipase and others showing a more benign workup. Related Data Home Medications ?Medication ?Instructions ?Recorded ?Confirmed vjgclf-qfcytyta-ylriatc 2 cap PO TID 07/17/24 40,000-126,000-168,000 unit capsule, delay rel (Zenpep) Previous Rx's ?Medication ?Instructions ?Recorded famotidine 20 mg tablet (Pepcid) 20 mg PO BID #14 tabs 10/12/24 hyoscyamine sulfate 0.125 mg 0.125 mg PO Q6H PRN abdom inal pain 10/12/24 sublingual tablet (Levsin/SL) #20 tabs ondansetron 4 mg disintegrating 4 mg PO Q6H PRN nausea and 10/12/24 tablet vomiting #20 tabs Allergies Allergy/AdvReac Type Severity Reaction Status Date / Time aspirin Allergy Unknown Unknown Verified 10/05/24 18:52 PFSH PFSH Social History Little interest or pleasure in doing things: not at all Feeling down, depressed, or hopeless: not at all Exam Narrative Exam Narrative: Nurses notes and vital signs reviewed and patient is not hypoxic. afebrile General: Well-appearing and in no apparent distress. Skin: Warm, dry, no pallor noted. Head: Normocephalic, atraumatic. Neck: Supple, non-tender. No meningismus. Eye: Pupils are equal, round and EOMI. No scleral icterus. Ears, Nose, Mouth, and Throat: Oral mucosa is dry Cardiovascular: Regular Rate and Rhythm without murmur, gallop or rub. Respiratory: No accessory muscle use or respiratory distress. Lungs are clear to auscultation, no wheezing, rales or rhonchi Back: No CVA tenderness Musculoskeletal: normal ROM, no calf or popliteal tenderness, no lower extremity edema/swelling GI: Abdomen is soft, non-distended. Normal bowel sounds. No solid or pulsatile masses appreciated. Epigastric tenderness to palpation. No rebound, guarding, or rigidity noted. Neurological: A&O x4. No cranial nerve dysfunction observed. No truncal ataxia. Moves all extremities. Sensation intact. Psychiatric: Cooperative and interactive. Normal mood and affect. Constitutional Vital Signs, click to edit/add: Last Vital Signs Temp 98.3 F 10/12/24 19:20 Pulse 63 10/12/24 21:02 Resp 18 10/12/24 21:02 BP 153/91 H 10/12/24 21:02 Pulse Ox 98 10/12/24 21:02 O2 Del Method Room Air 10/12/24 19:20 Course Vital Signs Vital signs: Vital Signs Temperature 98.3 F 10/12/24 19:20 Pulse Rate 72 10/12/24 19:20 Respiratory Rate 14 10/12/24 19:20 Blood Pressure 164/102 H 10/12/24 19:20 Pulse Oximetry 100 10/12/24 19:20 Oxygen Delivery Method Room Air 10/12/24 19:20 Temperature 98.3 F 10/12/24 19:20 Pulse Rate 63 10/12/24 21:02 Respiratory Rate 18 10/12/24 21:02 Blood Pressure 153/91 H 10/12/24 21:02 Pulse Oximetry 98 10/12/24 21:02 Oxygen Delivery Method Room Air 10/12/24 19:20 MDM - Abdominal Pain MDM Narrative Medical decision making narrative: Peripheral IV was established blood drawn and sent for testing. Patient was ordered to receive a liter of normal saline IV fluid, IV Zofran, and oral dissolvable Levsin. He is uncertain whether or not he has ever been diagnosed with alcohol associated gastritis. No recent EGD. He was therefore given IV Protonix. CBC normal and no anemia noted. Minimal decrease in sodium and chloride but potassium was normal. Normal renal function. LFTs with slightly elevated AST and ALT. Normal total bilirubin. Lipase is just minimally elevated at 83 -the upper limit of normal is 77. On reassessment at 2029, the patient told me that he has a generalized headache that has been present for the last 2 days. He denied any injury to the head or neck. He says that he sometimes gets headaches. He admits to not eating the w ay that he should over the last couple days while binging alcohol. He told me that today he ate some chicken and also has been drinking some Gatorade but did not take anything at home for the pain. On discussion and interview, no history of migraine, cluster or tension headaches. His headache is not explosive or the worst of his life. It is slow onset and steady without much worsening over the last 2 days. No photophobia, neck pain, visual change or other associated symptoms -aside from his chief complaint of upper abdominal pain. He was ordered to receive oral Tylenol and IV Toradol. The patient I discussed his lab findings and his diagnosis today. 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 I told him that the treatment for these conditions is going to be strict alcohol avoidance, clear liquid diet for the next 24 hours with advancement to soft bland foods once the abdominal pain decreases. He was discharged home with prescriptions for Pepcid, Zofran and Levsin and instructed to take Tylenol for any continued headache. Medical Records Attestation: I reviewed the patient's medical records. Medical records narrative: Review of the patient's prior ED visits shows several evaluations for similar symptoms with diagnoses of pancreatitis on several occasions. He was also recently seen by Dr. Morillo after he developed a rash which developed after he been seen in discharged home with prescription for opiates. He has taken op iates numerous times in the past without any associated rash and the findings were interpreted to be contact dermatitis, according to Dr. Morillo's note. CT scan obtained on August 31, 2024 showed acute on chronic pancreatitis with pancreatic stent in place and no stones. Lab Data Attestation: I reviewed the patient's lab results. Labs: Lab Results 10/12/24 Range/Units 19:40 WBC 9.8 (4.0-11.0) 10^3/uL RBC 4.60 L (4.70-6.10) 10^6/uL Hgb 14.3 (14.0-18.0) g/dL Hct 41.5 L (42.0-54.0) % MCV 90.2 (80.0-94.0) fL MCH 31.1 (25.9-34.0) pg MCHC 34.5 (29.9-35.2) g/dL RDW 13.1 (11.0-15.0) % Plt Count 272 (150-450) 10^3/uL MPV 9.1 L (9.5-13.5) fL Neut % (Auto) 65.3 (43.0-75.0) % Lymph % (Auto) 23.0 (20.5-60.0) % Haakon % (Auto) 10.0 (1.7-12.0) % Eos % (Auto) 0.1 L (0.9-7.0) % Baso % (Auto) 0.7 (0.2-2.0) % Neut # (Auto) 6.4 (1.4-6.5) 10^3/uL Lymph # (Auto) 2.3 (1.2-3.8) 10^3/uL Haakon # (Auto) 1.0 H (0.3-0.8) 10^3/uL Eos # (Auto) 0.0 (0.0-0.7) 10^3/uL Baso # (Auto) 0.1 (0.0-0.1) 10^3/uL Abs Immat Gran (auto) 0.09 H (0.00-0.03) 10^3/uL Imm/Tot Granulo (auto) 0.9 H (0.0-0.5) % Sodium 134 L (136-145) mmol/L Potassium 3.8 (3.5-5.1) mmol/L Chloride 96 L (98-107) mmol/L Carbon Dioxide 26.8 (21.0-32.0) mmol/L Anion Gap 15.0 BUN 15.0 (7.0-18.0) mg/dL Creatinine 0.84 (0.70-1.30) mg/dL Est GFR ( Amer) >60 (>=60 mL/min/1.73m^2) Est GFR (Non-Af Amer) >60 (>=60 mL/min/1.73m^2) BUN/Creatinine Ratio 17.9 Glucose 124 H (74-106) mg/dL Calcium 9.1 (8.5-10.1) mg/dL Total Bilirubin 0.6 (0.2-1.0) mg/dL AST 61 H (15-37) U/L ALT 66 H (16-63) U/L Alkaline Phosphatase 80 (46-116) U/L Total Protein 8.1 (6.4-8.2) g/dL Albumin 4.2 (3.4-5.0) g/dL Globulin 3.9 g/dL Albumin/Globulin Ratio 1.1 Lipase 83.0 H (16.0-77.0) U/L Discharge Plan Discharge Chief Complaint: Abdominal Pain Clinical Impression: Abdominal pain, Chronic alcoholic pancreatitis Patient Disposition: Home, Self-Care Time of Disposition Decision: 20:47 Prescriptions / Home Meds: New hyoscyamine sulfate [Levsin/SL] 0.125 mg tablet, sublingual 0.125 mg PO Q6H PRN (Reason: abdominal pain) Qty: 20 0RF ondansetron 4 mg tablet,disintegrating 4 mg PO Q6H PRN (Reason: nausea and vomiting) Qty: 20 0RF famotidine [Pepcid] 20 mg tablet 20 mg PO BID Qty: 14 0RF No Action Zenpep 40,000-126,000- 168,000 unit capsule,delayed release(DR/EC) 2 cap PO TID Rx Instructions: administer with meals and/or snacks Print Language: Pakistani Instructions: Pancreatitis (ED), Diet for Stomach Ulcers and Gastritis (ED), Abdominal Pain (ED) Referrals: doreen [Other] - 1 week ADDISON MAGANA [Physician, Gastroenterology] - 1 week
[2024-10-12] MEDS: 0.9 % SODIUM CHLORIDE 1,000 ML 100 ML IV (19:43)
[2024-10-12] MEDS: HYOSCYAMINE SULFATE 0.125 MG TAB.SUBL SL (19:45)
[2024-10-12] MEDS: PANTOPRAZOLE SODIUM 40 MG VIAL IV (19:45)
[2024-10-12 20:06] LABS: Hematocrit 41.5 % (42.0-54.0); Hemoglobin 14.3 g/dL (14.0-18.0); Immature Granulocytes Abs Auto 0.09 10^3/uL (0.00-0.03); Immature Granulocytes Pct Auto 0.9 % (0.0-0.5); Lymphocytes Absolute Auto 2.3 10^3/uL (1.2-3.8); Mean Corpuscular HGB Conc 34.5 g/dL (29.9-35.2); Mean Corpuscular Hemoglobin 31.1 pg (25.9-34.0); Mean Corpuscular Volume 90.2 fL (80.0-94.0); Platelet Count 272 10^3/uL (150-450); Red Blood Count 4.60 10^6/uL (4.70-6.10); White Blood Count 9.8 10^3/uL (4.0-11.0)
[2024-10-12 20:20] LABS: Alanine Aminotransferase 66 U/L (16-63); Albumin Globulin Ratio 1.1; Albumin Level 4.2 g/dL (3.4-5.0); Alkaline Phosphatase 80 U/L (46-116); Anion Gap 15.0; Aspartate Amino Transferase 61 U/L (15-37); Blood Urea Nitrogen 15.0 mg/dL (7.0-18.0); Calcium 9.1 mg/dL (8.5-10.1); Carbon Dioxide 26.8 mmol/L (21.0-32.0); Chloride 96 mmol/L (98-107); Estimated GFR (African America >60 (>=60 mL/min/1.73m^2); Estimated GFR (Non-African Ame >60 (>=60 mL/min/1.73m^2); Globulin 3.9 g/dL; Glucose 124 mg/dL (74-106); Lipase 83.0 U/L (16.0-77.0); Potassium 3.8 mmol/L (3.5-5.1); Sodium 134 mmol/L (136-145); Total Protein 8.1 g/dL (6.4-8.2)
[2024-10-12] MEDS: ACETAMINOPHEN 500 MG TABLET 1000 MG PO (20:52)
[2024-10-12] MEDS: KETOROLAC TROMETHAMINE 30 MG/ML VIAL IVP (20:52)
[2024-10-12 21:02] VITALS: BP 153/91; PULSE 63; O2SAT 98
== END 2024-10-12 21:35 | disposition home or self-care (01) ==
PROVIDERS: Emergency Provider Emergency Medicine
DX: K86.0 Alcohol-induced chronic pancreatitis (principal); R10.9 Unspecified abdominal pain
CPT/HCPCS: 36415; 80053; 83690; 85025; 96374; 96375; 99285; J1885; J2405

== ENCOUNTER 2024-11-17 18:28 | Emergency (ER) | payer MEDICAID, SELFPAY ==
[2024-11-17 18:31] VITALS: BP 160/90; PULSE 61; TEMP 36.9; O2SAT 100; BMI 18.8
--- NOTE | 2024-11-17 18:40 | US_ITS ---
The [address] [address] Patient Name: BLUE CAO MRN: [id number] date: 1990 Sex: M Assigned Patient Location: ED.MAIN Current Patient Location: ED.MAIN Accession/Order Number: [id number] Exam Date: 11/17/2024 19:05 Report Date: 11/17/2024 20:04 At the request of: RICKY BOX DO Procedure: US right upper quadrant Ultrasound right upper quadrant INDICATION: Right upper quadrant pain, history of biliary stent COMPARISON: None FINDINGS: unremarkable liver echotexture. Unremarkable portal venous flow Gallbladder not visualized. Patient is not currently nothing by mouth. Pancreas nodular contour with echogenic foci possibly related to pancreatitis. Right kidney unremarkable in size without hydronephrosis. Common bile duct measures 3 mm. US/US right upper quadrant IMPRESSION: Nonvisualization of the gallbladder. Please correlate with surgical history. Pancreatic calcifications possibly sequelae of chronic pancreatitis. Unremarkable common bile duct. Impression dictated by: Claude Masters M.D. 11/17/2024 8:04 PM Dictation Location: [place] [address] Electronically authenticated by: [id number] Y Date: 11/17/2024 20:04
--- NOTE | 2024-11-17 18:40 | XR_ITS ---
The [place] [id number] Patient Name: BLUE CAO MRN: [id number] date: 1990 Sex: M Assigned Patient Location: ER Current Patient Location: ED.MAIN Accession/Order Number: [id number] Exam Date: 11/17/2024 18:55 Report Date: 11/17/2024 19:34 At the request of: RICKY BOX DO Procedure: XR abdomen min 2V 2 views abdomen INDICATION: Pancreatitis, evaluate first pancreas extent migration FINDINGS: Lung bases are clear. No free air.. Nonspecific nonspecific bowel gas pattern. There are calcific densities identified at the level of L3 noted.. No definite biliary stent identified within the gdray-zf-onwe. XR/XR abdomen min 2V IMPRESSION: No biliary stent identified within the lahhs-yt-gkjt correlation with any previous imaging may beneficial Impression dictated by: Claude Masters M.D. 11/17/2024 7:34 PM Dictation Location: [place] [address] Electronically authenticated by: [id number] Y Date: 11/17/2024 19:34
--- NOTE | 2024-11-17 19:06 | ED.GENADUL1 ---
HPI HPI - General Adult General Chief complaint: Abdominal Pain Stated complaint: Abdominal Pain Time Seen by Provider: 11/17/24 18:31 Source: patient Mode of arrival: walk-in Limitations: no limitations History of Present Illness HPI narrative: Patient is a 34-year-old male, history significant for chronic pancreatitis and alcohol use, presenting to the emergency department for evaluation of abdominal pain. Patient states he has had epigastric abdominal pain for the last 3 days, worsening today. He states he was still able to eat and drink earlier today, but feels like his abdominal pain is worsening. Patient states it feels like an exacerbation of his chronic pancreatitis. Of note, the patient states he was recently hospitalized at the end of October in [place]. At that time, he had an ERCP with removal of stones and placement of a pancreatic duct stent. He is supposed to get a KUB in a couple days as an outpatient to evaluate for pancreatic duct stent migration. He denies any fevers or chills. No chest pain or shortness of breath. No constipation or diarrhea. Related Data Home Medications ?Medication ?Instructions ?Recorded ?Confirmed fyvavs-rkgpuzyk-daetybl(pork) 2 cap PO TID 07/17/24 11/17/24 40,000-126,000-168k unit capsule,del rel (Zenpep) Allergies Allergy/AdvReac Type Severity Reaction Status Date / Time aspirin Allergy Unknown Unknown Verified 11/17/24 18:31 Opioid HPI Opioid Management Most Recent Opioid Data: Last Pain Scale 8 Today, 18:54 Review of Systems ROS Status of ROS 10 or more systems reviewed and unremarkable except as noted in history and below PFSH PFS Social History Little interest or pleasure in doing things: not at all Feeling down, depressed, or hopeless: not at all Exam Narrative Exam Narrative: CONSTITUTIONAL: Well-appearing, answering questions and following commands appropriately SKIN: Was warm and dry. EYES: No scleral icterus EARS, NOSE, THROAT: Moist oral mucosa. RESPIRATORY: Clear to auscultation bilaterally, no wheezes, crackles, or stridor, no use of accessory muscles CARDIOVASCULAR: Normal rate and regular rhythm. There is no S3, S4, murmur, rub. GASTROINTESTINAL: There is tenderness to palpation localized to the epigastrium. No right upper quadrant tenderness. Negative Mensah sign. No rebound tenderness or guarding. MUSCULOSKELETAL: No peripheral edema. NEUROLOGIC: Patient is awake and alert. Facies were symmetrical. Constitutional Vital Signs, click to edit/add: Last Vital Signs Temp 98.5 F 11/17/24 18:31 Pulse 61 11/17/24 18:31 Resp 16 11/17/24 18:31 BP 160/90 H 11/17/24 18:31 Pulse Ox 100 11/17/24 18:31 O2 Del Method Room Air 11/17/24 18:31 Course Vital Signs Vital signs: Vital Signs Temperature 98.5 F 11/17/24 18:31 Pulse Rate 61 11/17/24 18:31 Respiratory Rate 16 11/17/24 18:31 Blood Pressure 160/90 H 11/17/24 18:31 Pulse Oximetry 100 11/17/24 18:31 Oxygen Delivery Method Room Air 11/17/24 18:31 Temperature 98.5 F 11/17/24 18:31 Pulse Rate 61 11/17/24 18:31 Respiratory Rate 16 11/17/24 18:31 Blood Pressure 160/90 H 11/17/24 18:31 Pulse Oximetry 100 11/17/24 18:31 Oxygen Delivery Method Room Air 11/17/24 18:31 Medical Decision Making MDM Narrative Medical decision making narrative: Patient is a 34-year-old male, history significant for chronic pancreatitis, recent ERCP/pancreatic duct stent placement, and alcohol use, presenting to the emergency department for 3-day history of worsening epigastric pain. Vital signs on arrival are significant for mild hypertension, otherwise within normal limits. He is afebrile and hemodynamically stable. Examination was notable for localized tenderness palpation epigastrium without peritoneal signs. Negative Mensah sign. Differential diagnosis includes alcohol gastritis (his last drink was just a few days ago), pancreatitis, cholelithiasis, or complications related to recent pancreatic duct placement. IV was established and laboratory studies were obtained. Abdominal x-ray and right upper quadrant ultrasound were obtained. His pain was treated with 0.5 mg IV Dilaudid. My shift is coming to an end. Patient will be signed out to Dr. Morillo pending workup including laboratory/imaging studies. FINAL IMPRESSION: #Acute on chronic epigastric pain #History of chronic pancreatitis #History of recent pancreatic duct stent placement and ERCP DISPOSITION: Signed out to oncoming ED physician CONDITION: Stable Medical Records Medical records reviewed: Yes I reviewed the patient's medical records Discharge Plan Discharge Patient Disposition: Still a Patient
[2024-11-17 19:11] LABS: Hematocrit 40.8 % (42.0-54.0); Hemoglobin 13.8 g/dL (14.0-18.0); Immature Granulocytes Abs Auto 0.02 10^3/uL (0.00-0.03); Immature Granulocytes Pct Auto 0.2 % (0.0-0.5); Lymphocytes Absolute Auto 3.1 10^3/uL (1.2-3.8); Mean Corpuscular HGB Conc 33.8 g/dL (29.9-35.2); Mean Corpuscular Hemoglobin 31.2 pg (25.9-34.0); Mean Corpuscular Volume 92.3 fL (80.0-94.0); Platelet Count 416 10^3/uL (150-450); Red Blood Count 4.42 10^6/uL (4.70-6.10); White Blood Count 9.4 10^3/uL (4.0-11.0)
[2024-11-17 19:16] VITALS: BP 132/84; PULSE 58; O2SAT 100
[2024-11-17] MEDS: HYDROMORPHONE HCL 0.5 MG/0.5 ML SYRINGE IV (19:22)
[2024-11-17 19:27] LABS: Alanine Aminotransferase 85 U/L (16-63); Albumin Globulin Ratio 1.0; Albumin Level 3.9 g/dL (3.4-5.0); Alkaline Phosphatase 104 U/L (46-116); Anion Gap 13.7; Aspartate Amino Transferase 38 U/L (15-37); Blood Urea Nitrogen 13.0 mg/dL (7.0-18.0); Calcium 9.1 mg/dL (8.5-10.1); Carbon Dioxide 28.9 mmol/L (21.0-32.0); Chloride 102 mmol/L (98-107); Estimated GFR (African America >60 (>=60 mL/min/1.73m^2); Estimated GFR (Non-African Ame >60 (>=60 mL/min/1.73m^2); Globulin 4.0 g/dL; Glucose 106 mg/dL (74-106); Lipase 154.0 U/L (16.0-77.0); Potassium 3.6 mmol/L (3.5-5.1); Sodium 141 mmol/L (136-145); Total Protein 7.9 g/dL (6.4-8.2)
--- NOTE | 2024-11-17 20:15 | ED_ITS ---
HPI - Abdominal Pain General Chief Complaint: Abdominal Pain Stated Complaint: Abdominal Pain Time Seen by Provider: 11/17/24 18:31 Source: patient Mode of arrival: walk-in Limitations: no limitations History of Present Illness HPI narrative: This 34-year-old male with a history of chronic pancreatitis who recently had an ERCP and stent removal/ placement was signed out to me at shift change pending labs and ultrasound/x-ray. Who presents for evaluation of epigastric abdominal pain. He received a dose of Dilaudid prior to my arrival. I reviewed his labs. He has a normal white count and stable hemoglobin. Electrolytes were normal with a mild elevation in his ALT and AST. Lipase is mildly elevated at 154. X-ray of the abdomen does not show any biliary stents and ultrasound of the right upper quadrant shows calcifications but again no stents. The patient was seen and evaluated. He states that after the Dilaudid he felt very lightheaded but his pain is improved. He states he does not think that he had his gallbladder removed and called his mother for confirmation. His mother does not recall him ever having his gallbladder removed. He does not have any scars on his abdomen. The results of his x-ray and ultrasound were given to him. The ultrasound does show some calcifications. The ultrasound nor the x-ray show any sign of a gallbladder. He states the stents that he recently had placed were dissolvable. This is likely why they are not able to be visualized on imaging. He will be given a dose of Zofran and a liter of fluid and continually monitored. He appears comfortable with no active vomiting. OARRS was reviewed - he last had 25, 10mg Oxycodone prescribed on 11/05/24 [address] internal medicine dr in [place], [place]. He states that he was in [place] visiting a friend when he had an acute attack of abdominal pain. He was taken to [facility] where the stents that had been placed several years ago were removed and the dissolvable stents were placed. He does not currently have any follow-up planned for returning to the physician he saw at [facility]. He states he does not drive and his mother has to take him to his appointments. He was formerly seeing somebody in [place] but does not recall the name of that doctor and his insurance lapsed for a period of time so he does not have any follow-up with him. He will be discharged home with recommendation for close follow-up with his family physician where he may be referred to outpatient GI as deemed appropriate. Related Data Home Medications ?Medication ?Instructions ?Recorded ?Confirmed dlqzgk-lehsweyl-dliktjk(pork) 2 cap PO TID 07/17/24 40,000-126,000-168k unit capsule,del rel (Zenpep) Allergies Allergy/AdvReac Type Severity Reaction Status Date / Time aspirin Allergy Unknown Unknown Verified 11/17/24 18:31 PFSH PFSH Social History Little interest or pleasure in doing things: not at all Feeling down, depressed, or hopeless: not at all Exam Constitutional Vital Signs, click to edit/add: Last Vital Signs Temp 98.5 F 11/17/24 18:31 Pulse 58 L 11/17/24 19:16 Resp 20 11/17/24 19:16 BP 132/84 11/17/24 19:16 Pulse Ox 100 11/17/24 19:16 O2 Del Method Room Air 11/17/24 19:16 Course Vital Signs Vital signs: Vital Signs Temperature 98.5 F 11/17/24 18:31 Pulse Rate 61 11/17/24 18:31 Respiratory Rate 16 11/17/24 18:31 Blood Pressure 160/90 H 11/17/24 18:31 Pulse Oximetry 100 11/17/24 18:31 Oxygen Delivery Method Room Air 11/17/24 18:31 Temperature 98.5 F 11/17/24 18:31 Pulse Rate 58 L 11/17/24 19:16 Respiratory Rate 20 11/17/24 19:16 Blood Pressure 132/84 11/17/24 19:16 Pulse Oximetry 100 11/17/24 19:16 Oxygen Delivery Method Room Air 11/17/24 19:16 MDM - Abdominal Pain Medical Records Attestation: I reviewed the patient's medical records. Lab Data Attestation: I reviewed the patient's lab results. Labs: Lab Results 11/17/24 Range/Units 18:40 WBC 9.4 (4.0-11.0) 10^3/uL RBC 4.42 L (4.70-6.10) 10^6/uL Hgb 13.8 L (14.0-18.0) g/dL Hct 40.8 L (42.0-54.0) % MCV 92.3 (80.0-94.0) fL MCH 31.2 (25.9-34.0) pg MCHC 33.8 (29.9-35.2) g/dL RDW 12.4 (11.0-15.0) % Plt Count 416 (150-450) 10^3/uL MPV 8.9 L (9.5-13.5) fL Neut % (Auto) 56.9 (43.0-75.0) % Lymph % (Auto) 32.4 (20.5-60.0) % [place] % (Auto) 7.5 (1.7-12.0) % Eos % (Auto) 1.2 (0.9-7.0) % Baso % (Auto) 1.8 (0.2-2.0) % Neut # (Auto) 5.4 (1.4-6.5) 10^3/uL Lymph # (Auto) 3.1 (1.2-3.8) 10^3/uL [place] # (Auto) 0.7 (0.3-0.8) 10^3/uL Eos # (Auto) 0.1 (0.0-0.7) 10^3/uL Baso # (Auto) 0.2 H (0.0-0.1) 10^3/uL Abs Immat Gran (auto) 0.02 (0.00-0.03) 10^3/uL Imm/Tot Granulo (auto) 0.2 (0.0-0.5) % Sodium 141 (136-145) mmol/L Potassium 3.6 (3.5-5.1) mmol/L Chloride 102 (98-107) mmol/L Carbon Dioxide 28.9 (21.0-32.0) mmol/L Anion Gap 13.7 BUN 13.0 (7.0-18.0) mg/dL Creatinine 0.81 (0.70-1.30) mg/dL Est GFR ( Amer) >60 (>=60 mL/min/1.73m^2) Est GFR (Non-Af Amer) >60 (>=60 mL/min/1.73m^2) BUN/Creatinine Ratio 16.0 Glucose 106 (74-106) mg/dL Calcium 9.1 (8.5-10.1) mg/dL Total Bilirubin 0.4 (0.2-1.0) mg/dL Direct Bilirubin 0.1 (0.0-0.2) mg/dL AST 38 H (15-37) U/L ALT 85 H (16-63) U/L Alkaline Phosphatase 104 (46-116) U/L Total Protein 7.9 (6.4-8.2) g/dL Albumin 3.9 (3.4-5.0) g/dL Globulin 4.0 g/dL Albumin/Globulin Ratio 1.0 Lipase 154.0 H (16.0-77.0) U/L Imaging Data US - abdomen: Radiologist's impression: ITS Impressions Abdomen X-Ray 11/17/24 18:40 IMPRESSION: No biliary stent identified within the fwcmf-jt-hyje correlation with any previous imaging may beneficial Impression dictated by: Claude Masters M.D. 11/17/2024 7:34 PM Dictation Location: [facility]-29 Electronically authenticated by: [id number] Y Date: 11/17/2024 19:34 Upper Quadrant Ultrasound 11/17/24 18:40 IMPRESSION: Nonvisualization of the gallbladder. Please correlate with surgical history. Pancreatic calcifications possibly sequelae of chronic pancreatitis. Unremarkable common bile duct. Impression dictated by: Claude Masters M.D. 11/17/2024 8:04 PM Dictation Location: [facility]29 Electronically authenticated by: [id number] Y Date: 11/17/2024 20:04 Abdominal x-ray: Radiologist's impression: ITS Impressions Abdomen X-Ray 11/17/24 18:40 IMPRESSION: No biliary stent identified within the gctpi-mq-owzl correlation with any previous imaging may beneficial Impression dictated by: Claude Masters M.D. 11/17/2024 7:34 PM Dictation Location: [facility]29 Electronically authenticated by: [id number] Y Date: 11/17/2024 19:34 Upper Quadrant Ultrasound 11/17/24 18:40 IMPRESSION: Nonvisualization of the gallbladder. Please correlate with surgical history. Pancreatic calcifications possibly sequelae of chronic pancreatitis. Unremarkable common bile duct. Impression dictated by: Claude Masters M.D. 11/17/2024 8:04 PM Dictation Location: [facility] Electronically authenticated by: [id number] Y Date: 11/17/2024 20:04 Discharge Plan Discharge Chief Complaint: Abdominal Pain Clinical Impression: Chronic pancreatitis, Abdominal pain Patient Disposition: Home, Self-Care Time of Disposition Decision: 20:42 Condition: Good Prescriptions / Home Meds: No Action Zenpep 40,000-126,000- 168,000 unit capsule,delayed release(DR/EC) 2 cap PO TID Rx Instructions: administer with meals and/or snacks Print Language: Marshallese Instructions: Acute Abdominal Pain (ED), Chronic Abdominal Pain (DC) Referrals: Keya Hansen NP [Primary Care Provider] - 1 week Discharge Date/Time: 11/17/24 21:31
[2024-11-17] MEDS: 0.9 % SODIUM CHLORIDE 1,000 ML 1000 ML IV (20:26)
== END 2024-11-17 21:31 | disposition home or self-care (01) ==
PROVIDERS: Student in an Organized Health Care Education/Training Program; Emergency Provider Emergency Medicine; PCP Nurse Practitioner Family
DX: K86.1 Other chronic pancreatitis (principal); R10.13 Epigastric pain
CPT/HCPCS: 36415; 74019; 76705; 80053; 82248; 83690; 85025; 96374; 96375; 99285; J1171; J2405

== ENCOUNTER 2024-12-02 15:13 | Emergency (ER) | payer MEDICAID, SELFPAY ==
[2024-12-02] VITALS (17 sets, daily range): BP systolic 132–151; BP diastolic 90–108; PULSE 61–115; TEMP 36.9; O2SAT 93–100; BMI 19.0
--- OUTSIDE RECORDS SUMMARY | 2024-12-02 15:28 | XMS_ITS | Clinical Summary ---
Author Organization [facility] Address [address], [address] [place] [address] Care Team Providers Care Electrotype Finisher Name Role Phone Baron Serrato Primary Care Provider [phone] Allergies Active AllergyReactionsCriticalityNoted WytnQtfialjvGusnkmy47/31/2015 Unsure why he states mom told him to not take it Coonjtodw23/11/2023KetorolacOther (See Comments)Low12/22/2022 Medications MedicationSigDispense QuantityRefillsLast FilledStart DateEnd DateStatus Pancrelipase, Ivn-Udze-Nqme, (ZENPEP) 62375-861443 units CPEP Take 2 capsules by mouth in the morning, at noon, and at bedtime 240 capsule 4Active gabapentin (NEURONTIN) 100 MG capsule Indications:Alcoholism (HCC)Take 1 capsule by mouth 2 times daily for 180 days. Intended supply: 90 days 180 capsule 5Active Additional Information Patient not taking.Reported on 05/24/2024 ketoconazole (NIZORAL) 2 % shampoo Indications:Tinea versicolorApply topically daily as needed. 120 mL 5Active acetaminophen (TYLENOL) 500 MG tablet Take 2 tablets by mouth 2 times daily as needed for Pain 120 tablet 104/2Discontinued escitalopram (LEXAPRO) 10 MG tablet Indications:Current severe episode of major depressive 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 (HCC)Take 1 tablet by mouth daily 30 tablet 101/04/713829/iscontinued Active Problems ProblemNoted DateDiagnosed DateHospice care07/07/2024Pancreatitis, unspecified pancreatitis type04/25/2024hronic pancreatitis due to chronic alcoholism 04/25/2024lcohol abuse03/24/2024Normocytic edakpf5103/23/2024Proteinuria 03/23/20244516Kexshrgjhrike42/12/2024Moderate cigarette smoker (10-19 per day) 11/22/20237164Dpadxqxqqfrop93/12/2024oor uqprmgxzol21/11/2024Vapes nicotine containing pqyafbcpo19/05/2023lcohol-induced acute pancreatitis without infection or pxmflbdy05/04/2023cute on chronic mslharltqnqr03/06/2023lcohol use nvvfuejj66/06/6381Irihgibhfws56/06/2023lcohol-induced acute pancreatitis 07/16/2022urrent severe episode of major depressive disorder without psychotic features without prior krczylm7901/12/2021 Assessment & Plan (02/12/2024 9:31 AM EST): Chronic, at goal (stable), continue current treatment plan Bcpjgdj0901/12/2021losed posterior dislocation of elbow, left, wmybcxd8408/30/2020 Alcohol-induced chronic ztitvkhddxmu48/21/2021Herpes simplex virus infection 08/30/2020Need for prophylactic vaccination against Streptococcus pneumoniae (pneumococcus)08/30/2020 Resolved Problems ProblemNoted DateDiagnosed DateResolved DateAlcohol induced acute pancreatitis ute pancreatitis, unspecified complication status, unspecified pancreatitis typeMalnutrition11/21/2023 02/12/2024Pancreatic duct nuiece99Healthcare maintenance Immunizations ImmunizationAdministration DatesNext DueInfluenza, FLUARIX, FLULAVAL, FLUZONE (age 6 mo+) and AFLURIA, (age 3 y+), Quadv PF, 0.5mL11/23/2016Pneumococcal, PPSV23, PNEUMOVAX 23, (age 2y+), SC/IM, 0.5mL08/30/2020TDaP, ADACEL (age 10y- 64y), BOOSTRIX (age 10y+), IM, 0.5mL10/07/2023,05/08/2020 Family History Medical HistoryRelationNameCommentsNo Known ProblemsFatherNo Known Problems MotherBreast CancerPaternal AuntCancerPaternal GrandfatherColon CancerPaternal GrandfatherHeart DiseasePaternal GrandfatherRelationNameStatusCommentsFather AliveMotherAlivePaternal AuntPaternal Grandfather Social History Tobacco UseTypesPacks/DayYears UsedDateSmoking Tobacco: FormerCigarettes0.517 02/10/2005 - 02/10/2022Smokeless Tobacco: Never Tobacco Cessation:Counseling Given: Yes Alcohol UseStandard Drinks/WeekCommentsNot Currently0 (1 standard drink = 0.6 oz pure alcohol)[facility] UtilitiesAnswerDate RecordedIn the past 12 months has the [employer], oil, or water ICU [employer] threatened to shut off services in your home?No04/26/2024UDIT-CAnswerDate RecordedQ1: How often do you have a drink containing alcohol?Never10/07/2023Q2: How many drinks containing alcohol do you have on a typical day when you are drinking?Patient does not drink10/07/2023Q3: How often do you have six or more drinks on one occasion?Never10/07/2023Overall Financial Resource Strain (CARDIA)AnswerDate RecordedHow hard is it for you to pay for the very basics like food, housing, medical care, and heating?Not hard at all02/12/2024PHQ-2AnswerDate RecordedPHQ-9 Total Olihe798Hunger Vital SignAnswerDate RecordedWithin the past 12 months, you worried that your food would run out before you got the money to buymore.Never true04/26/2024Within the past 12 months, the food you bought just didn't last and you didn't have money to get more.Never true04/26/2024PRAPARE - TransportationAnswerDate RecordedIn the past 12 months, has lack of transportation kept you from medical appointments or from getting medications?No04/26/2024In the past 12 months, has lack of transportation kept you from meetings, work, or from getting things needed for daily living?04/26/2024Housing Stability Vital SignAnswerDate RecordedIn the last 12 months, was there a time when you were not able to pay the mortgage or rent on time?No04/26/2024In the past 12 months, how many times have you moved where you were living?t any time in the past 12 months, were you homeless or living in a mcfp (including now)?No04/26/2024 Food InsecurityAnswerDate RecordedWithin the past 12 months, you worried that your food would run out before you got the money to buymore.Within the past 12 months, the food you bought just didn't last and you didn't have money to get more.Interpersonal Safety Domain Source: IP Abuse ScreeningAnswerDate RecordedPhysical xbhcgUnjlfm75/16/2025Verbal abuseDenies 04/25/2024Emotional houetXncetp58/16/2025Financial aqvppDwfqdl68/16/2025Sexual npaujMiceaj32/16/2025Sex and Gender InformationValueDate RecordedSex Assigned at BirthNot on fileLegal NhaWjcv3403/22/2012 1:02 PM ESTGender IdentityNot on file Sexual OrientationNot on file Last Filed Vital Signs Vital SignReadingTime TakenCommentsBlood Ywjczfdk286/6404/ 9:23 AM EDT Cexbs3567 9:23 AM EJOHkxtratrttp38.8 ??C (98.2 ??F)04/28/2024 8:43 AM EDTRespiratory Xzxz827804/27/2024 8:47 PM EDTOxygen Inpsjubyzu55%05/24/2024 9:23 AM EDTInhaled Oxygen Concentration--Flpvyd30.4 kg (126 lb 9.6 oz)05/24/2024 9:23 AM HVKQrmxkn373.2 cm (5' 7.01 )05/24/2024 9:23 AM EDTBody Mass Index19.82 05/24/2024 9:23 AM EDT Plan of Treatment Health MaintenanceDue DateLast DoneCommentsFlu asfstuaIluoqljggkwu21/14/2017 Pneumococcal 0-49 years OfzgmqbRuwttaelhebb93/21/2021HIV screenDiscontinued 09/19/2020TaP/Tdap/Td nxjistrHgzxbqmjtmwp74/27/2024, 05/08/2020Hepatitis C pgrzhfUmyewytnfbzj08/19/2024, 09/19/2020epression MonitoringDiscontinued 02/25/2024, 02/25/2024 Medical Devices ImplantedTypeAreaManufacturerDevice IdentifierShelf Expiration DateModel / Serial / LotStent Pancreas 7fr L12cm Plas Str Ld Katarina Trailing Radpq - [id number] Implanted:Qty: 1 on 12/05/20[facility]:Biliary/Pancreatic/IliacN/A: PancreasProtean Payment [id number] / / [id number] Pancreas 7fr L7cm Plas Str Ld Katarina Trailing Radpq Mrk - [id number] Implanted:Qty: 1 on 12/05/2023 [facility]:Biliary/Pancreatic/IliacN/A: DuodenumProtean Payment [id number]/12/[id number] / / [id number] Panc Stent Strt Lb 8xiq37ga - [id number] Implanted:Qty: 1 on 12/05/2023 [facility]: PancreasSpeek-[id number] / / [id number] Pancreas L7cm Od7fr Polymer Pgtl Ld Katarina Ld Radpq Mrk - [id number] Implanted:Qty: 1 on 10/17/20[facility]: OtherSpeek-WD12/20/[id number] / / [id number] Pancreas 5fr L7cm 0.035in For Drn Obstructed Pancreas - [id number] Implanted:Qty: 1 on 10/17/2022 [facility]: [employer]-WD10/30/2024G22360 / / [id number] Del 7fr Pancreas Naviflex Rx - [id number] Implanted:Qty: 2 on 01/22/2023 [facility]: [facility] SCIENTIFIC-WD05/19/[id number] / / [id number] Pancreas L9cm Od7fr Polymer Pgtl Ld Katarina Ld Radpq Mrk - [id number] Implanted:Qty: 1 on 01/22/2023 [facility]: [facility] [employer]ENTIFIC-WD04/29/[id number] / / [id number] Pancreas L7cm Od7fr Polymer Pgtl Ld Katarina Ld Radpq Mrk - [id number] Implanted:Qty: 1 on 01/22/2023 [facility]: [facility] [place]-WD04/29/[id number] / / [id number] Pancreas L7cm Od5fr Polymer Pgtl Ld Katarina Ld Radpq Mrk - [id number] Implanted:Qty: 1 on 01/22/2023 by [facility]: [facility] [place]-WD06/02/[id number] / / [id number] IdentifierShelf Expiration DateModel / Serial / LotKit Pancreas Stnt 5fr L7cm Plas Str No Ld Katarina Trailing - [id number] Explanted:Qty: 1 on 10/17/2022 at [facility] [place]-WD12/08/[id number] / / [id number]:Wrong size Procedures Procedure NamePriorityDate/TimeAssociated DiagnosisCommentsHEPATITIS PANEL, UPXXCBWUE64/19/2024 9:13 PM EDT HIV MCSPNVSubnihe07/10/2021 10:05 AM EDT Healthcare maintenance from Last 3 Months or Most Recently Relevant to Health Maintenance Results * Hepatitis Panel, Acute (10/30/2023 9:13 PM EDT)ComponentValueRef RangeTest MethodAnalysis TimePerformed AtPathologist SignatureHepatitis B Surface Ag TQMUAYHOWGGVXFFMVIWPWV13/19/2024 9:13 PM EDTMERCY LABORATORIESHepatitis C Ab VNAFYMGZFUAGWOPALTBTDH12/19/2024 9:13 PM EDTMERCY LABORATORIESComment: ? The hepatitis C procedure used in our laboratory is a Chemiluminescent test specific for three recombinant HCV antigens. ??A negative anti-HCV result indicates that the antibodies to hepatitis C virus are not present at this time. Individuals with reactive anti-HCV should be considered infected and infectious until proven otherwise. ??Confirmation of all equivocal or reactive results is recommended by ordering HCV RNA by PCR. Hep B Core Ab, OxQIRANSDEWXIVUNYVOXFUPZE04/19/2024 9:13 PM EDTMERCY LABORATORIES Hep A BvFZJQASOVGPJHWGBXWXJWQFB57/19/2024 9:13 PM EDTMERCY LABORATORIESSpecimen (Source)Anatomical Location / LateralityCollection Method / VolumeCollection TimeReceived TimeBLOOD SPECIMEN / Izmyzwm8110/30/2023 9:13 PM EDT10/30/2023 9:16 PM EDT Narrative Authorizing ProviderResult TypeResult StatusMatthew Miguel Hooks PA-C IMMUNOLOGY ORDERABLESFinal ResultPerforming OrganizationAddressCity/State/ZIP CodePhone Number [facility] [address] [place] [address], [facility] [phone] [facility] [address] [place] [address], [facility] [phone] * HIV Screen (09/19/2020 10:05 AM EDT)ComponentValueRef RangeTest MethodAnalysis TimePerformed AtPathologist SignatureHIV Ag/RtMMZQOXWBNUVMABFXYYJVOR81/10/2021 10:05 AM EDTMERCY LABORATORIESComment: No laboratory evidence of HIV infection. ??If acute HIV infection is suspected, consider testing for HIV-1 RNA. Specimen (Source)Anatomical Location / LateralityCollection Method / Volume Collection TimeReceived TimeBLOOD SPECIMEN / Dasodef3909/19/2020 10:05 AM EDT 09/19/2020 10:21 AM EDT Narrative Authorizing ProviderResult TypeResult StatusArvind Datt MDIMMUNOLOGY ORDERABLES Final ResultPerforming OrganizationAddressCity/State/ZIP CodePhone Number [employer] [address] [id number] [phone] from Last 3 Months or Most Recently Relevant to Health Maintenance Insurance Advance Directives * Full Code (Latest Code Status on File) Date ActivatedDate InactivatedComments04/25/2024 8:22 PM04/28/2024 1:01 PM * Full Code Date ActivatedDate InactivatedComments03/22/2024 10:50 PM2 8:21 PM * Full Code Date ActivatedDate TthlbxuqeucQwnyjnyx26/10/2024 7:43 PM10 3:31 PM * Full Code Date ActivatedDate OntfayknupdWotwbaev24/8/2024 11:06 PM10 7:41 PM * Full Code Date ActivatedDate HujdomtdhtdCfkaxznl25/27/2023 6:47 AM12/07/2022 8:01 PM Care Teams Team MemberRelationshipSpecialtyStart [place] [address] [place] [address] PCP - GeneralPhysician Assistant02/12/24
--- OUTSIDE RECORDS SUMMARY | 2024-12-02 15:28 | XMS_ITS | Clinical Summary ---
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 Take with meals.5Active ondansetron ODT (Zofran-ODT) 4 MG disintegrating tablet Take 4 mg by mouth every 6 (six) hours if fasvla135Active mupirocin (Bactroban) 2 % ointment Indications:Chronic rhinitisApply to each side of the nose twice daily for one month 15 g 1105Active Active Problems ProblemNoted DateDiagnosed DateAlcohol use jvdqbwru89/11/2023Alcohol-induced acute pancreatitis (HHS-HCC)12/21/2022Sinus /11/2023igarette nicotine dependence without kthqogsknnve59/15/2017History of alcohol abuse 11/24/2016History of bnqlwggiuvtn76/15/2017Acute pancreatitis without necrosis or infection, unspecified (HHS-HCC)09/19/2016 Encounters DateTypeDepartmentCare FesfJwucizhfmng51/07/2025 8:40 AM EDTOffice Visit [facility] [address] [place] [address] Melanie Julio MD Chronic rhinitis (Primary Dx); Nasal valve /07/2025amboo flowsheet [facility] [address] [place] [id number] Melanie Julio MD 11/16/2024Travelfrom Last 3 Months Immunizations ImmunizationAdministration DatesNext DueInfluenza, injectable, quadrivalent, preservative free11/23/2016Pneumococcal Polysaccharide GSSO0301Tdap 09/10/2024,10/07/2023,05/08/2020 Family History RelationNameStatusCommentsFatherAliveMotherAlive Social History Tobacco UseTypesPacks/DayYears UsedDateSmoking Tobacco: NeverSmokeless Tobacco: Never Tobacco Cessation:Counseling Given: Not Answered Comments:Does vape Alcohol UseStandard Drinks/WeekCommentsYes0 (1 standard drink = 0.6 oz pure alcohol)almost dailySex and Gender InformationValueDate RecordedSex Assigned at BirthNot on fileLegal BzyStpi9507/28/2024 3:39 PM EDTGender IdentityNot on file Sexual OrientationNot on file Last Filed Vital Signs Vital SignReadingTime TakenCommentsBlood Ahugtuqz921/8610 8:41 AM EDT Higxr703111/16/2024 8:41 AM EDTTemperature--Respiratory Rate--Oxygen Saturation-- Inhaled Oxygen Concentration--Lbzjic79.9 kg (121 lb)11/16/2024 8:41 AM EDTHeight 170.2 cm (5' 7 )11/16/2024 8:41 AM EDTBody Mass Index18.9511/16/2024 8:41 AM EDT Plan of Treatment Not on file Insurance Care Teams Team MemberRelationshipSpecialtyStart DateEnd Date Osmar Elizabeth MD [address] [place] [id number] PCP - GeneralNurse Gtpnrgtpvtdc88/7/25
--- OUTSIDE RECORDS SUMMARY | 2024-12-02 15:28 | XMS_ITS | Clinical Summary ---
Author Organization [employer] Address [id number] [address] 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 Role Phone No Pcp, No Pcp Primary Care Provider Unavailabl e Allergies Active AllergyReactionsCriticalityNoted BywqQcmailkxAskqcus46/15/2017Ibuprofen 8880JuaoldnusAwhmtjlcAxi02/12/2023 Medications MedicationSigDispense QuantityRefillsLast FilledStart DateEnd DateStatus weuxqg-rdprlhhn-ffibswq 40,000-126,000- 168,000 unit capsule,delayed release(DR/EC) Take 80,000 Units by mouth in the morning and 80,000 Units at noon and 80,000 Units in the evening.Take with meals.4Active ondansetron ODT (ZOFRAN ODT) 4 mg disintegrating tablet Dissolve 1 tablet (4 mg total) on tongue 3 (three) times a day as needed for nausea for up to 3 doses. 3 tablet 5Active Active Problems ProblemNoted DateDiagnosed DateAlcohol-induced acute pancreatitis, unspecified complication lqgbup3312/21/2022Sinus lqccxpxcurq08/11/2023lcohol use disorder 12/21/2022cute on chronic cuflioxqcyms34/19/2023Alcohol-induced chronic rviktonmmnfw58/21/2021H/O acute qmccztorttgj61/29/2018Acute pancreatitis 02/19/2017History of alcohol abuse11/24/2016H/O chronic vrrabtygpmew50/15/2017 Cigarette nicotine dependence without mrsulvqubibd29/15/3467Vldwdyr45/15/2017 Vmopuhtazdig43/10/2017 Resolved Problems ProblemNoted DateDiagnosed DateResolved DatePancreatic duct gelpfw0910/17/2022 11/25/20230480Ritlnjuamgk79urrent severe episode of major depressive disorder without psychotic features without prior usrbyqz8301/12/2021 11/25/20234637Rexzdqr34losed posterior dislocation of elbow, left, jcxwejl61Herpes simplex virus uysrswnzw38/21/2021 11/25/2023lcohol-induced acute gvoaothgepng98Alcohol abuse Genital herpes Immunizations ImmunizationAdministration DatesNext DueInfluenza, Injectable, quadrivalent (PF) 11/23/2016Pneumococcal Axyevsddbrojqr14/21/9439Hjyx09/29/2021 Family History Medical HistoryRelationNameCommentsAsthmaBrother 1No Known ProblemsBrother 2 Heart diseaseFatherVernHypertensionFatherVernOtherFatherVernHeart Stent HyperlipidemiaMotherJayneHypertensionPaternal GrandfatherNo Known ProblemsSister RelationNameStatusCommentsBrother 1AliveBrother 2AliveDaughter 1AliveDaughter 2 AliveDaughter 3AliveFatherVernAliveMotherJayneAlivePaternal GrandfatherAlive Paternal GrandmotherDeceasedSisterAlive Social History Tobacco UseTypesPacks/DayYears UsedDateSmoking Tobacco: Every GfuRysksnntvn585 Smokeless Tobacco: Never Tobacco Cessation:Ready to Q uit: Not Asked; Counseling Given: Not Answered Alcohol UseStandard Drinks/XigzLkthojqpGfl88 (1 standard drink = 0.6 oz pure alcohol)12 pack beer per dayAUDIT-CAnswerDate RecordedFrequency of Alcohol VnpqyhrvdnfMnhka47/23/2020Average Number of DrinksNot on file12/03/2019Frequency of Binge DrinkingNot on file12/03/2019PHQ-2AnswerDate RecordedTotal Score3 12/21/2022Housing InstabilityAnswerDate RecordedAre you worried or concerned that in the next two months you may not have stable housing that you own, rent or stay in as a part of a household?No3ChildcareAnswerDate Recorded YwunhgvojXpzwsbi05/11/2019EmploymentAnswerDate RecordedEmploymentUnknown 07/21/2018Hunger ScreeningAnswerDate RecordedWithin the past 12 months we worried whether our food would run out before we got money to buy more.Never True07/28/2024Within the past 12 months the food we bought just didn't last and we didn't have money to get more.Never True07/28/2024Purpose - LifeAnswerDate RecordedPurpose and direction in vzgqJtekpee76/11/2021ex and Gender Information ValueDate RecordedSex Assigned at GoerjSrfm46/09/2024 12:02 PM ESTLegal SexMale 09/13/2014 9:41 PM EDTGender VmwxadlrWuwq80/09/2024 12:02 PM ESTSexual OrientationNot on file Last Filed Vital Signs Vital SignReadingTime TakenCommentsBlood Wwpkjqnj783/8149607/28/2024 6:43 PM EDT Jtrvh0853/18/2025 6:43 PM FRRVxzylfsugtx93.9 ??C (98.4 ??F)07/28/2024 4:13 PM EDTRespiratory Aycg3942 6:43 PM EDTOxygen Eycvwmfuxt705%07/28/2024 6:43 PM EDTInhaled Oxygen Concentration--Pvrlii66.9 kg (121 lb)07/28/2024 4:13 PM EDT Vhhnrm205.2 cm (5' 7 )07/28/2024 4:13 PM EDTBody Mass Index18.95007/28/2024 4:13 PM EDT Plan of Treatment Health MaintenanceDue DateLast DoneCommentsTobacco Yjprbiloqs54/04/1989 Depression Ijjmqzdmp21Influenza Dkhpugn14 Adult BMI Kzxraxyja82Tobacco Dutrggvsh42 DTaP,Tdap and Td Vaccines (3 - Td or Tdap)2024, 05/08/2020 Goals GoalPatient Goal TypeAssociated ProblemsRecent ProgressPatient-Stated?Author safe discharge Marifer Alas LSW Note: Evaluation of progress towards goal: Home, self care. Patient says he plans to quit drinking without professional support or peer support. SW used Motivational Interviewing to help patient identify goals and motivation for change. He says his primary motivation to make this change is to protect therelationship he has with his children. He also pays child support and time in the hospital is time a way from working to support his children. He [...] time. Medical Devices Not on file Insurance Advance Directives * Full Code (Latest Code Status on File) Date ActivatedDate HeklcjaqbsbQseuqupn27/11/2023 1:38 AM11 4:42 PM * Full Code Date ActivatedDate InactivatedComments03/31/2022 9:15 PM2 7:13 PM * Full Code Date ActivatedDate MwqhrdtazkzGxrnetyb35/12/2017 4:40 PM10 1:51 PM * Full Code Date ActivatedDate InactivatedComments09/19/2016 5:42 PM09/24/2016 7:47 PM Care Teams Team MemberRelationshipSpecialtyStart DateEnd Date No Pcp, [place] [address] [facility] Wgvytoxt33/[facility]/24
--- OUTSIDE RECORDS SUMMARY | 2024-12-02 15:28 | XMS_ITS | Clinical Summary ---
Author Organization [facility] Address [address] [place] [address] Care Team Providers Care Dental Billing Specialist Name Role Phone No, Physician Primary Care Provider Unavailabl e Allergies Active AllergyReactionsCriticalityNoted DateCommentsAspirinOther (See Comments) 07/25/2016 Pts mom says they can not have but pt is unsure of why Medications MedicationSigDispense QuantityRefillsLast FilledStart DateEnd DateStatus auyxld-xkwxfhwt-wehrvlz 40,000-126,000- 168,000 unit CpDR Take 2 capsules by mouth 3 (three) times a day with meals . 180 capsule 5Active oxyCODONE-acetaminophen (PERCOCET) 10-325 mg per tablet Indications:Chronic pancreatitis due to chronic alcoholism (HCC)Take 1 (one) tablet by mouth every 6 (six) hours as needed . 25 tablet 5Active ondansetron (ZOFRAN-ODT) 4 MG disintegrating tablet Dissolve 1 (one) tablet (4 mg total) on top of tongue every 6 (six) hours as needed for nausea . 20 tablet 5Active hsgjro-bkixpjvo-zwxtlvr 40,000-126,000- 168,000 unit CpDR Take 2 capsules by mouth 3 (three) times a day with meals . Discontinued Active Problems ProblemNoted DateDiagnosed DatePancreatic pain11/01/2024 Assessment & Plan (11/01/2024 12:15 PM EDT): Reason For Hospitalization: ICD-10 K86.89 Christoph Jones presented 10/31/2024 Chronic pancreatitis due to chronic kssuwmosmt81/21/2025 Assessment & Plan (11/01/2024 3:36 PM EDT): Christoph Jones is a 34 yr old M with PMHx significant for AUD, chronic pancreatitis, prior ERCP w/PD stent placement, presented to ED in [facility] 10/30 with nausea and epigastric abd pain. CT imagingnoted esophageal thickening and PD stent. Transferred to [facility] and GI c/f chronic pancreatitis, hx ofPD stent, PD dilation. - CT abd/pelvis w/ IVcontrast (10/30/24, OSH): Mild prominence of the wall of the distal esophagus for which esophagitis should be excluded clinically.GB is not visualized and may be contrasted vs surgically absent. Liver is unremarkable. Findings are c/w sequela of chronic pancreatitis. Pancreatic stent extending from mid pancreas into the duodenum w/mild dilation of the PD in region of the pancreatic body/tail. Marked thickening of the urinary bladder wall. Non obstructing calculi within the bilateral kidneys. - Lipase nl; LFTs with TB 0.3, AP 178, AST 84, ALT 98 - today: TB 0.9, AP 100, AST 47, ALT 64 - no leukocytosis or fever - no AC/AP use Impression/plan: - Chronic pancreatitis, PD stent- Recommend obtaining CT pancreas protocol to evaluate for PD stricture, mass, etc. Further recommendations to follow CT. Recommend eventual EGD to evaluate esophagealthickening noted on CT. - f/u CT pancreas protocol - timing of PD stent removal vs replacement pending CT findings - continue supportive care - trend LFTs - recommend thiamine/folate, monitor for etoh withdrawal - recommend etoh cessation and c/s to CM/SW for community cessation resources - case/plan discussed with Dr. Gottlieb Encounters DateTypeDepartmentCare GhqsYkaewpnrzcq88/23/2025 1:29 PM EDTAnesthesia Event [facility] [address] [place] [address] Ally Mustafa MD 11/02/2024 12:09 PM EDT - 11/02/2024 1:09 PM EDTSurgery [facility] [address] [place] [address] Denzel Anthony MD ENDOSCOPIC RETROGRADE CHOLANGIOPANCREATOGRAPHY with stone removal and kjgmxadrzzrvag22/23/2898Pnxpix67/21/2025 1:17 PM EDT - 11/05/2024 5:25 PM EDT Hospital Encounter [facility] [address] [place] [address] Physicians, [facility] Danielito Villasenor MD Zamoyski, Baron Moore, Discharge Disposition: Homefrom Last 3 Months Social History Tobacco UseTypesPacks/DayYears UsedDateSmoking Tobacco: FormerCigarettes Smokeless Tobacco: NeverAlcohol UseStandard Drinks/IovdXweubqtyZqw50 (1 standard drink = 0.6 oz pure alcohol)[facility] UtilitiesAnswerDate RecordedIn the past 12 months has the electric, gas, oil, or water company threatened to shut off services in your home?No10/31/2024Humiliation, Afraid, Rape, and Kick questionnaireAnswerDate RecordedWithin the last year, have you been afraid of your partner or ex-partner?No10/31/2024Within the last year, have you been humiliated or emotionally abused in other ways by your partner or ex-partner?No 10/31/2024Within the last year, have you been kicked, hit, slapped, or otherwise physically hurt by your partner or ex-partner?No10/31/2024Within the last year, have you been raped or forced to have any kind of sexual activity by your part ner or ex-partner?No10/31/2024Hunger Vital SignAnswerDate RecordedWithin the past 12 months, you worried that your food would run out before you got the money to buymore.Never true10/31/2024Within the past 12 months, the food you bought just didn't last and you didn't have money to get more.Never true 10/31/2024PRAPARE - TransportationAnswerDate RecordedIn the past 12 months, has lack of transportation kept you from medical appointments or from getting medications?No10/31/2024In the past 12 months, has lack of transportation kept you from meetings, work, or from getting things needed for daily living?No 10/31/2024Housing Stability Vital SignAnswerDate RecordedIn the last 12 months, was there a time when you were not able to pay the mortgage or rent on time?Yes 10/31/2024In the past 12 months, how many times have you moved where you were living?t any time in the past 12 months, were you homeless or living in a senior care (including now)?No10/31/2024Sex and Gender InformationValueDate RecordedSex Assigned at BirthNot on fileLegal XccUmcd4210/30/2024 5:36 AM EDT Gender IdentityNot on fileSexual OrientationNot on file Last Filed Vital Signs Vital SignReadingTime TakenCommentsBlood Vtztqkcm898/8411/05/2024 3:43 PM EDT Refxv723911/05/2024 3:43 PM MSTOekfxkemnhg67.7 ??C (98.1 ??F)11/05/2024 8:21 AM EDTRespiratory Ayql524411/05/2024 4:05 PM EDTOxygen Qkwrradtwt56%11/05/2024 4:05 PM EDTInhaled Oxygen Concentration--Bwnxxc80.5 kg (118 lb)11/02/2024 12:47 PM IMJWzmwyu506.2 cm (5' 7 )11/02/2024 12:47 PM EDTBody Mass Index18.48011/02/2024 12:47 PM EDT Plan of Treatment Health MaintenanceDue DateLast DoneCommentsWellness Visit04/14/1991Depression Screening/Follow-Up (PHQ-2/9)2000HIV Wxwuwqlfr97/04/2004Hepatitis C Hznijlbtx13/04/2007COVID-19 Vaccine ( season)2024Influenza Vaccine (#1)Tetanus: Every 10yrs (RETIRED)09/10/2034 09/10/2024, 10/07/2023, 1Pneumococcal VaccineAged Out08/30/2020No longer eligible based on patient's age to complete this topic Medical Devices ImplantedTypeAreaManufacturerDevice IdentifierShelf Expiration DateModel / Serial / LotStent 5fr 3cm Pancreatic Zimmon - [id number] Implanted:Qty: 1 on 11/02/2024 [facility]: PancreasCOOK [id number] / / [id number] Procedures Procedure NamePriorityDate/TimeAssociated OcjztpnozIplzwlmrEXM88/29/2025 4:11 PM NIQROOSdypiov74/26/2025 6:14 AM EDT MAGNESIUM DJMHOQcusnor31/26/2025 6:14 AM EDT COMPREHENSIVE METABOLIC GCZNDGrfbwfm16/26/2025 6:14 AM EDT FEGXcvvaay37/25/2025 5:41 AM EDT MAGNESIUM MSHYHGyxomrg32/25/2025 5:41 AM EDT COMPREHENSIVE METABOLIC YGQRXOijsxjy86/25/2025 5:41 AM EDT LIPASEAdd-On11/03/2024 5:50 AM EDT JXOMotojiy90/24/2025 5:50 AM EDT MAGNESIUM GQYMOBavwioh08/24/2025 5:50 AM EDT COMPREHENSIVE METABOLIC CZMKHXnwtxxq40/24/2025 5:50 AM EDT XR OR FLUOROSCOPY LJHDZkumxgi76/23/2025 2:26 PM EDT AIRWAY RIENmddyzn06/23/2025 1:45 PM EDT [facility] ERCP DX COLLECTION SPECIMEN BRUSHING/TXCGWEP2411/02/2024 1:29 PM EDT Chronic pancreatitis due to chronic alcoholism (HCC) ERCP11/02/2024 1:14 PM EDTMAGNESIUM NRVRMKnjrvdk06/23/2025 7:06 AM EDT PT/LZLZodjwon14/23/2025 7:06 AM EDT COMPREHENSIVE METABOLIC AVNPNFttygcn87/23/2025 7:06 AM EDT QMSNrpfdmn62/23/2025 7:[address] ABDOMEN WITH AND WITHOUT URLGMAMMTFMR12/22/2025 12:49 PM EDT XQQSSYWdtcfwa89/22/2025 7:29 AM EDT VPQImyexhj81/22/2025 7:29 AM EDT COMPREHENSIVE METABOLIC FBEBSNwsflpq92/22/2025 7:29 AM EDT RUBGMQIZEJIrthgaw94/21/2025 11:33 PM EDT DRUGS OF ABUSE SCREEN, HEGJHUfvrwrw88/21/2025 11:33 PM EDT ECG 12-SGCBUfaljky89/21/2025 4:21 PM EDT from Last 3 Months Results * EKG (11/08/2024 4:11 PM EDT)Specimen (Source)Anatomical Location / Laterality Collection Method / VolumeCollection TimeReceived Time Narrative Authorizing ProviderResult TypeResult StatusTimothy S Doone MDSCANNED ORDERS Final Result * (ABNORMAL) CBC (11/05/2024 6:14 AM EDT) Only the most recent of5 resultswithin the time period is included. ComponentValueRef RangeTest MethodAnalysis TimePerformed AtPathologist Signature WBC5.314.50 - 11.00 K/[facility]11/05/2024 7:20 AM [facility] RBC4.44(L)4.50 - 5.90 M/[facility]11/05/2024 7:20 AM [facility] MOOZdkjjgeamu18.813.5 - 17.5 g/dL11/05/2024 7:20 AM [facility] QNZNvjudfqvua14.741.0 - 53.0 %11/05/2024 7:20 AM [facility] OULMJY64.280.0 - 100.0 fL11/05/2024 7:20 AM [facility] TXQBCP26.126.0 - 34.0 pg11/05/2024 7:20 AM [facility] FQVONEX86.331.0 - 37.0 g/dL11/05/2024 7:20 AM [facility] VGGRzilsbjqz296664 - 400 K/mcL11/05/2024 7:20 AM [facility] LABRDW - CV12.811.6 - 14.8 %11/05/2024 7:20 AM [facility] PTASSI41.19.4 - 12.4 fL11/05/2024 7:20 AM [facility] LABNucleated RBC0.0%11/05/2024 7:20 AM [facility] LABNucleated RBC Abs0.000.00 - 0.00 K/mcL11/05/2024 7:20 AM [facility] LABSpecimen (Source)Anatomical Location / Laterality Collection Method / VolumeCollection TimeReceived TimeBloodBLOOD SPECIMEN / UnknownVenipuncture / Zquixox5511/05/2024 6:14 AM EDT11/05/2024 6:42 AM EDT Narrative Authorizing ProviderResult TypeResult StatusTimmadeline Villasenor MDLAB BLOOD ORDERABLESFinal ResultPerforming OrganizationAddressCity/State/ZIP CodePhone Number [facility] [address] [place] [address] * Magnesium Level (11/05/2024 6:14 AM EDT) Only the most recent of4 resultswithin the time period is included. ComponentValueRef RangeTest MethodAnalysis TimePerformed AtPathologist Signature Magnesium2.21.6 - 2.4 mg/dL11/05/2024 7:16 AM [facility] LABSpecimen (Source)Anatomical Location / LateralityCollection Method / Volume Collection TimeReceived TimeBloodBLOOD SPECIMEN / UnknownVenipuncture / Unknown 11/05/2024 6:14 AM EDT11/05/2024 6:42 AM EDT Narrative Authorizing ProviderResult TypeResult StatusTimmadeline Fish Jacklyn KULKARNI BLOOD ORDERABLESFinal ResultPerforming OrganizationAddressCity/State/ZIP CodePhone Number [facility] [address] [place] [address] * (ABNORMAL) Comprehensive Metabolic Panel (11/05/2024 6:14 AM EDT) Only the most recent of5 resultswithin the time period is included. ComponentValueRef RangeTest MethodAnalysis TimePerformed AtPathologist Signature Vrobxj364718 - 145 mmol/L11/05/2024 7:16 AM [facility] Potassium5.4(H)3.5 - 5.1 mmol/L11/05/2024 7:16 AM [facility] OZMXszxxteo96936 - 108 mmol/L11/05/2024 7:16 AM [facility] YTJNrmznyxqmep4074 - 32 mmol/L11/05/2024 7:16 AM [facility] LABAnion Vsa9376 - 20 mmol/L11/05/2024 7:16 AM [facility] FGDOqhjqyw168(H)65 - 99 mg/dL11/05/2024 7:16 AM [facility] FBRNKA63 - 25 mg/dL11/05/2024 7:16 AM [facility] LABCreatinine0.740.50 - 1.30 mg/dL11/05/2024 7:16 AM [facility] CAJqLAS732>=60 mL/min/1.73 m211/05/2024 7:16 AM [facility] LABComment:Estimated GFR was calculated using the 2020 CKD-EPI creatinine equation.BUN/Creatinine Ratio12.210.0 - 20.009 7:16 AM EDT [facility] LABTotal Protein7.36.0 - 8.0 g/dL11/05/2024 7:16 AM [facility] LABAlbumin4.03.2 - 5.2 g/dL11/05/2024 7:16 AM [facility] EGDFfhfjwk96.18.4 - 10.2 mg/dL11/05/2024 7:16 AM [facility] LABAlkaline Rqcvpwwbozh278(H)40 - 140 U/L 11/05/2024 7:16 AM [facility] TIAIFR862-75 U/L U/L 11/05/2024 7:16 AM [facility] XFUISL20(H)0-50 U/L U/L 11/05/2024 7:16 AM [facility] LABTotal Bilirubin0.20.0 - 1.3 mg/dL11/05/2024 7:16 AM [facility] LABSpecimen (Source) Anatomical Location / LateralityCollection Method / VolumeCollection Time Received TimeBloodBLOOD SPECIMEN / UnknownVenipuncture / Csbfkge5811/05/2024 6:14 AM EDT11/05/2024 6:42 AM EDT Narrative [facility] - 11/05/2024 7:16 AM EDT [facility] has implemented the eGFR calculation approach that does not have a coefficient for race that conforms to the NKF-ASN Task Force Recommendations. Authorizing ProviderResult TypeResult StatusTimmadeline KULKARNI BLOOD ORDERABLESFinal ResultPerforming OrganizationAddressCity/State/ZIP CodePhone Number [facility] [address] [place] [address] * (ABNORMAL) Lipase (11/03/2024 5:50 AM EDT) Only the most recent of2 resultswithin the time period is included. ComponentValueRef RangeTest MethodAnalysis TimePerformed AtPathologist Signature Arzrxt239(H)15 - 65 U/L11/03/2024 11:03 AM [facility] Specimen (Source)Anatomical Location / LateralityCollection Method / Volume Collection TimeReceived TimeBloodBLOOD SPECIMEN / UnknownVenipuncture / Unknown 11/03/2024 5:50 AM EDT11/03/2024 7:02 AM EDT Narrative Authorizing ProviderResult TypeResult StatusJessica Jessica Gligora CNPLAB BLOOD ORDERABLESFinal ResultPerforming OrganizationAddressCity/State/ZIP Code Phone Number [facility] [address] [place] [address] * XR OR Fluoroscopy Time (11/02/2024 2:26 PM EDT)Specimen (Source)Anatomical Location / LateralityCollection Method / VolumeCollection TimeReceived Time Narrative [facility] - 11/02/2024 2:27 PM EDT This is an auto finalized result. Please refer to patient chart for further information. Authorizing ProviderResult TypeResult StatusLeonardo Gottlieb MDIMG FLUOROSCOPY ORDERABLESFinal ResultPerforming OrganizationAddressCity/State/ZIP CodePhone Number [facility] * ETT Airway (11/02/2024 1:45 PM EDT) Narrative Ally Mustafa MD - 11/02/2024 1:45 PM EDT Ally Mustafa MD 11/02/2024 1:45 PM ETT Airway Mask ventilation: ventilated by mask Technique: video laryngoscopy Type: cuffed ??oral Tube size: 7 mm Final laryngoscope: 3 ??Fernandez Location: oral Final grade: 1 Insertion attempts: 1 Placement verification: auscultation, symmetrical chest wall movement and end tidal CO2 Secured at: 22 cm (measured from the teeth) Secured by: tape Bite block: none Lip/tooth/tongue trauma: no Authorizing ProviderResult TypeResult StatusAlly Mustafa MDPR ANESTHESIAFinal Result * ERCP (11/02/2024 1:14 PM EDT) Narrative Authorizing ProviderResult TypeResult StatusDadalila ALLEN PROCEDURE ORDERABLESFinal Result * PT/INR (11/02/2024 7:06 AM EDT)ComponentValueRef RangeTest MethodAnalysis Time Performed AtPathologist SignatureProtime (PT)13.711.8 - 14.3 cskmyrw8011/02/2024 8:23 AM [facility] LABINR1.00.8 - 1.109 8:23 AM [facility] LABSpecimen (Source)Anatomical Location / LateralityCollection Method / VolumeCollection TimeReceived TimeBloodBLOOD SPECIMEN / UnknownVenipuncture / Tttldlc1511/02/2024 7:06 AM EDT11/02/2024 7:32 AM EDT Narrative [facility] - 11/02/2024 8:23 AM EDT During the induction phase of oral anticoagulation, the INR may not reflect the anticoagulation status of the patient. Therapeutic ranges for INR's are: Most clinical situations: INR 2.0-3.0 Mechanical Prosthetic Valve: INR 2.5-3.5 Critical: INR >5.0 Authorizing ProviderResult TypeResult StatusErin [facility] BLOOD ORDERABLES Final ResultPerforming OrganizationAddressCity/State/ZIP CodePhone Number [facility] [address] [place] [address] * CT Abdomen With And Without Contrast (11/01/2024 12:49 PM EDT)Anatomical RegionLateralityModalityAbdomenComputed TomographySpecimen (Source)Anatomical Location / LateralityCollection Method / VolumeCollection TimeReceived Time 11/02/2024 8:28 AM EDT Impressions 11/02/2024 10:00 PM EDT Pancreatic parenchymal calcifications most pronounced involving the pancreatic head suggestive of chronic pancreatitis. ??No CT evidence of acute pancreatitis. ??There are two pancreatic ductal stents which course from the proximal body into the duodenum. ??Slight prominence of the pancreatic duct involving the distal body and tail measuring up to 4 mm. No bulky abdominal lymphadenopathy. Mild circumferential thickening of the imaged distal esophagus which may represent esophagitis. TrovixJ/lab Workstation ID: ?? [id number] Narrative 11/02/2024 10:00 PM EDT EXAMINATION: CT ABDOMEN WITH AND WITHOUT CONTRAST HISTORY: ORDERING SYSTEM PROVIDED HISTORY: ??Pancreatitis, acute, initial episode. COMPARISON: CT of the abdomen and pelvis from 10/30/2024. TECHNIQUE: Dose reduction techniques were achieved by using automated exposure control and/or adjustment of mAand/or kV according to patient size and/or use of iterative reconstruction technique. Initially noncontrast CT images of the abdomen are performed followed by postcontrast CT images of the abdomen scanning during the portal venous phase. ??Coronal and sagittal reconstructions are performed. CONTRAST: IOPAMIDOL 370 MG IODINE/ML (76 %) INTRAVENOUS SOLUTION ??- ??75 mL, FINDINGS: Imaged lower lungs are grossly clear. ??The imaged lower cardiac chambers are normal in size. ??There is mild circumferential thickening of the imaged distal esophagus which is nonspecific and could represent esophagitis. ??The course and caliber of the stomach and duodenum is unremarkable. ??The liver, spleen, and adrenal glands are unremarkable. ??There is a punctate nonobstructing calculus involving the upper pole of the right kidney as well as within the lower pole of the left kidney. ??No hydronephrosis. ??Kidneys enhance homogeneously on postcontrast images. ??No bulky abdominal lymphadenopathy or ascites. There are pancreatic parenchymal calcifications which appear to be most pronounced at the level of the pancreatic head suggestive of chronic pancreatitis. ??There appear to be two pancreatic duct stents which course from the region of the pancreatic body into the duodenum. ??Slight prominence of the pancreatic duct involving the body and tail measuring up to 4 mm in diameter. ??No obvious focal pancreatic mass identified. ??No peripancreatic fluid or inflammatory stranding. ??The portal venous vasculature is grossly patent. ??Slight prominence of the proximal common duct with the more distal common duct tapering normally. ??Imaged small and large bowel loops in the abdomen and upper pelvis are normal in caliber without wall thickening. ??Images on bone windows show no acute osseous abnormality. Procedure Note Josef Mcmahan MD - 11/02/2024 EXAMINATION: CT ABDOMEN WITH AND WITHOUT CONTRAST HISTORY: ORDERING SYSTEM PROVIDED HISTORY: Pancreatitis, acute, initial episode. COMPARISON: CT of the abdomen and pelvis from 10/30/2024. TECHNIQUE: Dose reduction techniques were achieved by using automated exposurecontrol and/or adjustment of mA and/or kV according to patient size and/oruse of iterative reconstruction technique. Initially noncontrast CT images of the abdomen are performed followed by postcontrast CT images of the abdomen scanning during the portal venousphase. Coronal and sagittal reconstructions are performed. CONTRAST: IOPAMIDOL 370 MG IODINE/ML (76 %) INTRAVENOUS SOLUTION - 75 mL, FINDINGS: Imaged lower lungs are grossly clear. The imaged lower cardiac chambersare normal in size. There is mild circumferential thickening of theimaged distal esophagus which is nonspecific and could representesophagitis. The course and caliber of the stomach and duodenum isunremarkable. The liver, spleen, and adrenal glands are unremarkable.There is a punctate nonobstructing calculus involving the upper pole ofthe right kidney as well as within the lower pole of the left kidney. Nohydronephrosis. Kidneys enhance homogeneously on postcontrast images. Nobulky abdominal lymphadenopathy or ascites. There are pancreatic parenchymal calcifications which appear to be most pronounced at the level of the pancreatic head suggestive of chronic pancreatitis. There appear to be two pancreatic duct stents which coursefrom the region of the pancreatic body into the duodenum. Slightprominence of the pancreatic duct involving the body and tail measuring upto 4 mm in diameter. No obvious focal pancreatic mass identified. Noperipancreatic fluid or inflammatory stranding. The portal venousvasculature is grossly patent. Slight prominence of the proximal commonduct with the more distal common duct tapering normally. Imaged small andlarge bowel loops in the abdomen and upper pelvis are normal in caliberwithout wall thickening. Images on bone windows show no acute osseous abnormality. IMPRESSION: Pancreatic parenchymal calcifications most pronounced involving thepancreatic head suggestive of chronic pancreatitis. No CT evidence ofacute pancreatitis. There are two pancreatic ductal stents which coursefrom the proximal body into the duodenum. Slight prominence of thepancreatic duct involving the distal body and tail measuring up to 4 mm. No bulky abdominal lymphadenopathy. Mild circumferential thickening of the imaged distal esophagus which may represent esophagitis. SYJ/lab Workstation ID: [id number] Authorizing ProviderResult TypeResult StatusKiran Karson Gottlieb [facility] CT ORDERABLESFinal Result * (ABNORMAL) Drugs of Abuse Screen, Urine (10/31/2024 11:33 PM EDT)Component ValueRef RangeTest MethodAnalysis TimePerformed AtPathologist Signature Amphetamine Screen, UrineNone DetectedNone Vjaklidu25/22/2025 12:02 AM EDT [facility] LABComment:Urine Amphetamine Cutoff: < 1000 ng/mL = None DetectedBarbiturate Screen, UrineNone DetectedNone Rawjqzjp00/22/2025 12:02 AM [facility] LABComment:Urine Barbiturates Cutoff: < 200 ng/mL = None DetectedBenzodiazepine Screen, UrineNone DetectedNone Hbcbhcsf45/22/2025 12:02 AM [facility] LABComment:Urine Benzodiazepine Cutoff: < 200 ng/mL = None DetectedCannabinoid Screen, Urine None DetectedNone Kxzooewr79/22/2025 12:02 AM [facility] LABComment:Urine Cannabinoids Cutoff: < 50 ng/mL = None DetectedCocaine, Screen UrineNone DetectedNone Kslgsbuk22/22/2025 12:02 AM [facility] LABComment:Urine Cocaine Cutoff: < 300 ng/mL = None DetectedMethadone Screen, UrineNone DetectedNone Nhjqnbhx61/22/2025 12:02 AM [facility] LABComment:Urine Methadone Cutoff: < 300 ng/mL = None DetectedOpiate Screen, UrinePresumptive Positive(A)None Detected 11/01/2024 12:02 AM [facility] LABComment:Urine Opiates Cutoff: < 300 ng/mL = None DetectedOxycodone Screen, UrineNone DetectedNone Kyitptpd27/22/2025 12:02 AM [facility] LABComment:Urine Oxycodone Cutoff: < 100 ng/mL = None DetectedBuprenorphine, UrNone Detected None Drxmamxk85/22/2025 12:02 AM [facility] LABComment: Urine Buprenorphine Cutoff: < 5 ng/mL = None DetectedFentanyl, UrNone Detected None Wfvlfztr89/22/2025 12:02 AM [facility] LABComment: Urine Fentanyl Cutoff: < 1 ng/mL = None DetectedSpecimen (Source)Anatomical Location / LateralityCollection Method / VolumeCollection TimeReceived Time UrineURINE SPECIMEN / UnknownCollection / Suwaedt4610/31/2024 11:33 PM EDT 10/31/2024 11:38 PM EDT Narrative [facility] - 11/01/2024 12:02 AM EDT Screen results should be used for treatment purposes only. Specimen will be kept for 2 weeks, if the sample is adequate. ??Confirmation testing can be initiated by calling the lab within 2 weeks. Authorizing ProviderResult TypeResult StatusJustin Oscar ORDAZ ORDERABLESFinal ResultPerforming OrganizationAddressCity/State/ZIP CodePhone Number [facility] [address] [place] [address] * (ABNORMAL) Urinalysis (10/31/2024 11:33 PM EDT)ComponentValueRef RangeTest MethodAnalysis TimePerformed AtPathologist SignatureColor, UrineYellow Colorless, Pkqwco0211/01/2024 12:20 AM [facility] Clarity, NrjxaSxagcDfxir54/22/2025 12:20 AM [facility] LABSpecific Gravity1.0201.005 - 1.2682011/01/2024 12:20 AM [facility] LABpH, Urine5.55.0 - 7.009 12:20 AM [facility] LABProtein, UrineNegativeNegative mg/dL11/01/2024 12:20 AM [facility] LABGlucose, UrineNegativeNegative mg/dL 11/01/2024 12:20 AM [facility] LABKetones, Urine>=80(A) Negative mg/dL11/01/2024 12:20 AM [facility] Bilirubin, LkjwzIguntenpMbxsifrz08/22/2025 12:20 AM [facility] LABUrobilinogen, Urine<2.0<2.0 mg/dL11/01/2024 12:20 AM [facility] LABBlood, WdbpjGucnmmzrPxjukhwf41/22/2025 12:20 AM EDT [facility] LABNitrite, ItsysWiwcanmcEljmajdz39/22/2025 12:20 AM [facility] LABLeukocyte Esterase, UrineNegative Ounktaub12/22/2025 12:20 AM [facility] LABWBCs, Urine10 - 5 /hpf11/01/2024 12:20 AM [facility] LABRBCs, Urine<10 - 3 /hpf11/01/2024 12:20 AM [facility] LABBacteria, Urine None SeenNone Seen /hpf11/01/2024 12:20 AM [facility] Mucus, UrineRareNone Seen, Rare /lpf11/01/2024 12:20 AM [facility] LABSpecimen (Source)Anatomical Location / LateralityCollection Method / VolumeCollection TimeReceived TimeUrineCollection / Tawstam9910/31/2024 11:33 PM EDT10/31/2024 11:38 PM EDT Narrative [facility] - 11/01/2024 12:20 AM EDT Microscopic examination is performed on all urinalysis samples and only positive findings are reported. The test for blood on the chemical analytic portion of urinalysis may also be positive due to hemoglobinuria and myoglobinuria and if red blood cells are present they are quantified by microscopic examination. Authorizing ProviderResult TypeResult StatusJustdelilah ORDAZ ORDERABLESFinal ResultPerforming OrganizationAddressCity/State/[facility] CodePhone Number [facility] [address] [place] [address] * ECG 12 Lead (10/31/2024 4:21 PM EDT)ComponentValueRef RangeTest MethodAnalysis TimePerformed AtPathologist SignatureVentricular Lwsl00RULTVUREkieeu Acnv00UBW MUSEP-R Euszpxvl237gzWANCMIP Dwrbukvx85rsRUKXF-J Mmhlsusi838guZRPWWTU Calculation (Bezet)414msMUSEP Pljf23pxpnjvpKEYVD Logv89eobqgexSWJFO Axis71 degreesMUSESpecimen (Source)Anatomical Location / LateralityCollection Method / VolumeCollection TimeReceived Time10/31/2024 4:21 PM EDT11/01/2024 8:01 AM EDT Narrative MUSE - 11/01/2024 8:01 AM EDT Normal sinus rhythm with sinus arrhythmia Normal ECG Confirmed by Catherine DOMINGUEZ ([id number]) on 11/01/2024 8:01:33 AM Authorizing ProviderResult TypeResult StatusJepatrice RINALDI ORDERABLESFinal ResultPerforming OrganizationAddressCity/State/ZIP CodePhone Number MUSE from Last 3 Months Insurance Advance Directives For more information, please contact: [phone] * Full Code (Latest Code Status on File) Date ActivatedDate InactivatedComments10/31/2024 2:13 PM11/05/2024 7:25 PM Care Teams Team MemberRelationshipSpecialtyStart DateEnd Date No, Physician [facility] PCP - General10/31/24
--- NOTE | 2024-12-02 15:53 | ECG_ITS ---
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 Measurements Intervals [place] Rate: 85 P: 74 MD: 136 QRS: 82 QRSD: 78 T: 71 QT: 348 QTc: 391 Interpretive Statements 1100 Sinus rhythm 9110 normal ECG Compared to ECG 10/04/2024 10:22:51 Ventricular premature complex(es) no longer present Electronically Signed On 12-02-2024 19:20:55 EDT by YEIMI MONTES DE OCA M.D.
--- NOTE | 2024-12-02 15:58 | ED.GENADUL1 ---
HPI HPI - General Adult General Chief complaint: Nausea/Vomiting/Diarrhea Stated complaint: Nausea/Vomiting/Diarrhea Time Seen by Provider: 12/02/24 15:15 Source: patient Mode of arrival: walk-in History of Present Illness HPI narrative: 34-year-old male presents for vomiting and abdominal pain. He states he has had it for a couple days. He is worried about his pancreas. He has a history of pancreatitis. He told me that the last time he drank was 5 days ago but he told the nurse he drank alcohol last night. No hematemesis. No fever or chest pain. Related Data Home Medications ?Medication ?Instructions ?Recorded ?Confirmed qigzdm-pavuqqka-ivsvfrq(pork) 2 cap PO TID 07/17/24 12/02/24 40,000-126,000-168k unit capsule,del rel (Zenpep) ondansetron 4 mg disintegrating mg 12/02/24 tablet oxycodone 5 mg tablet mg 12/02/24 Previous Rx's ?Medication ?Instructions ?Recorded acetaminophen 300 mg-codeine 30 mg 1 tab PO Q6H PRN pain 5 days #20 12/02/24 tablet tabs promethazine 25 mg tablet 25 mg PO Q6H PRN nausea and 12/02/24 vomiting #20 tabs Allergies Allergy/AdvReac Type Severity Reaction Status Date / Time aspirin Allergy Unknown Unknown Verified 12/02/24 15:17 Opioid HPI Opioid Management Most Recent Opioid Data: Last Pain Scale 7 Today, 16:09 Last MAR Pain Assessment Today, 16:09 Review of Systems ROS Narrative A ten point review of systems is negative except as noted above. PFSH PFSH Social History Little interest or pleasure in doing things: not at all Feeling down, depressed, or hopeless: not at all Exam Narrative Exam Narrative: Nurses note and vital signs reviewed General:The patient appears in no apparent distress. Skin:Warm, dry, no pallor noted.There is no rash noted. Head:Normocephalic, atraumatic Eye: Normal conjunctiva, no drainage Ears, Nose, Mouth, and Throat: oral mucosa is moist. Nares patent. Cardiovascular:Regular Rate and Rhythm, mildly tachycardic Respiratory:Patient is in no distress, no accessory muscle use, lungs are clear to auscultation, no wheezing, rales or rhonchi Back:non-tender GI: Soft with tenderness primarily in the epigastric area. No rebound guarding or mass. Musculoskeletal: The patient has no evidence of calf tenderness, no pitting edema, symmetrical pulses noted bilaterally Neurological:A&O, normal speech Psychiatric:Cooperative Constitutional Vital Signs, click to edit/add: Last Vital Signs Temp 98.4 F 12/02/24 15:18 Pulse 115 H 12/02/24 15:18 Resp 18 12/02/24 15:18 BP 150/102 H 12/02/24 15:18 Pulse Ox 97 12/02/24 15:18 O2 Del Method Room Air 12/02/24 15:18 Course Vital Signs Vital signs: Vital Signs Temperature 98.4 F 12/02/24 15:18 Pulse Rate 115 H 12/02/24 15:18 Respiratory Rate 18 12/02/24 15:18 Blood Pressure 150/102 H 12/02/24 15:18 Pulse Oximetry 97 12/02/24 15:18 Oxygen Delivery Method Room Air 12/02/24 15:18 Temperature 98.4 F 12/02/24 15:18 Pulse Rate 115 H 12/02/24 15:18 Respiratory Rate 18 12/02/24 15:18 Blood Pressure 150/102 H 12/02/24 15:18 Pulse Oximetry 97 12/02/24 15:18 Oxygen Delivery Method Room Air 12/02/24 15:18 Medical Decision Making MDM Narrative Medical decision making narrative: Amylase and lipase are normal and CT scan does not show any acute inflammation. Findings are discussed with the patient and he is being discharged home. Treatment diagnosis and follow-up were discussed with the patient. Differential Diagnosis Differential Diagnosis: Acute pancreatitis, chronic pancreatitis, gastritis Lab Data Lab results reviewed: Yes I reviewed the patient's lab results Labs: Lab Results 12/02/24 Range/Units 15:30 WBC 7.4 (4.0-11.0) 10^3/uL RBC 4.78 (4.70-6.10) 10^6/uL Hgb 15.0 (14.0-18.0) g/dL Hct 43.6 (42.0-54.0) % MCV 91.2 (80.0-94.0) fL MCH 31.4 (25.9-34.0) pg MCHC 34.4 (29.9-35.2) g/dL RDW 12.9 (11.0-15.0) % Plt Count 230 (150-450) 10^3/uL MPV 9.4 L (9.5-13.5) fL Neut % (Auto) 51.9 (43.0-75.0) % Lymph % (Auto) 40.9 (20.5-60.0) % [place] % (Auto) 5.0 (1.7-12.0) % Eos % (Auto) 0.7 L (0.9-7.0) % Baso % (Auto) 1.4 (0.2-2.0) % Neut # (Auto) 3.8 (1.4-6.5) 10^3/uL Lymph # (Auto) 3.0 (1.2-3.8) 10^3/uL [place] # (Auto) 0.4 (0.3-0.8) 10^3/uL Eos # (Auto) 0.1 (0.0-0.7) 10^3/uL Baso # (Auto) 0.1 (0.0-0.1) 10^3/uL Abs Immat Gran (auto) 0.01 (0.00-0.03) 10^3/uL Imm/Tot Granulo (auto) 0.1 (0.0-0.5) % Sodium 140 (136-145) mmol/L Potassium 4.1 (3.5-5.1) mmol/L Chloride 102 (98-107) mmol/L Carbon Dioxide 23.4 (21.0-32.0) mmol/L Anion Gap 18.7 BUN 10.0 (7.0-18.0) mg/dL Creatinine 0.85 (0.70-1.30) mg/dL Est GFR ( Amer) >60 (>=60 mL/min/1.73m^2) Est GFR (Non-Af Amer) >60 (>=60 mL/min/1.73m^2) BUN/Creatinine Ratio 11.8 Glucose 105 (74-106) mg/dL Calcium 9.2 (8.5-10.1) mg/dL Total Bilirubin 0.4 (0.2-1.0) mg/dL Direct Bilirubin 0.1 (0.0-0.2) mg/dL AST 28 (15-37) U/L ALT 42 (16-63) U/L Alkaline Phosphatase 76 (46-116) U/L Total Protein 8.2 (6.4-8.2) g/dL Albumin 4.3 (3.4-5.0) g/dL Globulin 3.9 g/dL Albumin/Globulin Ratio 1.1 Amylase 46 (25-115) U/L Lipase 76.0 (16.0-77.0) U/L Imaging Data CT scan - abdomen: Radiologist's impression: ITS Impressions Abdomen/Pelvis CT 12/02/24 16:30 IMPRESSION: Negative acute inflammatory process or bowel obstruction. Pancreatic calcifications and mild pancreatic duct dilatation can be seen with chronic pancreatitis. Mural thickening gastroesophageal junction and involving sigmoid colon may be related to under distention. Impression dictated by: Claude Masters M.D. 12/02/2024 5:11 PM Dictation Location: [place] [address] Electronically authenticated by: [id number] Y Date: 12/02/2024 17:11 Discharge Plan Discharge Chief Complaint: Nausea/Vomiting/Diarrhea Clinical Impression: Abdominal pain Patient Disposition: Home, Self-Care Time of Disposition Decision: 17:20 Condition: Good Mode of Transportation: Private Vehicle Prescriptions / Home Meds: New acetaminophen-codeine 300-30 mg tablet 1 tab PO Q6H PRN (Reason: pain) 5 Days Qty: 20 0RF promethazine 25 mg tablet 25 mg PO Q6H PRN (Reason: nausea and vomiting) Qty: 20 0RF No Action Zenpep 40,000-126,000- 168,000 unit capsule,delayed release(DR/EC) 2 cap PO TID Rx Instructions: administer with meals and/or snacks ondansetron 4 mg tablet,disintegrating oxycodone 5 mg tablet Print Language: Marshallese Instructions: Abdominal Pain (ED) Referrals: Keya Hansen CUSTOMER COUNTER REPRESENTATIVE [Primary Care Provider] - 1 week
[2024-12-02 16:03] LABS: Hematocrit 43.6 % (42.0-54.0); Hemoglobin 15.0 g/dL (14.0-18.0); Immature Granulocytes Abs Auto 0.01 10^3/uL (0.00-0.03); Immature Granulocytes Pct Auto 0.1 % (0.0-0.5); Lymphocytes Absolute Auto 3.0 10^3/uL (1.2-3.8); Mean Corpuscular HGB Conc 34.4 g/dL (29.9-35.2); Mean Corpuscular Hemoglobin 31.4 pg (25.9-34.0); Mean Corpuscular Volume 91.2 fL (80.0-94.0); Platelet Count 230 10^3/uL (150-450); Red Blood Count 4.78 10^6/uL (4.70-6.10); White Blood Count 7.4 10^3/uL (4.0-11.0)
[2024-12-02] MEDS: MORPHINE SULFATE 4 MG/ML VIAL IV (16:09)
[2024-12-02] MEDS: 0.9 % SODIUM CHLORIDE 1,000 ML 1000 ML IV (16:09)
[2024-12-02 16:19] LABS: Alanine Aminotransferase 42 U/L (16-63); Albumin Globulin Ratio 1.1; Albumin Level 4.3 g/dL (3.4-5.0); Alkaline Phosphatase 76 U/L (46-116); Amylase 46 U/L (25-115); Anion Gap 18.7; Aspartate Amino Transferase 28 U/L (15-37); Blood Urea Nitrogen 10.0 mg/dL (7.0-18.0); Calcium 9.2 mg/dL (8.5-10.1); Carbon Dioxide 23.4 mmol/L (21.0-32.0); Chloride 102 mmol/L (98-107); Estimated GFR (African America >60 (>=60 mL/min/1.73m^2); Estimated GFR (Non-African Ame >60 (>=60 mL/min/1.73m^2); Globulin 3.9 g/dL; Glucose 105 mg/dL (74-106); Lipase 76.0 U/L (16.0-77.0); Potassium 4.1 mmol/L (3.5-5.1); Sodium 140 mmol/L (136-145); Total Protein 8.2 g/dL (6.4-8.2)
--- NOTE | 2024-12-02 16:30 | CT_ITS ---
The [address] [address] Patient Name: BLUE CAO MRN: [id number] date: 1990 Sex: M Assigned Patient Location: ER Current Patient Location: ER Accession/Order Number: [id number] Exam Date: 12/02/2024 16:38 Report Date: 12/02/2024 17:11 At the request of: DENAE BETANCUR MD Procedure: CT abdomen pelvis w con CT ABDOMEN AND PELVIS WITH INTRAVENOUS CONTRAST: CLINICAL HISTORY: Epigastric pain, hx pancreatitis, normal jc/lip COMPARISON: None TECHNIQUE: Spiral images were obtained through the abdomen and pelvis following the administration of intravenous contrast. This CT exam was performed using one or more following dose reduction techniques: Automated exposure control, adjustment of the mA and/or kV according to patient size, or use of iterative reconstruction technique. FINDINGS: Lung Bases: [No focal opacity.] Organs:Pancreatic calcifications and ductal dilatation suggest chronic pancreatitis. Liver, spleen, adrenals, left kidney unremarkable. Nonspecific irregular calculus. No hydronephrosis. GI: Focal thickening GE junction/distal esophagus otherwise scattered small large bowel air-fluid levels. Mild colonic fecal retention. Unremarkable appendix. Thickening of the sigmoid colon possibly to under distention.. No Surrounding inflammatory changes.[ Pelvis:[Bladder prostate unremarkable.] Peritoneum/Retroperitoneum:No free air or fluid. Aorta is normal in caliber. No bulky adenopathy.[ Abd wall/Bones:No suspicious osseous lesion.[ CT/CT abdomen pelvis w con IMPRESSION: Negative acute inflammatory process or bowel obstruction. Pancreatic calcifications and mild pancreatic duct dilatation can be seen with chronic pancreatitis. Mural thickening gastroesophageal junction and involving sigmoid colon may be related to under distention. Impression dictated by: Claude Masters M.D. 12/02/2024 5:11 PM Dictation Location: [place] [address] Electronically authenticated by: [id number] Y Date: 12/02/2024 17:11
== END 2024-12-02 17:43 | disposition home or self-care (01) ==
PROVIDERS: Emergency Provider Emergency Medicine; PCP Nurse Practitioner Family
DX: R10.84 Generalized abdominal pain (principal); R11.10 Vomiting, unspecified
CPT/HCPCS: 36415; 74177; 80048; 80076; 82150; 83690; 85025; 93005; 96361; 96374; 96375; 99285; J2270; J2405; Q9967

== ENCOUNTER 2024-12-22 14:09 | Emergency (ER) | payer SELFPAY ==
[2024-12-22 14:13] VITALS: BP 138/92; PULSE 89; TEMP 36.7; O2SAT 99; BMI 19.3
--- OUTSIDE RECORDS SUMMARY | 2024-12-22 14:20 | XMS_ITS | Patient Health Record ---
Author Organization [facility] Address [address] [place] [address] Care Team Providers Care Judicial Assistant Name Role Phone Quinn Delgadoa Unavailable [phone] AndriMonae boggsorah Unavailable [phone] Reason For Referral No Information Problems Problem Type SNOMED Code ICD Code Onset Dates Problem Status W/U Status Risk Notes Problem Pain from pancreas (K86.89)Activeconfirmed Encounters Encounter Location Date Provider Diagnosis [facility] [address] [place], [place] [id number] 11/02/2024 Shirley Andriani Pain from pancreas K86.89 [facility] [address] [place], [place] [id number] 11/03/2024 Shirley Andriani Pain from pancreas K86.89 [facility] [address] [place], [place] [id number] 11/04/2024 Doris Danny Pain from pancreas K86.89 [facility] [address] [place], [place] [id number] 11/01/2024 Shirley Andriani Pain from pancreas K86.89 Assessments Encounter Date Diagnosis (ICD Code) Assessment Notes Treatment Notes Treatment Clinical Notes Section Notes 11/02/2024 Pain from pancreas (ICD-10 - K86 .89) 11/03/2024Pain from pancreas (ICD-10 - K86.89)11/04/2024Pain from pancreas (ICD- 10 - K86.89)11/01/2024Pain from pancreas (ICD-10 - K86.89) Plan Of Treatment No Information Insurance Providers Payer Name Payer Address Payer Phone Subscriber Number Group Number Insured Name Patient Relationship to Insured Coverage Start Date Coverage End Date [place] [address] [place], [place] [id number] Robbin Joneself - patient is the insured
--- OUTSIDE RECORDS SUMMARY | 2024-12-22 14:20 | XMS_ITS | Clinical Summary ---
Author Organization [facility] Address [address], [address] [place] [address] Care Team Providers Care Manager Of Finance Name Role Phone Baron Serrato Primary Care Provider [phone] Allergies Active AllergyReactionsCriticalityNoted ZyxvGzqcbkjwWaijvuc41/31/2015 Unsure why he states mom told him to not take it Hfkjvyolq02/11/2023KetorolacOther (See Comments)Low12/22/2022 Medications MedicationSigDispense QuantityRefillsLast FilledStart DateEnd DateStatus Pancrelipase, Kmb-Uktg-Qnxc, (ZENPEP) 43604-254236 units CPEP Take 2 capsules by mouth [...] 1 tablet by mouth daily 30 tablet 101/04/784798/iscontinued Active Problems ProblemNoted DateDiagnosed DateHospice care07/07/2024Pancreatitis, unspecified pancreatitis type04/25/2024hronic pancreatitis due to chronic alcoholism 04/25/2024lcohol abuse03/24/2024Normocytic smzuyk0103/23/2024Proteinuria 03/23/20242444Phrglxjahspiv59/12/2024Moderate cigarette smoker (10-19 per day) 11/22/20238084Mxmnrhknplctc58/12/2024oor zhkhnrbpuz21/11/2024Vapes nicotine containing hyfalglli02/05/2023lcohol-induced acute pancreatitis without infection or zcsuyaet60/04/2023cute on chronic htihylectlqt93/06/2023lcohol use ylquwfpg83/06/4741Yeawnyvnjrd43/06/2023lcohol-induced acute pancreatitis 07/16/2022urrent severe episode of major depressive disorder without psychotic features without prior nozmeol8501/12/2021 Assessment & Plan (02/12/2024 9:31 AM EST): Chronic, at goal (stable), continue current treatment plan Xhrrdwc2101/12/2021losed posterior dislocation of elbow, left, tjfxffx8108/30/2020 Alcohol-induced chronic fdnijnrqyqqk32/21/2021Herpes simplex virus infection 08/30/2020Need for prophylactic vaccination against Streptococcus pneumoniae (pneumococcus)08/30/2020 Resolved Problems ProblemNoted DateDiagnosed DateResolved DateAlcohol induced acute pancreatitis ute pancreatitis, unspecified complication status, unspecified pancreatitis typeMalnutrition11/21/2023 02/12/2024Pancreatic duct roclwq06Healthcare maintenance Immunizations ImmunizationAdministration DatesNext DueInfluenza, FLUARIX, FLULAVAL, [...] (1 standard drink = 0.6 oz pure alcohol)[facility] UtilitiesAnswerDate RecordedIn the past 12 months has the [employer], oil, or water [employer] threatened to shut off services in your [...] and heating?Not hard at all02/12/2024PHQ-2AnswerDate RecordedPHQ-9 Total Obmxx322Hunger Vital SignAnswerDate RecordedWithin the past 12 months, [...] homeless or living in a correction (including now)?No04/26/2024 Food InsecurityAnswerDate RecordedWithin the past 12 months, you worried that your food would run out before you got the money to buymore.Within the past 12 months, the food you bought just didn't last and you didn't have money to get more.Interpersonal Safety Domain Source: IP Abuse ScreeningAnswerDate RecordedPhysical occyzGiyhdj76/16/2025Verbal abuseDenies 04/25/2024Emotional cfcrsVsdher19/16/2025Financial hhbvbKjgjjq20/16/2025Sexual kbuxgTjgbgb38/16/2025Sex and Gender InformationValueDate RecordedSex Assigned at BirthNot on fileLegal XxbRiyd7303/22/2012 1:02 PM ESTGender IdentityNot on file Sexual OrientationNot on file Last Filed Vital Signs Vital SignReadingTime TakenCommentsBlood Axnhutlg100/6404/ 9:23 AM EDT Verwx6986 9:23 AM LPHSroskgznlfo84.8 ??C (98.2 ??F)04/28/2024 8:43 AM EDTRespiratory Wyhs412204/27/2024 8:47 PM EDTOxygen Arfspagyod91%05/24/2024 9:23 AM EDTInhaled Oxygen Concentration--Hzquwz07.4 kg (126 lb 9.6 oz)05/24/2024 9:23 AM LHHCdhrri282.2 cm (5' 7.01 )05/24/2024 9:23 AM EDTBody Mass Index19.82 05/24/2024 9:23 AM EDT Plan of Treatment Health MaintenanceDue DateLast DoneCommentsFlu dwjqcsnGnbipajhbzlh66/14/2017 Pneumococcal 0-49 years EduwjqgTwtgejsqejwe07/21/2021HIV screenDiscontinued 09/19/2020TaP/Tdap/Td zxwvafyVuvbgetgundo36/27/2024, 05/08/2020Hepatitis C lthvktRonqhgmlzxoj67/19/2024, 09/19/2020epression MonitoringDiscontinued 02/25/2024, 02/25/2024 Medical Devices ImplantedTypeAreaManufacturerDevice IdentifierShelf Expiration DateModel / Serial / LotStent Pancreas 7fr L12cm Plas Str Ld Katarina Trailing Radpq - [id number] Implanted:Qty: 1 on 12/05/2023 [facility] [place]:Biliary/Pancreatic/IliacN/A: PancreasPlayto [id number] / / [id number] Pancreas 7fr L7cm Plas Str Ld Katarina Trailing Radpq Mrk - [id number] Implanted:Qty: 1 on 12/05/2023 by Scott Morales MD at [facility] [place]:Biliary/Pancreatic/IliacN/A: DuodenumPlayto [id number] / / [id number] Panc Stent Strt Lb 5sik48rh - [id number] Implanted:Qty: 1 on 12/05/20[facility]-[id number] / / [id number] Pancreas L7cm Od7fr Polymer Pgtl Ld Katarina Ld Radpq Mrk - [id number] Implanted:Qty: 1 on [facility]/17/[facility]-WD12/20/[id number] / / [id number] Pancreas 5fr L7cm 0.035in For Drn Obstructed Pancreas - [id number] Implanted:Qty: 1 on 10/17/2022 [facility]: [employer]-WD10/30/2024G22360 / / [id number] Del 7fr Pancreas Naviflex Rx - [id number] Implanted:Qty: 2 on 01/22/2023 [facility]: [facility] SCIENTIFIC-WD05/19/[id number] / / [id number] Pancreas L9cm Od7fr Polymer Pgtl Ld Katarina Ld Radpq Mrk - [id number] Implanted:Qty: 1 on 01/22/2023 [facility] SCIENTIFIC-WD04/29/[id number] / / [id number] Pancreas L7cm Od7fr Polymer Pgtl Ld Katarina Ld Radpq Mrk - [id number] Implanted:Qty: 1 on 01/22/2023 [facility] [employer]-WD04/29/[id number] / / [id number] Pancreas L7cm Od5fr Polymer Pgtl Ld Katarina Ld Radpq Mrk - [id number] Implanted:Qty: 1 on 01/22/2023 [facility] [employer]-WD06/02/[id number] / / [id number] IdentifierShelf Expiration DateModel / Serial / LotKit Pancreas Stnt 5fr L7cm Plas Str No Ld Katarina Trailing - [id number] Explanted:Qty: 1 on 10/17/2022 at [facility] [employer]-WD12/08/[id number] / / [id number]:Wrong size Procedures Procedure NamePriorityDate/TimeAssociated DiagnosisCommentsHEPATITIS PANEL, ZLBLZKVXC27/19/2024 9:13 PM EDT HIV VHSPZZXoqyizu33/10/2021 10:05 AM EDT Healthcare maintenance from Last 3 Months or Most Recently Relevant to Health Maintenance Results * Hepatitis Panel, Acute (10/30/2023 9:13 PM EDT)ComponentValueRef RangeTest MethodAnalysis TimePerformed AtPathologist SignatureHepatitis B Surface Ag HZPDPNZQMWXJPOYDOMJYUM79/19/2024 9:13 PM EDTMERCY LABORATORIESHepatitis C Ab RIWYQBOLMXDEXISNPFMDAC44/19/2024 9:13 PM EDTMERCY LABORATORIESComment: ? The hepatitis [...] RNA by PCR. Hep B Core Ab, KaNMTIYDUXIPCXREKYWPDQCKD73/19/2024 9:13 PM EDTMERCY LABORATORIES Hep A VzKTPUDDQSTXWKIATXDPLTUUQ69/19/2024 9:13 PM EDTMERCY LABORATORIESSpecimen (Source)Anatomical Location / LateralityCollection Method / VolumeCollection TimeReceived TimeBLOOD SPECIMEN / Owspanf0710/30/2023 9:13 PM EDT10/30/2023 9:16 PM EDT Narrative Authorizing ProviderResult TypeResult StatusMatthew Miguel Hooks PA-C IMMUNOLOGY ORDERABLESFinal ResultPerforming OrganizationAddressCity/State/ZIP CodePhone Number [facility] [address] [place] [address], [facility] [[email or web address]] [phone] [facility] [address] [place] [address], [facility] [[email or web address]] [phone] * HIV Screen (09/19/2020 10:05 AM EDT)ComponentValueRef RangeTest MethodAnalysis TimePerformed AtPathologist SignatureHIV Ag/GgBHOSZMJFXOSIHGMQKXBAZL50/10/2021 10:05 AM EDTMERCY LABORATORIESComment: No laboratory evidence of HIV infection. ??If acute HIV infection is suspected, consider testing for HIV-1 RNA. Specimen (Source)Anatomical Location / LateralityCollection Method / Volume Collection TimeReceived TimeBLOOD SPECIMEN / Ecsmuue3009/19/2020 10:05 AM EDT 09/19/2020 10:21 AM EDT Narrative Authorizing ProviderResult TypeResult StatusArvind Datt MDIMMUNOLOGY ORDERABLES Final ResultPerforming OrganizationAddressCity/State/ZIP CodePhone Number [employer] [address] [place] [id number] [phone] from Last 3 Months or Most Recently Relevant to Health Maintenance Insurance Advance Directives * Full Code (Latest Code Status on File) Date ActivatedDate InactivatedComments04/25/2024 8:22 PM04/28/2024 1:01 PM * Full Code Date ActivatedDate InactivatedComments03/22/2024 10:50 PM2 8:21 PM * Full Code Date ActivatedDate GmwisybthftOhaggimw87/10/2024 7:43 PM10 3:31 PM * Full Code Date ActivatedDate IbpflzwxssiCoatqvxs22/8/2024 11:06 PM10 7:41 PM * Full Code Date ActivatedDate EhbayeozfocKfmvagmu30/27/2023 6:47 AM12/07/2022 8:01 PM Care Teams Team MemberRelationshipSpecialtyStart [place] [address] [place] [address] PCP - GeneralPhysician Assistant02/12/24
--- OUTSIDE RECORDS SUMMARY | 2024-12-22 14:20 | XMS_ITS | Clinical Summary ---
Author Organization [facility] Address [address] [place] [address] Care Team Providers Care Polymer Materials Consultant Name Role Phone Osmar Elizabeth MD Primary Care Provider [phone] Allergies Active AllergyReactionsCriticalityNoted DateCommentsAspirinOther,Unknown 07/25/2016 Pts mom says they can not have but pt is unsure of why Dvmpfgbmg40/11/3822HxncxkoduZmvpiFuo11/12/2023 Medications MedicationSigDispense QuantityRefillsLast FilledStart DateEnd DateStatus oxyCODONE-acetaminophen (Percocet) 10-325 MG tablet Active pancrelipase, Mnw-Cljv-Jsgl, (Zenpep) 55040-837698 units capsule delayed-release particles capsule Take 2 capsules by mouth in the morning and 2 capsules at noon and 2 capsules in the evening. Take with meals.4Active ondansetron ODT (Zofran-ODT) 4 MG disintegrating tablet Take 4 mg by mouth every 6 (six) hours if xkpiqn375Active mupirocin (Bactroban) 2 % ointment Indications:Chronic rhinitisApply to each side of the nose twice daily for one month 15 g 5Active Active Problems ProblemNoted DateDiagnosed DateAlcohol use oovbbrua86/11/2023Alcohol-induced acute pancreatitis (HHS-HCC)12/21/2022Sinus hclapstelgg90/11/2023igarette nicotine dependence without ktkgsibpvdcg08/15/2017History of alcohol abuse 11/24/2016History of hvnjkosuzmyq93/15/2017Acute pancreatitis without necrosis or infection, unspecified (HHS-HCC)09/19/2016 Encounters DateTypeDepartmentCare IrkaDsdqyqmpcep54/07/2025 8:40 AM EDTOffice Visit [facility] [address] [place] [address] Melanie Julio MD Chronic rhinitis (Primary Dx); Nasal valve lqujjqow10/07/2025amboo flowsheet [facility] [address] [place] [address] Melanie Julio MD 11/16/2024Travelfrom Last 3 Months Immunizations ImmunizationAdministration DatesNext DueInfluenza, injectable, quadrivalent, preservative free11/23/2016Pneumococcal Polysaccharide MVPX6828Tdap 09/10/2024,10/07/2023,05/08/2020 Family History RelationNameStatusCommentsFatherAliveMotherAlive Social History Tobacco UseTypesPacks/DayYears UsedDateSmoking Tobacco: NeverSmokeless Tobacco: Never Tobacco Cessation:Counseling Given: Not Answered Comments:Does vape Alcohol UseStandard Drinks/WeekCommentsYes0 (1 standard drink = 0.6 oz pure alcohol)almost dailySex and Gender InformationValueDate RecordedSex Assigned at BirthNot on fileLegal QngBzkh6707/28/2024 3:39 PM EDTGender IdentityNot on file Sexual OrientationNot on file Last Filed Vital Signs Vital SignReadingTime TakenCommentsBlood Wwvmhxvm843/8611/16/2024 8:41 AM EDT Wuffn006911/16/2024 8:41 AM EDTTemperature--Respiratory Rate--Oxygen Saturation-- Inhaled Oxygen Concentration--Woovsb14.9 kg (121 lb)11/16/2024 8:41 AM EDTHeight 170.2 cm (5' 7 )11/16/2024 8:41 AM EDTBody Mass Index18.9511/16/2024 8:41 AM EDT Plan of Treatment Not on file Insurance Care Teams Team MemberRelationshipSpecialtyStart DateEnd Date Osmar Elizabeth MD [address] [place] [id number] PCP - GeneralNurse Unrmbjxpiitp59/7/25
--- OUTSIDE RECORDS SUMMARY | 2024-12-22 14:20 | XMS_ITS | Clinical Summary ---
Author Organization [facility] Address [address] [place] [address] Care Team Providers Care Microbiology Supervisor Name Role Phone No, Physician Primary Care Provider Unavailabl e Allergies Active AllergyReactionsCriticalityNoted DateCommentsAspirinOther (See Comments) 07/25/2016 Pts mom says they can not have but pt is unsure of why Medications MedicationSigDispense QuantityRefillsLast FilledStart DateEnd DateStatus oxyCODONE-acetaminophen (PERCOCET) 10-325 mg per tablet Indications:Chronic pancreatitis due to chronic alcoholism (HCC)Take 1 (one) tablet by mouth every 6 (six) hours as needed . 25 tablet 5Active ondansetron (ZOFRAN-ODT) 4 MG disintegrating tablet Dissolve 1 (one) tablet (4 mg total) on top of tongue every 6 (six) hours as needed for nausea . 20 tablet 5Active dhhidj-aewogrpw-ixolcla 40,000-126,000- 168,000 unit CpDR Take 2 capsules by mouth 3 (three) times a day with meals . 180 capsule 51Expired Active Problems ProblemNoted DateDiagnosed DatePancreatic pain11/01/2024 Assessment & Plan (11/01/2024 12:15 PM EDT): Reason For Hospitalization: ICD-10 K86.89 Christoph Jones presented 10/31/2024 Chronic pancreatitis due to chronic rlhzlctqti12/21/2025 Assessment & Plan (11/01/2024 3:36 PM EDT): Christoph Jones is a 34 yr old M with PMHx significant for AUD, chronic pancreatitis, prior ERCP w/PD stent placement, presented to ED in [facility] 10/30 with nausea and epigastric abd pain. CT imagingnoted esophageal thickening and PD stent. Transferred to [facility] and GI c/f chronic pancreatitis, hx ofPD [...] - recommend etoh cessation and c/s to / for community cessation resources - case/plan discussed with Dr. Gottlieb Encounters DateTypeDepartmentCare McofFbzwsjdxqba93/23/2025 1:29 PM EDTAnesthesia Event [facility] [address] [place] [address] Ally Mustafa MD 11/02/2024 12:09 PM EDT - 11/02/2024 1:09 PM EDTSurgery [facility] [address] [place] [address] Denzel Anthony MD ENDOSCOPIC RETROGRADE CHOLANGIOPANCREATOGRAPHY with stone removal and qnxqibwchgbkor38/23/0165Dmixzr62/21/2025 1:17 PM EDT - 11/05/2024 5:25 PM EDT Hospital Encounter [facility] [address] [place] [address] Physicians, [facility] Danielito Villasenor MD Zamoyski, Justin John, DO Discharge Disposition: Homefrom Last 3 Months Social History Tobacco UseTypesPacks/DayYears UsedDateSmoking Tobacco: FormerCigarettes Smokeless Tobacco: NeverAlcohol UseStandard Drinks/SkowJianoiowEkg15 (1 standard drink = 0.6 oz pure alcohol)[facility] UtilitiesAnswerDate RecordedIn the past 12 months has the [employer], gas, oil, or water [employer] threatened to shut off services in your [...] were you homeless or living in a halfway (including now)?No10/31/2024Sex and Gender InformationValueDate RecordedSex Assigned at BirthNot on fileLegal ZamWejj1110/30/2024 5:36 AM EDT Gender IdentityNot on fileSexual OrientationNot on file Last Filed Vital Signs Vital SignReadingTime TakenCommentsBlood Liyuewxq205/8411/05/2024 3:43 PM EDT Qmrjk948911/05/2024 3:43 PM ABUVpafvcvscma88.7 ??C (98.1 ??F)11/05/2024 8:21 AM EDTRespiratory Xgol327511/05/2024 4:05 PM EDTOxygen Gayycxcwul36%11/05/2024 4:05 PM EDTInhaled Oxygen Concentration--Cjgupo17.5 kg (118 lb)11/02/2024 12:47 PM UKPAzdfun884.2 cm (5' 7 )11/02/2024 12:47 PM EDTBody Mass Index18.48011/02/2024 12:47 PM EDT Plan of Treatment Health MaintenanceDue DateLast DoneCommentsMMR Vaccines (1 of 1 - Standard series)1989Wellness Visit04/14/1991Depression Screening/Follow-Up (PHQ-2/9)2000Varicella Vaccines (1 of 2 - 13+ 2-dose series)2001HIV Vluxukqhk17/04/2004Hepatitis C Durjynlmj00/04/2007Hepatitis B Vaccines (1 of 3 - 19+ 3-dose series)04/14/2007HPV Vaccines (1 - 3-dose SCDM series)04/14/2015 COVID-19 Vaccine ( - 2024- season)2024Influenza Vaccine (#1)2024 11/23/2016Tetanus/Diphtheria/Pertussis (4 - Td or Tdap), 10/07/2023, 05/08/2020Zoster Vaccines (1 of 2)2038RSV Vaccines (1 - 1-dose 75+ series)4Pneumococcal VaccineAged Out08/30/2020No longer eligible based on patient's age to complete this topicHIB VaccinesAged OutNo longer eligible based on patient's age to complete this topicHepatitis A VaccinesAged OutNo longer eligible based on patient's age to complete this topicIPV Vaccines Aged OutNo longer eligible based on patient's age to complete this topic Meningococcal ACWY VaccineAged OutNo longer eligible based on patient's age to complete this topicMeningococcal B VaccineAged OutNo longer eligible based on patient's age to complete this topicRotavirus VaccinesAged OutNo longer eligible based on patient's age to complete this topic Medical Devices ImplantedTypeAreaManufacturerDevice IdentifierShelf Expiration DateModel / Serial / LotStent 5fr 3cm Pancreatic Zimmon - [id number] Implanted:Qty: 1 on 11/02/2024 [facility] PancreasCOOK [id number] / / [id number] Procedures Procedure NamePriorityDate/TimeAssociated JgidqelyrIlloptltAAQ14/29/2025 4:11 PM IILKWFIkwlfuk86/26/2025 6:14 AM EDT MAGNESIUM RRXNCLpfnadb42/26/2025 6:14 AM EDT COMPREHENSIVE METABOLIC FYDTNRqjtcwn40/26/2025 6:14 AM EDT XEWSynsjdk45/25/2025 5:41 AM EDT MAGNESIUM FXXSQLkqsulk23/25/2025 5:41 AM EDT COMPREHENSIVE METABOLIC GHODQKzkmbyq76/25/2025 5:41 AM EDT LIPASEAdd-On11/03/2024 5:50 AM EDT DUTAgmqwim70/24/2025 5:50 AM EDT MAGNESIUM YOTQQIramqly71/24/2025 5:50 AM EDT COMPREHENSIVE METABOLIC AROAPJwokgwz82/24/2025 5:50 AM EDT XR OR FLUOROSCOPY RDVXTcszayt72/23/2025 2:26 PM EDT AIRWAY HHBWdmqjfz52/23/2025 1:45 PM EDT MN ERCP DX COLLECTION SPECIMEN BRUSHING/YYWUULS4411/02/2024 1:29 PM EDT Chronic pancreatitis due to chronic alcoholism (HCC) ERCP11/02/2024 1:14 PM EDTMAGNESIUM GVRVZAitpxwp80/23/2025 7:06 AM EDT PT/ZJXOaqjbjh42/23/2025 7:06 AM EDT COMPREHENSIVE METABOLIC VSKPZWsylqhz48/23/2025 7:06 AM EDT NPCGbeiqoy81/23/2025 7:[address] ABDOMEN WITH AND WITHOUT YTDOUWYNDGUT05/22/2025 12:49 PM EDT XQKYLVMffiudm32/22/2025 7:29 AM EDT TDTEulzyxk28/22/2025 7:29 AM EDT COMPREHENSIVE METABOLIC NIOWNXvmbyet11/22/2025 7:29 AM EDT ZWNONMYUANUtdyqcb95/21/2025 11:33 PM EDT DRUGS OF ABUSE SCREEN, MXCBXCmykirt78/21/2025 11:33 PM EDT ECG 12-TYSJVovxjgr37/21/2025 4:21 PM EDT from Last 3 Months Results * EKG (11/08/2024 4:11 PM EDT)Specimen (Source)Anatomical Location / Laterality Collection Method / VolumeCollection TimeReceived Time Narrative Authorizing ProviderResult TypeResult StatusTimothy S Doone MDSCANNED ORDERS Final Result * (ABNORMAL) CBC (11/05/2024 6:14 AM EDT) Only the most recent of5 resultswithin the time period is included. ComponentValueRef RangeTest MethodAnalysis TimePerformed AtPathologist Signature WBC5.314.50 - 11.00 K/[facility]11/05/2024 7:20 AM [facility] RBC4.44(L)4.50 - 5.90 M/[facility]11/05/2024 7:20 AM [facility] MKOVnlfhvznls95.813.5 - 17.5 g/dL11/05/2024 7:20 AM [facility] GXUEobigayeqp49.741.0 - 53.0 %11/05/2024 7:20 AM [facility] LDITED88.280.0 - 100.0 NM11/05/2024 7:20 AM [facility] OUENLP13.126.0 - 34.0 pg11/05/2024 7:20 AM [facility] RSDEZMC17.331.0 - 37.0 g/dL11/05/2024 7:20 AM [facility] DYVHwbyvhtyj672159 - 400 K/[facility]11/05/2024 7:20 AM [facility] LABRDW - CV12.811.6 - 14.8 %11/05/2024 7:20 AM [facility] EBFGDZ68.19.4 - 12.4 NM11/05/2024 7:20 AM [facility] LABNucleated RBC0.0%11/05/2024 7:20 AM [facility] LABNucleated RBC Abs0.000.00 - 0.00 K/[facility]11/05/2024 7:20 AM [facility] LABSpecimen (Source)Anatomical Location / Laterality Collection Method / VolumeCollection TimeReceived TimeBloodBLOOD SPECIMEN / UnknownVenipuncture / Ciawmoc8611/05/2024 6:14 AM EDT11/05/2024 6:42 AM EDT Narrative Authorizing ProviderResult TypeResult StatusJordonmadeline Fish Jacklyn [facility] BLOOD ORDERABLESFinal ResultPerforming OrganizationAddressCity/State/ZIP CodePhone Number [facility] [address] [place] [phone] * Magnesium Level (11/05/2024 6:14 AM EDT) Only the most recent of4 resultswithin the time period is included. ComponentValueRef RangeTest MethodAnalysis TimePerformed AtPathologist Signature Magnesium2.21.6 - 2.4 mg/dL11/05/2024 7:16 AM [facility] LABSpecimen (Source)Anatomical Location / LateralityCollection Method / Volume Collection TimeReceived TimeBloodBLOOD SPECIMEN / UnknownVenipuncture / Unknown 11/05/2024 6:14 AM EDT11/05/2024 6:42 AM EDT Narrative Authorizing ProviderResult TypeResult StatusJordonmadeline Fish Jacklyn [facility] BLOOD ORDERABLESFinal ResultPerforming OrganizationAddressCity/State/ZIP CodePhone Number [facility] [address] [place] [phone] * (ABNORMAL) Comprehensive Metabolic Panel (11/05/2024 6:14 AM EDT) Only the most recent of5 resultswithin the time period is included. ComponentValueRef RangeTest MethodAnalysis TimePerformed AtPathologist Signature Xwwyzs181060 - 145 mmol/L11/05/2024 7:16 AM [facility] Potassium5.4(H)3.5 - 5.1 mmol/L11/05/2024 7:16 AM [facility] AFDFdrnxtmt45466 - 108 mmol/L11/05/2024 7:16 AM [facility] TFFIabqfwklwjs0532 - 32 mmol/L11/05/2024 7:16 AM [facility] LABAnion Ywd5483 - 20 mmol/L11/05/2024 7:16 AM [facility] FYMMdcqmjy487(H)65 - 99 mg/dL11/05/2024 7:16 AM [facility] DTNCCM42 - 25 mg/dL11/05/2024 7:16 AM [facility] LABCreatinine0.740.50 - 1.30 mg/dL11/05/2024 7:16 AM [facility] QUAmIOX092>=60 mL/min/1.73 m211/05/2024 7:16 AM [facility] LABComment:Estimated GFR was calculated using the 2020 CKD-EPI creatinine equation.BUN/Creatinine Ratio12.210.0 - 20.009 7:16 AM [facility] LABTotal Protein7.36.0 - 8.0 g/dL11/05/2024 7:16 AM [facility] LABAlbumin4.03.2 - 5.2 g/dL11/05/2024 7:16 AM [facility] YPUSefgkbt04.18.4 - 10.2 mg/dL11/05/2024 7:16 AM [facility] LABAlkaline Cjveopevoyk468(H)40 - 140 U/L 11/05/2024 7:16 AM [facility] ZQBEQP875-40 U/L U/L 11/05/2024 7:16 AM [facility] EQLHGT85(H)0-50 U/L U/L 11/05/2024 7:16 AM [facility] LABTotal Bilirubin0.20.0 - 1.3 mg/dL11/05/2024 7:16 AM [facility] LABSpecimen (Source) Anatomical Location / LateralityCollection Method / VolumeCollection Time Received TimeBloodBLOOD SPECIMEN / UnknownVenipuncture / Bxounay5211/05/2024 6:14 AM EDT11/05/2024 6:42 AM EDT [facility] - 11/05/2024 7:16 AM T [facility] has implemented the eGFR calculation approach that does not have a coefficient for race that conforms to the NKF-ASN Task Force Recommendations. Authorizing ProviderResult TypeResult StatusDanielito KULKARNI BLOOD ORDERABLESFinal ResultPerforming OrganizationAddressCity/State/ZIP CodePhone Number [facility] [address] [place] [address] * (ABNORMAL) Lipase (11/03/2024 5:50 AM EDT) Only the most recent of2 resultswithin the time period is included. ComponentValueRef RangeTest MethodAnalysis TimePerformed AtPathologist Signature Jkvchj097(H)15 - 65 U/L11/03/2024 11:[address] [facility] Specimen (Source)Anatomical Location / LateralityCollection Method / Volume Collection TimeReceived TimeBloodBLOOD SPECIMEN / UnknownVenipuncture / Unknown 11/03/2024 5:50 AM EDT11/03/2024 7:02 AM EDT Narrative Authorizing ProviderResult TypeResult StatusChrista Ordonez [facility] BLOOD ORDERABLESFinal ResultPerforming OrganizationAddressCity/State/ZIP Code Phone Number [facility] [place] [address] * XR OR Fluoroscopy Time (11/02/2024 2:26 PM EDT)Specimen (Source)Anatomical Location / LateralityCollection Method / VolumeCollection TimeReceived Time Narrative GE RIS - 11/02/2024 2:27 PM EDT This is an auto finalized result. Please refer to patient chart for further information. Authorizing ProviderResult TypeResult StatusLeonardo Gottlieb MDG FLUOROSCOPY ORDERABLESFinal ResultPerforming OrganizationAddressCity/State/ZIP CodePhone Number GE [...] none Lip/tooth/tongue trauma: no Authorizing ProviderResult TypeResult StatusNestormirza Mustafa MDPR ANESTHESIAFinal Result * ERCP (11/02/2024 1:14 PM EDT) Narrative Authorizing ProviderResult TypeResult StatusDadalila Jeremy Gabrielle PEREZGI PROCEDURE ORDERABLESFinal Result * PT/INR (11/02/2024 7:06 AM EDT)ComponentValueRef RangeTest MethodAnalysis Time Performed AtPathologist SignatureProtime (PT)13.711.8 - 14.3 nxwvshs1111/02/2024 8:23 AM [facility] LABINR1.00.8 - 1.109 8:23 AM [facility] LABSpecimen (Source)Anatomical Location / LateralityCollection Method / VolumeCollection TimeReceived TimeBloodBLOOD SPECIMEN / UnknownVenipuncture / Njigntg8611/02/2024 7:06 AM EDT11/02/2024 7:32 AM EDT Narrative [facility] - 11/02/2024 8:23 AM EDT During the induction phase of oral anticoagulation, the INR may not reflect the anticoagulation status of the patient. Therapeutic ranges for INR's are: Most clinical situations: INR 2.0-3.0 Mechanical Prosthetic Valve: INR 2.5-3.5 Critical: INR >5.0 Authorizing ProviderResult TypeResult StatusHoma Chavez [facility] BLOOD ORDERABLES Final ResultPerforming OrganizationAddressCity/State/ZIP CodePhone Number [facility] [address] [place] [address] * CT Abdomen With And Without Contrast [...] imaged distal esophagus which may represent esophagitis. [employer] Workstation ID: ?? [id number] Narrative 11/02/2024 10:00 [...] SYJ/lab Workstation ID: [id number] Authorizing ProviderResult TypeResult StatusLeonardo Gottlieb MDIMG CT ORDERABLESFinal Result * (ABNORMAL) Drugs of Abuse Screen, Urine (10/31/2024 11:33 PM EDT)Component ValueRef RangeTest MethodAnalysis TimePerformed AtPathologist Signature Amphetamine Screen, UrineNone DetectedNone Cpszyuqv58/22/2025 12:02 AM [facility] LABComment:Urine Amphetamine Cutoff: < 1000 ng/mL = None DetectedBarbiturate Screen, UrineNone DetectedNone Cleesobf27/22/2025 12:02 AM [facility] LABComment:Urine Barbiturates Cutoff: < 200 ng/mL = None DetectedBenzodiazepine Screen, UrineNone DetectedNone Dybdqmgw30/22/2025 12:02 AM [facility] LABComment:Urine Benzodiazepine Cutoff: < 200 ng/mL = None DetectedCannabinoid Screen, Urine None DetectedNone Dbqzplnr86/22/2025 12:02 AM [facility] LABComment:Urine Cannabinoids Cutoff: < 50 ng/mL = None DetectedCocaine, Screen UrineNone DetectedNone Ajffitlj16/22/2025 12:02 AM [facility] LABComment:Urine Cocaine Cutoff: < 300 ng/mL = None DetectedMethadone Screen, UrineNone DetectedNone Bentfxlq38/22/2025 12:02 AM [facility] LABComment:Urine Methadone Cutoff: < 300 ng/mL = None DetectedOpiate Screen, UrinePresumptive Positive(A)None Detected 11/01/2024 12:02 AM [facility] LABComment:Urine Opiates Cutoff: < 300 ng/mL = None DetectedOxycodone Screen, UrineNone DetectedNone Dtqqtbmo69/22/2025 12:02 AM [facility] LABComment:Urine Oxycodone Cutoff: < 100 ng/mL = None DetectedBuprenorphine, UrNone Detected None Uspgdaav98/22/2025 12:02 AM [facility] LABComment: Urine Buprenorphine Cutoff: < 5 ng/mL = None DetectedFentanyl, UrNone Detected None Jgariizq14/22/2025 12:02 AM [facility] LABComment: Urine Fentanyl Cutoff: < 1 ng/mL = None DetectedSpecimen (Source)Anatomical Location / LateralityCollection Method / VolumeCollection TimeReceived Time UrineURINE SPECIMEN / UnknownCollection / Juqtlls5110/31/2024 11:33 PM EDT 10/31/2024 11:38 PM EDT Narrative [facility] - 11/01/2024 12:02 AM EDT Screen results should be used for treatment purposes only. Specimen will be kept for 2 weeks, if the sample is adequate. ??Confirmation testing can be initiated by calling the lab within 2 weeks. Authorizing ProviderResult TypeResult StatusJustin Oscar ORDAZ ORDERABLESFinal ResultPerforming OrganizationAddressCity/State/ZIP CodePhone Number [facility] [address] [place] [address] * (ABNORMAL) Urinalysis (10/31/2024 11:33 PM EDT)ComponentValueRef RangeTest MethodAnalysis TimePerformed AtPathologist SignatureColor, UrineYellow Colorless, Efojel8511/01/2024 12:20 AM [facility] Clarity, WbcveZuryxVjlbw43/22/2025 12:20 AM [facility] LABSpecific Gravity1.0201.005 - 1.5215011/01/2024 12:20 AM [facility] LABpH, Urine5.55.0 - 7.009 12:20 AM [facility] LABProtein, UrineNegativeNegative mg/dL11/01/2024 12:20 AM [facility] LABGlucose, UrineNegativeNegative mg/dL 11/01/2024 12:20 AM [facility] LABKetones, Urine>=80(A) Negative mg/dL11/01/2024 12:20 AM [facility] Bilirubin, AbdotJkcdwcmuMszbwetw00/22/2025 12:20 AM [facility] LABUrobilinogen, Urine<2.0<2.0 mg/dL11/01/2024 12:20 AM [facility] LABBlood, EepisAsetbvzoAyxwslxb65/22/2025 12:20 AM EDT [facility] LABNitrite, QlifqQrocqznfIxjtpqtj07/22/2025 12:20 AM [facility] LABLeukocyte Esterase, UrineNegative Cnncmhpf24/22/2025 12:20 AM [facility] LABWBCs, Urine10 - 5 /hpf11/01/2024 12:20 AM [facility] LABRBCs, Urine<10 - 3 /hpf11/01/2024 12:20 AM [facility] LABBacteria, Urine None SeenNone Seen /hpf11/01/2024 12:20 AM [facility] Mucus, UrineRareNone Seen, Rare /lpf11/01/2024 12:20 AM [facility] LABSpecimen (Source)Anatomical Location / LateralityCollection Method / VolumeCollection TimeReceived TimeUrineCollection / Sqtzyal0310/31/2024 11:33 PM EDT10/31/2024 11:38 PM EDT Narrative [facility] - 11/01/2024 12:20 AM EDT Microscopic examination is performed on all urinalysis samples and only positive findings are reported. The test for blood on the chemical analytic portion of urinalysis may also be positive due to hemoglobinuria and myoglobinuria and if red blood cells are present they are quantified by microscopic examination. Authorizing ProviderResult TypeResult StatusJustin Oscar ORDAZ ORDERABLESFinal ResultPerforming OrganizationAddressCity/State/ZIP CodePhone Number [facility] [address] [place] [address] * ECG 12 Lead (10/31/2024 4:21 PM EDT)ComponentValueRef RangeTest MethodAnalysis TimePerformed AtPathologist SignatureVentricular Nwnd57VMYSUQIVcgyjc Zjao29FYV MUSEP-R Hdxtfrac834xhUIWGWMU Ubrrsoum02yeJFLRV-T Dzetzamu217xiGKDKZES Calculation (Bezet)414msMUSEP Pwho09tdtinzcEEQDS Wevs05edvnvqmRZOVX Axis71 degreesMUSESpecimen (Source)Anatomical Location / LateralityCollection Method / VolumeCollection TimeReceived Time10/31/2024 4:21 PM EDT11/01/2024 8:01 AM EDT Narrative MUSE - 11/01/2024 8:01 AM EDT Normal sinus rhythm with sinus arrhythmia Normal ECG Confirmed by ARIADNE ??Catherine Monsalve ([id number]) on 11/01/2024 8:01:33 AM Authorizing ProviderResult TypeResult StatusJessmarleni JOHNSON-CECG ORDERABLESFinal ResultPerforming OrganizationAddressCity/State/ZIP CodePhone Number MUSE from Last 3 Months Insurance Advance Directives For more information, please contact: [phone] * Full Code (Latest Code Status on File) Date ActivatedDate InactivatedComments10/31/2024 2:13 PM11/05/2024 7:25 PM Care Teams Team MemberRelationshipSpecialtyStart DateEnd Date No, Physician [facility] PCP - General10/31/24
--- OUTSIDE RECORDS SUMMARY | 2024-12-22 14:21 | XMS_ITS | Patient Health Record ---
Author Organization [facility] [place] Address [address] [place] [address] Care Team Providers Care Marine Scientist Name Role Phone Datt , Ganesh Primary Care Provider Unavailabl e Allergies Allergen (clinical drug ingredient) Drug/Non Drug Allergy documented on EMR Reaction Allergy Type Onset Date Status aspirin Aspirin Unknown Drug Allergy Active Reason For Referral No Information Medications Medication SIG (Take, Route, Frequency, Duration) Notes Start Date End Date Status Forearm Splint -- Use as directed right arm sara y; Duration: 60 days 07/02/2022ctiveIbuprofen 800 MG1 tablet with food or milk as needed Orally every 8 hrsActiveIbuprofen 800 MG1 tablet with food or milk as needed Orally every 8 hrs; Duration: 30007/02/2022ctiveHYDROcodone-Acetaminophen 5-325 MG1 tablet as needed Orally every 6-8 hrs; Duration: ctive Plan Of Treatment Pending Test Test Name Order Date CT Wrist RT w/o contrast * (Optional 3D Rendering) 06/26/2022 Insurance Providers Payer Name Payer Address Payer Phone Subscriber Number Group Number Insured Name Patient Relationship to Insured Coverage Start Date Coverage End Date [employer] [place] [address] [place] [address] [id number] Evelio Jones - patient is the insuredCARESOURCE [place] MEDICAIDPO [address] [place] [id number], CorySelf - patient is the insured
--- OUTSIDE RECORDS SUMMARY | 2024-12-22 14:21 | XMS_ITS | Clinical Summary ---
Author Organization [employer] tem Address [facility] [id number] [address] [place] [address] Care Team Providers Care Magnetic Doctor Name Role Phone No Pcp, No Pcp Primary Care Provider Unavailabl e Allergies Active AllergyReactionsCriticalityNoted YiljZhtbdcvlIenowrv37/15/2017Ibuprofen 9720VfrhhbjotWhbfxejdSkh78/12/2023 Medications MedicationSigDispense QuantityRefillsLast FilledStart DateEnd DateStatus tesgkx-rowfcifu-wlakvqp 40,000-126,000- 168,000 unit capsule,delayed release(DR/EC) Take 80,000 [...] ProblemNoted DateDiagnosed DateAlcohol-induced acute pancreatitis, unspecified complication mfdkmo8312/21/2022Sinus jjaxvnoaxbi42/11/2023lcohol use disorder 12/21/2022cute on chronic degsakhbykjw64/19/2023Alcohol-induced chronic /21/2021H/O acute sxwkpchegexd27/29/2018Acute pancreatitis 02/19/2017History of alcohol abuse11/24/2016H/O chronic ooljgqsjfsau38/15/2017 Cigarette nicotine dependence without kuavduqjxbac49/15/3314Anzxcer03/15/2017 Mgtuasbozpdb56/10/2017 Resolved Problems ProblemNoted DateDiagnosed DateResolved DatePancreatic duct uzdyfi3310/17/2022 11/25/20233266Hrlifomsovz39urrent severe episode of major depressive disorder without psychotic features without prior sobnsli2201/12/2021 11/25/20239031Kjtizoe49losed posterior dislocation of elbow, left, alrnqke16Herpes simplex virus ypcxwsezn57/21/2021 11/25/2023lcohol-induced acute pqpfztsvchki34Alcohol abuse Genital herpes Immunizations ImmunizationAdministration DatesNext DueInfluenza, Injectable, quadrivalent (PF) 11/23/2016Pneumococcal Spfzpujvhnlymq97/21/8194Yjck95/29/2021 Family History Medical HistoryRelationNameCommentsAsthmaBrother 1No Known ProblemsBrother 2 Heart diseaseFatherVernHypertensionFatherVernOtherFatherVernHeart Stent HyperlipidemiaMotherJayneHypertensionPaternal GrandfatherNo Known ProblemsSister RelationNameStatusCommentsBrother 1AliveBrother 2AliveDaughter 1AliveDaughter 2 AliveDaughter 3AliveFatherVernAliveMotherJayneAlivePaternal GrandfatherAlive Paternal GrandmotherDeceasedSisterAlive Social History Tobacco UseTypesPacks/DayYears UsedDateSmoking Tobacco: Every VjoVgupfqmaav742 Smokeless Tobacco: Never Tobacco Cessation:Ready to Q uit: Not Asked; Counseling Given: Not Answered Alcohol UseStandard Drinks/GkomIczgmwniEat98 (1 standard drink = 0.6 oz pure alcohol)12 pack beer per dayAUDIT-CAnswerDate RecordedFrequency of Alcohol CvubmqxziqjQezao22/23/2020Average Number of DrinksNot on file12/03/2019Frequency of Binge DrinkingNot on file12/03/2019PHQ-2AnswerDate RecordedTotal Score3 12/21/2022Housing InstabilityAnswerDate RecordedAre you worried or concerned that in the next two months you may not have stable housing that you own, rent or stay in as a part of a household?No3ChildcareAnswerDate Recorded QqwkoaxubTrkyjij84/11/2019EmploymentAnswerDate RecordedEmploymentUnknown 07/21/2018Hunger ScreeningAnswerDate RecordedWithin the past 12 months we worried whether our food would run out before we got money to buy more.Never True07/28/2024Within the past 12 months the food we bought just didn't last and we didn't have money to get more.Never True07/28/2024Purpose - LifeAnswerDate RecordedPurpose and direction in miolEbszysp08/11/2021ex and Gender Information ValueDate RecordedSex Assigned at XyemeLjyw91/09/2024 12:02 PM ESTLegal SexMale 09/13/2014 9:41 PM EDTGender GasxbjuhBvgi77/09/2024 12:02 PM ESTSexual OrientationNot on file Last Filed Vital Signs Vital SignReadingTime TakenCommentsBlood Ivzxnpaq555/4011207/28/2024 6:43 PM EDT Xrhuu6529/18/2025 6:43 PM OQABzpkwaadlty90.9 ??C (98.4 ??F)07/28/2024 4:13 PM EDTRespiratory Mdas1746 6:43 PM EDTOxygen Cquuflagxt689%07/28/2024 6:43 PM EDTInhaled Oxygen Concentration--Baqbas00.9 kg (121 lb)07/28/2024 4:13 PM EDT Kzzaua663.2 cm (5' 7 )07/28/2024 4:13 PM EDTBody Mass Index18.95007/28/2024 4:13 PM EDT Plan of Treatment Health MaintenanceDue DateLast DoneCommentsTobacco Herrwtmjnw75/04/1989 Depression Lnaegpswl66Influenza Erqidtg34 Adult BMI Inncmdeyx29Tobacco Bczllfwlp76 DTaP,Tdap and Td Vaccines (3 - Td [...] (Latest Code Status on File) Date ActivatedDate ZokremlyqmoMqdczcll12/11/2023 1:38 AM11 4:42 PM * Full Code Date ActivatedDate InactivatedComments03/31/2022 9:15 PM2 7:13 PM * Full Code Date ActivatedDate HxocogiytyaQbszvcgh45/12/2017 4:40 PM10 1:51 PM * Full Code Date ActivatedDate InactivatedComments09/19/2016 5:42 PM09/24/2016 7:47 PM Care Teams Team MemberRelationshipSpecialtyStart DateEnd Date No Pcp, [place] [address] [facility] Aknjvugr37/[facility]/24
[2024-12-22 14:27] VITALS: O2SAT 99
--- NOTE | 2024-12-22 15:25 | ED.GENADUL1 ---
HPI HPI - General Adult General Chief complaint: Headache Stated complaint: HEADACHE Time Seen by Provider: 12/22/24 14:11 Source: patient Mode of arrival: walk-in Limitations: no limitations History of Present Illness HPI narrative: Patient presents with 1 day history of headache. Patient states does not feel good. He has history of alcohol intoxication states he had a friend drank 1/5 of whiskey last night. He also had half a bottle of hard lemonade this morning. He denies fever, chills, vomiting. Symptoms mild severity nothing improves or worsens in symptoms. Onset (ago): day(s) (Today) Location: Reports head Associated symptoms: Denies nausea/vomiting Treatments prior to arrival: Reports none Related Data Home Medications ?Medication ?Instructions ?Recorded ?Confirmed fqjvzh-vjpoxdii-lobkcnh(pork) 2 cap PO TID 07/17/24 12/02/24 40,000-126,000-168k unit capsule,del rel (Zenpep) ondansetron 4 mg disintegrating mg 12/02/24 tablet oxycodone 5 mg tablet mg 12/02/24 Previous Rx's ?Medication ?Instructions ?Recorded acetaminophen 300 mg-codeine 30 mg 1 tab PO Q6H PRN pain 5 days #20 12/02/24 tablet tabs promethazine 25 mg tablet 25 mg PO Q6H PRN nausea and 12/02/24 vomiting #20 tabs acetaminophen 325 mg tablet 325 mg PO Q6H PRN fever or pain 12/22/24 (Tylenol) #14 tabs chlordiazepoxide HCl 25 mg capsule 25 mg PO TID PRN alcohol 12/22/24 withdrawal #10 caps promethazine 25 mg tablet 25 mg PO TID PRN nausea /headache 12/22/24 #14 tabs thiamine HCl (vitamin B1) 100 mg 100 mg PO DAILY #20 tabs 12/22/24 tablet Allergies Allergy/AdvReac Type Severity Reaction Status Date / Time aspirin Allergy Unknown Unknown Verified 12/02/24 15:17 Opioid HPI Opioid Management Most Recent Opioid Data: Last Pain Scale 8 Today, 15:30 Last APR Pain Assessment Today, 15:30 Review of Systems ROS Status of ROS 10 or more systems reviewed and unremarkable except as noted in history and below Constitutional Denies: fever Eyes Denies: change in vision or blurry vision Ears, nose, mouth, and throat Denies: throat pain Cardiovascular Denies: chest pain Respiratory Denies: shortness of breath Gastrointestinal Denies: abdominal pain Genitourinary Denies: painful urination or blood in urine Musculoskeletal Denies: back pain [facility] Social History Little interest or pleasure in doing things: not at all Feeling down, depressed, or hopeless: not at all Exam Constitutional Vital Signs, click to edit/add: Last Vital Signs Temp 98.1 F 12/22/24 14:13 Pulse 88 12/22/24 16:41 Resp 18 12/22/24 16:41 BP 136/75 12/22/24 16:41 Pulse Ox 99 12/22/24 16:41 O2 Del Method Room Air 12/22/24 16:41 Documenting provider has reviewed patient's vital signs: yes Common normals: no apparent distress Exam limitations: no altered mental status General appearance: cooperative, comfortable and well kempt; not in distress HENMT Common normals: normocephalic Head and scalp: normal to inspection Face and sinus: normal facial exam General ear: hearing not grossly impaired External ear: external ears normal Eye Common normals: PERRL, EOMs intact bilaterally and conjunctivae normal Neck & C-Spine Common normals: full ROM and supple Chest Common normals: palpation of chest normal Respiratory Common normals: normal respiratory effort and clear to auscultation bilaterally Auscultation: clear to auscultation bilaterally Cardio Common normals: regular rate, regular rhythm, S1 normal heart sound and S2 normal heart sound GI Common normals: Normal to inspection, nondistended, normoactive bowel sounds present, soft to palpation and non-tender Back & Pelvis Common normals: thoraco-lumbar ROM normal Extremity Common normals: normal to inspection and full ROM Neuro Common normals: oriented x3 Psych Common normals: mental status grossly normal, thought process normal, cooperative, affect normal and speech normal Course Vital Signs Vital signs: Vital Signs Temperature 98.1 F 12/22/24 14:13 Pulse Rate 89 12/22/24 14:13 Respiratory Rate 18 12/22/24 14:13 Blood Pressure 138/92 H 12/22/24 14:13 Pulse Oximetry 99 12/22/24 14:13 Oxygen Delivery Method Room Air 12/22/24 14:13 Temperature 98.1 F 12/22/24 14:13 Pulse Rate 88 12/22/24 16:41 Respiratory Rate 18 12/22/24 16:41 Blood Pressure 136/75 12/22/24 16:41 Pulse Oximetry 99 12/22/24 16:41 Oxygen Delivery Method Room Air 12/22/24 16:41 Medical Decision Making MDM Narrative Medical decision making narrative: Patient well-known to ER staff patient is concerned about possible alcohol poisoning . Will add EtOH lipase for history of pancreatitis CBC BMP 0.9% saline Tylenol. Patient EtOH 36. Patient well-known to ED for alcohol. Lipase is 48 which has improved from prior. Will disposition patient home follow-up with primary care return to if any symptoms worsen or new symptom develop. We recommend discontinuing alcohol going to rehab. We discussed he would have to taper down as he is a chronic user. We provided [facility] for addiction services. Patient may also inquire as to other local services. Nursing provided extensive resources and counseled him on alcohol withdrawal medications including Librium. We also discussed this medication with him. Differential Diagnosis Differential Diagnosis: Alcohol intoxication, withdrawal, headache Medical Records Medical records narrative: Reviewed patient's labs including his lipase today as has improved over prior Lab Data Lab results reviewed: Yes I reviewed the patient's lab results Lab results narrative: Reviewed lab results. EtOH 36 lipase has improved. Labs: Lab Results 12/22/24 Range/Units 15:21 WBC 7.0 (4.0-11.0) 10^3/uL RBC 4.88 (4.70-6.10) 10^6/uL Hgb 15.2 (14.0-18.0) g/dL Hct 43.8 (42.0-54.0) % MCV 89.8 (80.0-94.0) fL MCH 31.1 (25.9-34.0) pg MCHC 34.7 (29.9-35.2) g/dL RDW 12.5 (11.0-15.0) % Plt Count 242 (150-450) 10^3/uL MPV 9.0 L (9.5-13.5) fL Neut % (Auto) 47.6 (43.0-75.0) % Lymph % (Auto) 44.6 (20.5-60.0) % Towns % (Auto) 6.4 (1.7-12.0) % Eos % (Auto) 0.3 L (0.9-7.0) % Baso % (Auto) 1.0 (0.2-2.0) % Neut # (Auto) 3.4 (1.4-6.5) 10^3/uL Lymph # (Auto) 3.1 (1.2-3.8) 10^3/uL Towns # (Auto) 0.5 (0.3-0.8) 10^3/uL Eos # (Auto) 0.0 (0.0-0.7) 10^3/uL Baso # (Auto) 0.1 (0.0-0.1) 10^3/uL Abs Immat Gran (auto) 0.01 (0.00-0.03) 10^3/uL Imm/Tot Granulo (auto) 0.1 (0.0-0.5) % Sodium 134 L (136-145) mmol/L Potassium 3.7 (3.5-5.1) mmol/L Chloride 97 L (98-107) mmol/L Carbon Dioxide 26.0 (21.0-32.0) mmol/L Anion Gap 14.7 BUN 8.0 (7.0-18.0) mg/dL Creatinine 0.81 (0.70-1.30) mg/dL Est GFR ( Amer) >60 (>=60 mL/min/1.73m^2) Est GFR (Non-Af Amer) >60 (>=60 mL/min/1.73m^2) BUN/Creatinine Ratio 9.9 Glucose 93 (74-106) mg/dL Calcium 8.9 (8.5-10.1) mg/dL Lipase 48.0 (16.0-77.0) U/L Ethanol Quant 36 mg/dL Discharge Plan Discharge Chief Complaint: Headache Clinical Impression: Alcohol use Headache Qualifiers: Headache type: unspecified Headache chronicity pattern: acute headache Intractability: not intractable Qualified Code(s): R51.9 - Headache, unspecified Patient Disposition: Home, Self-Care Time of Disposition Decision: 16:29 Condition: Good Mode of Transportation: Private Vehicle Prescriptions / Home Meds: New promethazine 25 mg tablet 25 mg PO TID PRN (Reason: nausea /headache) Qty: 14 0RF acetaminophen [Tylenol] 325 mg tablet 325 mg PO Q6H PRN (Reason: fever or pain) Qty: 14 0RF thiamine HCl (vitamin B1) 100 mg tablet 100 mg PO DAILY Qty: 20 0RF chlordiazepoxide HCl 25 mg capsule 25 mg PO TID PRN (Reason: alcohol withdrawal) Qty: 10 0RF No Action Zenpep 40,000-126,000- 168,000 unit capsule,delayed release(DR/EC) 2 cap PO TID Rx Instructions: administer with meals and/or snacks ondansetron 4 mg tablet,disintegrating oxycodone 5 mg tablet acetaminophen-codeine 300-30 mg tablet 1 tab PO Q6H PRN (Reason: pain) 5 Days Qty: 20 0RF promethazine 25 mg tablet 25 mg PO Q6H PRN (Reason: nausea and vomiting) Qty: 20 0RF Print Language: Sinhala Instructions: Abuse of Alcohol (ED), General Headache (ED) Referrals: [facility] addiction services [Other] - 1 week [facility] [Other] - 1 week Physician,Non-Staff, MD [Primary Care Provider] - 1 week Discharge Date/Time: 12/22/24 16:43
[2024-12-22 15:28] LABS: Hematocrit 43.8 % (42.0-54.0); Hemoglobin 15.2 g/dL (14.0-18.0); Immature Granulocytes Abs Auto 0.01 10^3/uL (0.00-0.03); Immature Granulocytes Pct Auto 0.1 % (0.0-0.5); Lymphocytes Absolute Auto 3.1 10^3/uL (1.2-3.8); Mean Corpuscular HGB Conc 34.7 g/dL (29.9-35.2); Mean Corpuscular Hemoglobin 31.1 pg (25.9-34.0); Mean Corpuscular Volume 89.8 fL (80.0-94.0); Platelet Count 242 10^3/uL (150-450); Red Blood Count 4.88 10^6/uL (4.70-6.10); White Blood Count 7.0 10^3/uL (4.0-11.0)
[2024-12-22] MEDS: ACETAMINOPHEN 500 MG TABLET 1000 MG PO (15:30)
[2024-12-22] MEDS: 0.9 % SODIUM CHLORIDE 500 ML 1000 ML IV (15:30)
[2024-12-22 15:40] LABS: Anion Gap 14.7; Blood Urea Nitrogen 8.0 mg/dL (7.0-18.0); Calcium 8.9 mg/dL (8.5-10.1); Carbon Dioxide 26.0 mmol/L (21.0-32.0); Chloride 97 mmol/L (98-107); Estimated GFR (African America >60 (>=60 mL/min/1.73m^2); Estimated GFR (Non-African Ame >60 (>=60 mL/min/1.73m^2); Glucose 93 mg/dL (74-106); Lipase 48.0 U/L (16.0-77.0); Potassium 3.7 mmol/L (3.5-5.1); Sodium 134 mmol/L (136-145)
[2024-12-22] MEDS: CLORDIAZEPOXIDE HCl 25 MG CAPSULE 50 MG PO (16:11)
[2024-12-22] MEDS: PROMETHAZINE HCL 12.5 MG in 0.9 % SODIUM CHLORIDE 50 ML 202 MG IV (16:12)
[2024-12-22] MEDS: THIAMINE MONONITRATE (VIT B1) 100 MG TABLET PO (16:35)
[2024-12-22 16:41] VITALS: BP 136/75; PULSE 88; O2SAT 99
== END 2024-12-22 16:43 | disposition home or self-care (01) ==
PROVIDERS: Physician Assistant; Emergency Provider Student in an Organized Health Care Education/Training Program
DX: R51.9 Headache, unspecified (principal); F10.90 Alcohol use, unspecified, uncomplicated; Y90.1 Blood alcohol level of 20-39 mg/100 ml
CPT/HCPCS: 36415; 80048; 80320; 83690; 85025; 96374; 99284; J2550